=== PATIENT | female | born 1945 | race Caucasian/White ===

== ENCOUNTER 2017-03-31 12:50 | Day surgery (SDC) | payer MEDICARE, MEDICAID ==
[2017-03-30 11:54] VITALS: BMI 43.7
--- NOTE | 2017-03-31 14:33 | OP ---
DATE OF PROCEDURE: 03/31/2017 PRIMARY CARE PHYSICIAN: Dr. Cornelia Smith. TITLE OF PROCEDURE: Colonoscopy with snare polypectomy. PREOPERATIVE DIAGNOSIS: Lower gastrointestinal hemorrhage in the setting of acute diarrhea. POSTOPERATIVE DIAGNOSES: 1. Examination to cecum; good bowel preparation. 2. One small nonbleeding vascular ectasia in the transverse colon, not treated. 3. A 6 mm small sessile polyp in the distal transverse colon, removed by snare electrocautery. 4. No other synchronous polyps identified. 5. Small internal hemorrhoids that were not actively bleeding. PROCEDURE IN DETAIL: Written informed consent was obtained. The patient was brought to the endosco py suite. Total intravenous anesthesia was provided by Dr. Flores and associates. The patient was p laced in the left lateral decubitus position. A digital rectal exam was performed that was unremark able. A Pentax video colonoscope was inserted through the anal canal and advanced under direct visu alization to the cecum. Position in the cecum was verified by clear identification of the ileocecal valve and a cecal strap. The quality of the bowel preparation was good. Each colon segment was ex amined carefully as the colonoscope was slowly withdrawn from the cecum. Vascular pattern and haust ral folds appeared normal. In the mid transverse colon, a small 4 mm nonbleeding vascular ectasia w as identified. In the distal transverse colon, a 6 mm sessile polyp was identified and removed by s nare electrocautery. Good hemostasis was verified post-polypectomy. No other synchronous polyps we re identified. In the rectum, a retroflex view demonstrated small internal hemorrhoids that were no t actively bleeding. There was no evidence of active colitis or colonic ulcer. The colon was decom pressed as the colonoscope was removed from the patient. She was transferred to the day stay [facility] area for post-procedure monitoring. There were no immediate complications. RECOMMENDATIONS: 1. Await pathology results. 2. Ask the patient to call me in 1 week for pathology results. 3. Repeat colonoscopy depending on review of pathology results, most likely in 5 years. 4. Soak in a Sitz baths b.i.d. p.r.n. hemorrhoids. 5. Use Preparation-H suppositories 1 per rectum b.i.d. p.r.n. 6. High fiber diet. 7. Follow up with GI as needed.
== END 2017-03-31 15:05 | disposition home or self-care (01) ==
LOC: SDC 12:50
PROVIDERS: ATTEND Internal Medicine Gastroenterology
PROC: 0DBL8ZX Excision of Transverse Colon, Via Natural or Artificial Opening Endoscopic, Diagnostic (ICD-10-PCS; principal; 2017-03-31)
DX: Z12.11 Encounter for screening for malignant neoplasm of colon (principal); D12.3 Benign neoplasm of transverse colon; K31.819 Angiodysplasia of stomach and duodenum without bleeding; K64.8 Other hemorrhoids; E11.9 Type 2 diabetes mellitus without complications; K21.9 Gastro-esophageal reflux disease without esophagitis; I11.0 Hypertensive heart disease with heart failure; I50.9 Heart failure, unspecified; M19.90 Unspecified osteoarthritis, unspecified site; J45.909 Unspecified asthma, uncomplicated; G47.30 Sleep apnea, unspecified; I25.10 Atherosclerotic heart disease of native coronary artery without angina pectoris; Z79.82 Long term (current) use of aspirin; Z79.4 Long term (current) use of insulin; Z79.899 Other long term (current) drug therapy; Z99.81 Dependence on supplemental oxygen; Z88.1 Allergy status to other antibiotic agents; Z88.5 Allergy status to narcotic agent; Z88.8 Allergy status to other drugs, medicaments and biological substances; Z91.048 Other nonmedicinal substance allergy status; Z98.51 Tubal ligation status; Z91.040 Latex allergy status; Z87.891 Personal history of nicotine dependence; Z85.51 Personal history of malignant neoplasm of bladder
CPT/HCPCS: 36416; 88305; J7620

== ENCOUNTER 2017-08-16 09:22 | Outpatient (CLI) | payer MEDICARE, MEDICAID ==
--- NOTE | 2017-08-16 17:07 | HP ---
DATE OF SERVICE: 08/16/2017 HISTORY OF PRESENT ILLNESS: Ms. Ines Leiva is a very pleasant 72-year-old who presents to the [facility] for evaluation of an ulceration of the right sacral region. The patient states that the ulceration developed subsequent to an ant bite 3 weeks ago. The patient states that she has been rec eiving dressing changes with the assistance of home health for the right sacral ulceration. The joan ent states that home health has been cleansing the ulceration and packing the ulceration on a daily b asis. She states that because of pain associated with packing of the ulceration, she declined packin g of the wound yesterday. The patient has no other complaints today. She denies any fever or chills . The patient was referred to the Wound Center by Dr. Smith on 08/11/2017. PAST MEDICAL HISTORY: 1. Diabetes mellitus. 2. Hypertension. 3. Chronic obstructive pulmonary disease. 4. Gastroesophageal reflux disease. 5. Coronary artery disease. 6. Congestive heart failure. 7. Transitional cell carcinoma of the bladder. 8. Arthritis. 9. Lung nodule. 10. Obstructive sleep apnea. 11. Peripheral vascular disease. 12. Chronic respiratory failure. PAST SURGICAL HISTORY: 1. Surgery for transitional cell carcinoma of the bladder x4. 2. Back surgery. 3. Bilateral tubal ligation. 4. Cholecystectomy. MEDICATIONS: 1. Magnesium oxide. 2. Diovan. 3. Aldactone. 4. Aspirin 81 mg. 5. Brovana. 6. Pro-Air HFA. 7. Zetia. 8. DuoNeb. 9. Symbicort. 10. Calcium plus vitamin D. 11. Fish oil. 12. Lantus. 13. Plavix. 14. Ranitidine. 15. Dexilant. 16. Singulair. 17. Torsemide. 18. Levocetirizine. ALLERGIES: CODEINE, TETRACYCLINE, CEFACLOR, CIPROFLOXACIN. SOCIAL HISTORY: Significant for tobacco use of 1 pack of cigarettes per day for 35 years. The patie nt states that she stopped smoking 25 years ago. The patient admits to only the rare consumption of alcohol. FAMILY HISTORY: Significant for diabetes mellitus. The patient states that her father and grandmoth er were both diagnosed with diabetes mellitus. Family history is also significant for coronary arter y disease. The patient states that her father and grandmother were both diagnosed with coronary aaron ry disease. PHYSICAL EXAMINATION: VITAL SIGNS: Temperature 98.1, pulse 81, respirations 18, blood pressure 110/69, Accu-Chek 103. GENERAL: A 72-year-old female sitting on chair in examination room in no acute distress. HEENT: Normocephalic, atraumatic. The patient is utilizing O2 via nasal cannula. NECK: No nuchal rigidity. CHEST: Clear to auscultation. CARDIOVASCULAR: Regular rate and rhythm. ABDOMEN: Soft. EXTREMITIES: No clubbing or cyanosis. NEUROLOGIC: Grossly nonfocal. BACK: An ulceration of the right sacral region is present, which measures approximately 0.5 x 0.3 cm . Granulation tissue was present within the wound margins. Nonviable tissue present within the woun d margins was debrided with an excisional full-thickness debridement. No purulent drainages associat ed with the wound. No erythema of the skin surrounding the wound is present. ASSESSMENT AND PLAN: 1. Ulceration of right sacral region as described above. Dressing changes of Arglaes powder and bor dered gauze will be initiated today. These dressing changes are to be performed on a daily basis aft er cleansing and irrigation with the assistance of home health. No antibiotics will be prescribed to day based upon the appearance of the wound. I will see Ms. Leiva again in one week. 2. Diabetes mellitus. The patient's Accu-Chek in clinic today is 103. The patient has been told th at for optimal wound healing, her blood glucoses should remain below 150. 3. Hypertension. 4. Chronic obstructive pulmonary disease. 5. Gastroesophageal reflux disease. 6. Coronary artery disease. 7. Congestive heart failure. 8. Transitional cell carcinoma of the bladder. 9. Arthritis. 10. Lung nodule. 11. Obstructive sleep apnea. 12. Peripheral vascular disease. 13. Chronic respiratory failure.
== END 2017-08-16 09:23 | disposition home or self-care (01) ==
LOC: WCC 09:22
PROVIDERS: ATTEND Family Medicine
DX: L89.159 Pressure ulcer of sacral region, unspecified stage (principal); E11.69 Type 2 diabetes mellitus with other specified complication; J44.9 Chronic obstructive pulmonary disease, unspecified; K21.9 Gastro-esophageal reflux disease without esophagitis; I11.0 Hypertensive heart disease with heart failure; I50.9 Heart failure, unspecified; I25.10 Atherosclerotic heart disease of native coronary artery without angina pectoris; C67.9 Malignant neoplasm of bladder, unspecified; M19.90 Unspecified osteoarthritis, unspecified site; R91.1 Solitary pulmonary nodule; G47.33 Obstructive sleep apnea (adult) (pediatric); I73.9 Peripheral vascular disease, unspecified; J96.10 Chronic respiratory failure, unspecified whether with hypoxia or hypercapnia

== ENCOUNTER 2017-08-23 13:59 | Outpatient (CLI) | payer MEDICARE, MEDICAID ==
--- NOTE | 2017-08-23 15:32 | PRG ---
DATE OF SERVICE: 08/23/2017 HISTORY: Ms. Ines Leiva is a very pleasant 72-year-old who presents to the Wound Center for evaluation of an ulceration of the right sacral region. The patient stated at the time of her initi al presentation to the Wound Center that the ulceration developed subsequent to an ant bite 3 weeks p reviously. The patient stated that she had been receiving dressing changes with the assistance of [facility] for the right sacral ulceration. The patient stated that [facility] had been cleansing th e ulceration and packing the ulceration on a daily basis. She stated that because of pain associated with packing of the ulceration, she had declined packing of the wound one day prior to her initial v isit to the Wound Center. The patient was referred to the Wound Center by Dr. Smith on 08/11/2017. After being seen in the Wound Center, dressing changes of Arglaes powder and bordered gauze were in itiated. The patient has been receiving these dressing changes on a daily basis after cleansing and irrigation with the assistance of [facility]. Ms. Leiva has no complaints today. She denies an y fever or chills. PHYSICAL EXAMINATION: VITAL SIGNS: Temperature 98.3, pulse 89, respirations 18, blood pressure 133/60, Accu-Chek 105. BACK: An ulceration of the right sacral region is present which measures approximately 0.5 x 0.2 cm. The dimensions of the wound at the time of the patient's last visit were approximately 0.5 x 0.3 cm . Granulation tissue is present within the wound margins. Nonviable tissue present within the wound margins was debrided with an excisional full-thickness debridement. No purulent drainage is associa cosme with the wound. No erythema of the skin surrounding the wound is present. ASSESSMENT AND PLAN: 1. Ulceration of right sacral region as described above. Dressing changes of Arglaes powder and bor dered gauze will be continued on a daily basis after cleansing and irrigation with the assistance of Home Health. I will see Ms. Leiva again in two weeks. 2. Diabetes mellitus. The patient's Accu-Chek in clinic today is 105. The patient has been reminde d that for optimal wound healing, her blood glucoses should remain below 150. 3. Hypertension. 4. Chronic obstructive pulmonary disease. 5. Gastroesophageal reflux disease. 6. Coronary artery disease. 7. Congestive heart failure. 8. Transitional cell carcinoma of the bladder. 9. Arthritis. 10. Lung nodule. 11. Obstructive sleep apnea. 12. Peripheral vascular disease. 13. Chronic respiratory failure.
== END 2017-08-23 14:00 | disposition home or self-care (01) ==
LOC: WCC 13:59
PROVIDERS: ATTEND Family Medicine
DX: E11.622 Type 2 diabetes mellitus with other skin ulcer (principal); L98.429 Non-pressure chronic ulcer of back with unspecified severity; J44.9 Chronic obstructive pulmonary disease, unspecified; K21.9 Gastro-esophageal reflux disease without esophagitis; I25.10 Atherosclerotic heart disease of native coronary artery without angina pectoris; I11.0 Hypertensive heart disease with heart failure; I50.9 Heart failure, unspecified; C67.9 Malignant neoplasm of bladder, unspecified; M19.90 Unspecified osteoarthritis, unspecified site; R91.1 Solitary pulmonary nodule; G47.33 Obstructive sleep apnea (adult) (pediatric); E11.51 Type 2 diabetes mellitus with diabetic peripheral angiopathy without gangrene; I73.9 Peripheral vascular disease, unspecified; J96.10 Chronic respiratory failure, unspecified whether with hypoxia or hypercapnia

== ENCOUNTER 2017-09-06 13:18 | Outpatient (CLI) | payer MEDICARE, OTHER ==
[~2017-09-06 13:18] MED LIST: Lidocaine 2% Jelly 5 ML TUBE ONE; Sodium Chloride 0.9% 15 ML NEB ONE
--- NOTE | 2017-09-06 17:29 | PRG ---
DATE OF SERVICE: 09/06/2017 SUBJECTIVE: Ms. Ines Leiva is a very pleasant 72-year-old who presents to the Wound Center f or evaluation of an ulceration of the right sacral region. The patient stated at the time of her ini tial presentation to the Wound Center that the ulceration developed subsequent to an ant bite 3 weeks previously. The patient stated that she had been receiving dressing changes with the assistance of Home Health for the right sacral ulceration. The patient stated that home health has been cleansing the ulceration and packing the ulceration on a daily basis. The patient stated that because of pain associated with packing of the ulceration, she declined packing of the wound one day prior to her ini tial visit to the Wound Center. The patient was referred to the Wound Center by Dr. Smith on 08/11. After being seen in the Wound Center, dressing changes of Arglaes powder and bordered gauze w ere initiated. The patient has been receiving these dressing changes on a daily basis after cleansin g and irrigation with the assistance of Home Health. The patient has no complaints today. She denie s any fever or chills. OBJECTIVE: VITAL SIGNS: Temperature 98.1, pulse 98, respirations 18 and blood pressure 104/47. Accu-Chek 120. BACK: An ulceration of the right sacral region is present, which measures approximately 0.4 x 0.5 cm . The dimensions of the wound at the time of the patient's visit on 08/23/2017 were approximately 0. 5 x 0.2 cm. Granulation tissue was present within the wound margins. Necrotic and nonviable tissue present within the wound margins was debrided with an excisional full-thickness debridement with the use of a curette. No purulent drainage is associated with the wound. No erythema of the skin surrou nding the wound is present. No maceration of the skin of the periwound is noted. ASSESSMENT AND PLAN: 1. Ulceration of right sacral region as described above. Dressing changes of Promogran and bordered gauze will be initiated today. These dressing changes are to be performed on a daily basis after cl eansing and irrigation with the assistance of Home Health. I will see Ms. Leiva again in two [facility]. 2. Diabetes mellitus. The patient's Accu-Chek in clinic today is 120. The patient has been reminde d that for optimal wound healing, her blood glucoses should remain below 150. 3. Hypertension. 4. Chronic obstructive pulmonary disease. 5. Gastroesophageal reflux disease. 6. Coronary artery disease. 7. Congestive heart failure. 8. Transitional cell carcinoma of the bladder. 9. Arthritis. 10. Lung nodule. 11. Obstructive sleep apnea. 12. Peripheral vascular disease. 13. Chronic respiratory failure.
== END 2017-09-06 13:19 | disposition home or self-care (01) ==
LOC: WCC 13:18
PROVIDERS: ATTEND Family Medicine
DX: L98.428 Non-pressure chronic ulcer of back with other specified severity (principal); I10 Essential (primary) hypertension; J44.9 Chronic obstructive pulmonary disease, unspecified; K21.9 Gastro-esophageal reflux disease without esophagitis; I25.10 Atherosclerotic heart disease of native coronary artery without angina pectoris; I50.9 Heart failure, unspecified; C67.9 Malignant neoplasm of bladder, unspecified; M19.90 Unspecified osteoarthritis, unspecified site; R91.1 Solitary pulmonary nodule; G47.33 Obstructive sleep apnea (adult) (pediatric); E11.51 Type 2 diabetes mellitus with diabetic peripheral angiopathy without gangrene; I73.9 Peripheral vascular disease, unspecified; J96.10 Chronic respiratory failure, unspecified whether with hypoxia or hypercapnia
CPT/HCPCS: 11042; A4218

== ENCOUNTER 2017-10-04 13:24 | Outpatient (CLI) | payer MEDICARE, MEDICAID ==
--- NOTE | 2017-10-04 15:18 | PRG ---
DATE OF SERVICE: 10/04/2017 HISTORY: Ms. Ines Leiva is a very pleasant 72-year-old who presents to the Wound Center for patricia luation of an ulceration of the left sacral region. The patient stated at the time of her initial pr esentation to the Wound Center that the ulceration had developed subsequent to an ant bite 3 weeks pr eviously. The patient stated that she had been receiving dressing changes with the assistance of [facility] [email or web address] for the left sacral ulceration. The patient stated that home health had been cleansing the ulceration and packing the ulceration on a daily basis. The patient stated that because of pain asso ciated with packing of the ulceration, she declined packing of the wound one day prior to her initial visit to the Wound Center. The patient was referred to the Wound Center by Dr. Smith on 8. After being seen in the Wound Center, dressing changes of Arglaes powder and bordered gauze were initiated. The patient received these dressing changes on a daily basis after cleansing and irrigati on with the assistance of Home Health. At the time of the patient's visit on 09/06/2017, the patient was placed on dressing changes of Promogran and bordered gauze. Again, these dressing changes were performed on a daily basis after cleansing and irrigation with the assistance of Home Health. PHYSICAL EXAMINATION: VITAL SIGNS: Temperature 97.6, pulse 91, respirations 18, blood pressure 124/56. Accu-Chek 85. BACK: An ulceration of the left sacral region is present, which measures approximately 0.5 x 0.5 cm. The dimensions of the wound at the time of the patient's visit on 09/06/2017 were approximately 0.4 x 0.5 cm. Granulation tissue is present within the wound margins. Necrotic and nonviable tissue pr esent within the wound margins was debrided with an excisional full-thickness debridement with the us e of a curette. No purulent drainage is associated with the wound. No erythema of the skin surround ing the wound is present. No maceration of the skin of the periwound is noted. ASSESSMENT AND PLAN: 1. Ulceration of left sacral region as described above. Dressing changes of Santyl will be initiate d today. These dressing changes are to be performed on a daily basis after cleansing and irrigation with the assistance of Home Health. The patient will be enrolled in a program for the home delivery of Santyl. I will see Ms. Leiva again in two weeks. 2. Diabetes mellitus. The patient's Accu-Chek in clinic today is 85. The patient has been reminded that for optimal wound healing, her blood glucoses should remain below 150. 3. Hypertension. 4. Chronic obstructive pulmonary disease. 5. Gastroesophageal reflux disease. 6. Coronary artery disease. 7. Congestive heart failure. 8. Transitional cell carcinoma of the bladder. 9. Arthritis. 10. Lung nodule. 11. Obstructive sleep apnea. 12. Peripheral vascular disease. 13. Chronic respiratory failure.
[2017-10-04] MEDS ORDERED: Sodium Chloride 0.9% 15 ML NEB ONE (17:57)
[2017-10-04] MEDS ORDERED: Lidocaine 2% Jelly 5 ML TUBE ONE (17:57)
== END 2017-10-04 13:25 | disposition home or self-care (01) ==
LOC: WCC 13:24
PROVIDERS: ATTEND Family Medicine
DX: L89.159 Pressure ulcer of sacral region, unspecified stage (principal); E11.9 Type 2 diabetes mellitus without complications; J44.9 Chronic obstructive pulmonary disease, unspecified; C67.9 Malignant neoplasm of bladder, unspecified; I11.0 Hypertensive heart disease with heart failure; I50.9 Heart failure, unspecified; K21.9 Gastro-esophageal reflux disease without esophagitis; I25.10 Atherosclerotic heart disease of native coronary artery without angina pectoris; M19.90 Unspecified osteoarthritis, unspecified site; G47.33 Obstructive sleep apnea (adult) (pediatric); I73.9 Peripheral vascular disease, unspecified; J96.10 Chronic respiratory failure, unspecified whether with hypoxia or hypercapnia; R91.1 Solitary pulmonary nodule
CPT/HCPCS: 11042; A4218

== ENCOUNTER 2017-10-25 09:26 | Outpatient (CLI) | payer MEDICARE, MEDICAID ==
--- NOTE | 2017-10-25 11:46 | PRG ---
DATE OF SERVICE: 10/25/2017 HISTORY: Ms. Ines Leiva is a very pleasant 72-year-old who presents to the Wound Center for patricia luation of an ulceration of the left sacral region. The patient stated at the time of her initial pr esentation to the Wound Center that the ulceration had developed subsequent to an ant bite 3 weeks pr eviously. The patient stated that she has been receiving dressing changes with the assistance of [facility] for the left sacral ulceration. The patient stated that home health had been cleansing the ulceration and impacting the ulceration on a daily basis. The patient stated that because of pain as sociated with packing of the ulceration, she declined packing of the wound one day prior to her initi al visit to the Wound Center. The patient was referred to the Wound Center by Dr. Smith on 018. After being seen in the Wound Center, dressing changes of Arglaes powder and bordered gauze wer e initiated. The patient received these dressing changes on a daily basis after cleansing and irriga tion with the assistance of Home Health. At the time of the patient's visit on 09/06/2017, the patie nt was placed on dressing changes of Promogran and bordered gauze. Again, these dressing changes wer e performed on a daily basis after cleansing and irrigation with the assistance of Home Health. Sin e the patient's last visit, Ms. Leiva has been receiving daily dressing changes of Santyl again w ith the assistance of Home Health. PHYSICAL EXAMINATION: VITAL SIGNS: Temperature 97.5, pulse 83, respirations 18, blood pressure 106/56. Accu-Chek 97. BACK: An ulceration of the left sacral region is present which measures approximately 0.3 x 0.3 cm. The dimensions of the wound at the time of the patient's visit on 10/04/2017 were approximately 0.5 x 0.5 cm. Granulation tissue is present within the wound margins. Necrotic and nonviable tissue pre sent within the wound margins was debrided with an excisional full-thickness debridement. No purulen t drainage is associated with the wound. No erythema of the skin surrounding the wound is present. No maceration of the skin of the periwound is noted. ASSESSMENT AND PLAN: 1. Ulceration of left sacral region as described above. Dressing changes of Santyl will be continue d on a daily basis after cleansing and irrigation with the assistance of Home Health. The patient wa s previously enrolled in a program for the home delivery of Santyl. I will see Ms. Leiva again i n two weeks if her wound is still present at this time. 2. Diabetes mellitus. The patient's Accu-Chek in clinic today is 97. The patient has been reminded that for optimal wound healing, her blood glucoses should remain below 150. 3. Hypertension. 4. Chronic obstructive pulmonary disease. 5. Gastroesophageal reflux disease. 6. Coronary artery disease. 7. Congestive heart failure. 8. Transitional cell carcinoma of the bladder. 9. Arthritis. 10. Lung nodule. 11. Obstructive sleep apnea. 12. Peripheral vascular disease. 13. Chronic respiratory failure.
== END 2017-10-25 09:27 | disposition home or self-care (01) ==
LOC: WCC 09:26
PROVIDERS: ATTEND Family Medicine
DX: L89.159 Pressure ulcer of sacral region, unspecified stage (principal); E11.9 Type 2 diabetes mellitus without complications; J44.9 Chronic obstructive pulmonary disease, unspecified; K21.9 Gastro-esophageal reflux disease without esophagitis; I25.10 Atherosclerotic heart disease of native coronary artery without angina pectoris; I11.0 Hypertensive heart disease with heart failure; I50.9 Heart failure, unspecified; C67.9 Malignant neoplasm of bladder, unspecified; M19.90 Unspecified osteoarthritis, unspecified site; R91.1 Solitary pulmonary nodule; G47.33 Obstructive sleep apnea (adult) (pediatric); I73.9 Peripheral vascular disease, unspecified; J96.10 Chronic respiratory failure, unspecified whether with hypoxia or hypercapnia

== ENCOUNTER 2017-11-15 08:57 | Outpatient (CLI) | payer MEDICARE, OTHER ==
--- NOTE | 2017-11-15 10:36 | PRG ---
DATE OF SERVICE: 11/15/2017 HISTORY: Ms. Ines Leiva is a very pleasant 72-year-old who presents to the Wound Center for evaluation of an ulceration of the left sacral region. The patient stated at the time of her initia l presentation to the Wound Center that the ulceration had developed subsequent to an ant bite 3 week s previously. The patient stated that she had been receiving dressing changes with the assistance of Home Health for the left sacral ulceration. The patient stated that home health had been cleansing the ulceration and packing the ulceration on a daily basis. The patient stated that because of pain associated with packing of the ulceration she declined packing of the wound one day prior to her init ial visit to the Wound Center. The patient was referred to the Wound Center by Dr. Smith on 2017. After being seen in the Wound Center, dressing changes of Arglaes powder and bordered gauze we re initiated. The patient received these dressing changes on a daily basis after cleansing and irrig ation with the assistance of Home Health. At the time of the patient's visit on 09/06/2017 the patie nt was placed on dressing changes of Promogran and bordered gauze. Again, these dressing changes wer e performed on a daily basis after cleansing and irrigation with the assistance of Home Health. Sinc e the patient's last visit, Ms. Leiva has been receiving dressing changes of Santyl again on a da hunter basis after cleansing and irrigation with the assistance of Home Health. PHYSICAL EXAMINATION: VITAL SIGNS: Temperature 97.7, pulse 86, respirations 18, blood pressure 118/54. Accu-Chek 91. BACK: An ulceration of the left sacral region is present which measures approximately 0.4 x 0.3 cm. The dimensions of the wound at the time of the patient's last visit were approximately 0.3 x 0.3 cm. Granulation tissue is present within the wound margins. Necrotic and nonviable tissue present with in the wound margins was debrided with an excisional full-thickness debridement. No purulent drainag e is associated with the wound. No erythema of the skin surrounding the wound is present. No macera tion of the skin of the periwound is noted. ASSESSMENT AND PLAN: 1. Ulceration of left sacral region as described above. Dressing changes of Santyl will be disconti nued. Dressing changes of Promogran will be initiated today. These dressing changes are to be perfo rmed 3 times per week after cleansing and irrigation with the assistance of Home Health. I will see Ms. Leiva again in 2 weeks. 2. Diabetes mellitus. The patient's Accu-Chek in clinic today is 91. The patient has been reminded that for optimal wound healing, her blood glucoses should remain below 150. 3. Hypertension. 4. Chronic obstructive pulmonary disease. 5. Gastroesophageal reflux disease. 6. Coronary artery disease. 7. Congestive heart failure. 8. Transitional cell carcinoma of the bladder. 9. Arthritis. 10. Lung nodule. 11. Obstructive sleep apnea. 12. Peripheral vascular disease. 13. Chronic respiratory failure.
== END 2017-11-15 08:58 | disposition home or self-care (01) ==
LOC: WCC 08:57
PROVIDERS: ATTEND Family Medicine
DX: L89.159 Pressure ulcer of sacral region, unspecified stage (principal); E11.9 Type 2 diabetes mellitus without complications; J44.9 Chronic obstructive pulmonary disease, unspecified; K21.9 Gastro-esophageal reflux disease without esophagitis; I25.10 Atherosclerotic heart disease of native coronary artery without angina pectoris; I11.0 Hypertensive heart disease with heart failure; I50.9 Heart failure, unspecified; M19.90 Unspecified osteoarthritis, unspecified site; R91.1 Solitary pulmonary nodule; G47.33 Obstructive sleep apnea (adult) (pediatric); I73.9 Peripheral vascular disease, unspecified; J96.10 Chronic respiratory failure, unspecified whether with hypoxia or hypercapnia; C67.9 Malignant neoplasm of bladder, unspecified
CPT/HCPCS: 11042

== ENCOUNTER 2017-12-11 12:46 | Outpatient (CLI) | payer MEDICARE, OTHER ==
--- NOTE | 2017-12-11 15:43 | PRG ---
DATE OF SERVICE: 12/11/2017 HISTORY: Ms. Ines Leiva is a very pleasant 72-year-old who presents to the [facility] Center for patricia luation of an ulceration of the left sacral region. The patient stated at the time of her initial pr esentation to the Wound Center that the ulceration had developed subsequent to an ant bite 3 weeks pr eviously. The patient stated that she has been receiving dressing changes with the assistance of [facility] [employer] for the left sacral ulceration. The patient stated that home health had been cleansing the ulceration and packing the ulceration on a daily basis. The patient stated that because of pain asso ciated with packing of the ulceration, she declined packing of the wound one day prior to her initial visit to the Wound Center. The patient was referred to the Wound Center by Dr. Smith on 8. After being seen in the Wound Center, dressing changes of Arglaes powder and bordered gauze were initiated. The patient received these dressing changes on a daily basis after cleansing and irrigati on with the assistance of Home Health. The patient has also received a trial of dressing changes wit h [place]. Since the patient's last visit, Ms. Leiva has been receiving dressing changes of Promo gran every other day after cleansing and irrigation with the assistance of Home Health and the patien t's daughter. PHYSICAL EXAMINATION: VITAL SIGNS: Temperature 98.5, pulse 85, respirations 16, blood pressure 146/65. Accu-Chek 94. BACK: An ulceration of the left sacral region is present, which measures approximately 0.3 x 0.3 cm. The dimensions of the wound at the time of the patient's last visit were approximately 0.4 x 0.3 cm . Granulation tissue is present within the wound margins. Necrotic and nonviable tissue present wit hin the wound margins was debrided with an excisional full-thickness debridement with the use of a cu rette. No purulent drainage is associated with the wound. No erythema of the skin surrounding the w ound is present. No maceration of the skin of the periwound is noted. A lesion of the periwound was excised with the use of scissors and sent to pathology for histologic examination. ASSESSMENT AND PLAN: 1. Ulceration of left sacral region as described above. Dressing changes of Promogran will be mello nued every other day after cleansing and irrigation with the assistance of Home Health and the patien jeremias's daughter. I will see Ms. Leiva again in two weeks. At this time, the patient will be given her biopsy results. The lesion of the periwound was excised and sent to pathology in order to rule o ut fungus or malignancy. The patient understands and is in agreement with the preceding treatment pl an. 2. Diabetes mellitus. The patient's Accu-Chek in clinic today is 94. The patient has been reminded that for optimal wound healing, her blood glucoses should remain below 150. 3. Hypertension. 4. Chronic obstructive pulmonary disease. 5. Gastroesophageal reflux disease. 6. Coronary artery disease. 7. Congestive heart failure. 8. Transitional cell carcinoma of the bladder. 9. Arthritis. 10. Lung nodule. 11. Obstructive sleep apnea. 12. Peripheral vascular disease. 13. Chronic respiratory failure.
== END 2017-12-11 12:47 | disposition home or self-care (01) ==
LOC: WCC 12:46
PROVIDERS: ATTEND Family Medicine
DX: E11.622 Type 2 diabetes mellitus with other skin ulcer (principal); L98.419 Non-pressure chronic ulcer of buttock with unspecified severity; J44.9 Chronic obstructive pulmonary disease, unspecified; K21.9 Gastro-esophageal reflux disease without esophagitis; I11.0 Hypertensive heart disease with heart failure; I50.9 Heart failure, unspecified; J96.10 Chronic respiratory failure, unspecified whether with hypoxia or hypercapnia; I25.10 Atherosclerotic heart disease of native coronary artery without angina pectoris; C67.9 Malignant neoplasm of bladder, unspecified; G47.33 Obstructive sleep apnea (adult) (pediatric)
CPT/HCPCS: 11042; 88305; A4218

== ENCOUNTER 2017-12-25 12:31 | Outpatient (CLI) | payer MEDICARE, OTHER ==
--- NOTE | 2017-12-25 14:04 | PRG ---
DATE OF SERVICE: 12/25/2017 HISTORY: Ms. Ines Leiva is a very pleasant 72-year-old who presents to the Wound Center for patricia luation of an ulceration of the left sacral region. The patient stated at the time of her initial pr esentation to the Wound Center that the ulceration had developed subsequent to ant bite 3 weeks previ ously. The patient stated that she had been receiving dressing changes with the assistance of Home ealth for the left sacral ulceration. The patient stated that home health had been cleansing the ul eration and packing the ulceration on a daily basis. The patient stated that because of pain associa cosme with packing of the ulceration, she declined packing of the wound one day prior to her initial vi sit to the Wound Center. The patient was referred to the Wound Center by Dr. Smith on 08/11/2017. After being seen in the Wound Center, dressing changes of Arglaes powder and bordered gauze were ini tiated. These dressing changes were performed on a daily basis after cleansing and irrigation with t assistance of Home [facility]. The patient has also received a trial of dressing changes with Santyl. Since the patient's last visit, Ms. Leiva has been receiving dressing changes of Promogran with the assistance of [facility] and her daughter. PHYSICAL EXAMINATION: VITAL SIGNS: Temperature 98.1, pulse 92, respirations 22, blood pressure 109/51. Accu-Chek 94. BACK: An ulceration of the sacral region is present which measures approximately 0.3 x 0.4 cm. The dimensions of the wound at the time of the patient's last visit were approximately 0.3 x 0.3 cm. The depths of the wound, however, is less than at the time of the patient's last visit. Granulation tis jameson is present within the wound margins. Necrotic and nonviable tissue present within the wound malgorzata ins was debrided with an excisional full-thickness debridement. No purulent drainage is associated w ith the wound. No erythema of the skin surrounding the wound is present. No maceration of the skin of the periwound is noted. ASSESSMENT AND PLAN: 1. Ulceration of left sacral region as described above. Dressing changes of Promogran will be mello nued every other day or alternatively three times per week after cleansing and irrigation with the as sistance of Home Health and the patient's daughter. I will see Ms. Leiva again in two weeks. Bi opsy of the lesion of the periwound returned hyperkeratotic corneal layer. The patient was given the biopsy results in clinic today. 2. Diabetes mellitus. The patient's Accu-Chek in clinic today is 94. The patient has been reminded that for optimal wound healing, her blood glucoses should remain below 150. 3. Hypertension. 4. Chronic obstructive pulmonary disease. 5. Gastroesophageal reflux disease. 6. Coronary artery disease. 7. Congestive heart failure. 8. Transitional cell carcinoma of the bladder. 9. Arthritis. 10. Lung nodule. 11. Obstructive sleep apnea. 12. Peripheral vascular disease. 13. Chronic respiratory failure.
== END 2017-12-25 12:32 | disposition home or self-care (01) ==
LOC: WCC 12:31
PROVIDERS: ATTEND Family Medicine
DX: L89.159 Pressure ulcer of sacral region, unspecified stage (principal); E11.9 Type 2 diabetes mellitus without complications; I25.10 Atherosclerotic heart disease of native coronary artery without angina pectoris; J44.9 Chronic obstructive pulmonary disease, unspecified; K21.9 Gastro-esophageal reflux disease without esophagitis; I11.0 Hypertensive heart disease with heart failure; I50.9 Heart failure, unspecified; G47.33 Obstructive sleep apnea (adult) (pediatric); M19.90 Unspecified osteoarthritis, unspecified site; I73.9 Peripheral vascular disease, unspecified; C67.9 Malignant neoplasm of bladder, unspecified; J96.10 Chronic respiratory failure, unspecified whether with hypoxia or hypercapnia; R91.1 Solitary pulmonary nodule
CPT/HCPCS: 11042

== ENCOUNTER 2018-01-15 13:44 | Outpatient (CLI) | payer MEDICARE, OTHER ==
--- NOTE | 2018-01-15 18:06 | PRG ---
DATE OF SERVICE: 01/15/2018 HISTORY: Ms. Ines Leiva is a very pleasant 72-year-old who presents to the Wound Center for patricia luation of an ulceration of the left sacral region. The patient stated at the time of her initial pr esentation to the Wound Center that the ulceration had developed subsequent to an ant bite 3 weeks pr eviously. The patient stated that she had been receiving dressing changes with the assistance of [facility] for the left sacral ulceration. The patient stated that Home Health had been cleansing the ulceration and packing the ulceration on a daily basis. The patient stated that because of pain asso ciated with packing of the ulceration, she declined packing of the wound one day prior to her initial visit to the Wound Center. The patient was referred to the Wound Center by Dr. Smith on 8. After being seen in the Wound Center, dressing changes of Arglaes powder and bordered gauze were initiated. These dressing changes were performed on a daily basis after cleansing and irrigation wit h the assistance of [facility]. The patient has also received a trial of dressing changes with Juan yl. Since the patient's last visit, Ms. Leiva has been receiving dressing changes with the [facility] and a family member. PHYSICAL EXAMINATION: VITAL SIGNS: Temperature 98.3, pulse 90, respirations 20, blood pressure 122/61, Accu-Chek 114. BACK: An ulceration of the sacral region is present, which measures approximately 0.5 x 0.3 cm. The dimensions of the wound at the time of the patient's last visit were approximately 0.3 x 0.4 cm. Th e depth of the wound, however, is again less than at the time of the patient's last visit. Granulati on tissue is present within the wound margins. Necrotic and nonviable tissue present within the woun d margins was debrided with an excisional full-thickness debridement. No purulent drainage is associ ated with the wound. No erythema of the skin surrounding the wound is present. No maceration of the skin of the periwound is noted. ASSESSMENT AND PLAN: 1. Ulceration of left sacral region as described above. Dressing changes of Promogran will be mello nued every other day or alternatively three times per week after cleansing and irrigation with the as sistance of Home Health and a family member. I will see Ms. Leiva again in two weeks. 2. Diabetes mellitus. The patient's Accu-Chek in clinic today is 114. The patient has been reminde d that for optimal wound healing, her blood glucoses should remain below 150. 3. Hypertension. 4. Chronic obstructive pulmonary disease. 5. Gastroesophageal reflux disease. 6. Coronary artery disease. 7. Congestive heart failure. 8. Transitional cell carcinoma of the bladder. 9. Arthritis. 10. Lung nodule. 11. Obstructive sleep apnea. 12. Peripheral vascular disease. 13. Chronic respiratory failure.
== END 2018-01-15 13:45 | disposition home or self-care (01) ==
LOC: WCC 13:44
PROVIDERS: ATTEND Family Medicine
DX: E11.622 Type 2 diabetes mellitus with other skin ulcer (principal); L98.499 Non-pressure chronic ulcer of skin of other sites with unspecified severity; J44.9 Chronic obstructive pulmonary disease, unspecified; I25.10 Atherosclerotic heart disease of native coronary artery without angina pectoris; K21.9 Gastro-esophageal reflux disease without esophagitis; I11.0 Hypertensive heart disease with heart failure; I50.9 Heart failure, unspecified; C67.9 Malignant neoplasm of bladder, unspecified; M19.90 Unspecified osteoarthritis, unspecified site; R91.1 Solitary pulmonary nodule; I73.9 Peripheral vascular disease, unspecified; J96.10 Chronic respiratory failure, unspecified whether with hypoxia or hypercapnia; W57.XXXD Bitten or stung by nonvenomous insect and other nonvenomous arthropods, subsequent encounter
CPT/HCPCS: 11042

== ENCOUNTER 2018-03-08 15:45 | Outpatient (CLI) | payer MEDICARE, OTHER ==
--- NOTE | 2018-03-08 18:14 | PRG ---
DATE OF SERVICE: 03/08/2018 HISTORY: Ms. Ines Leiva is a very pleasant 73-year-old who presents to the Wound Center for evaluation of an ulceration of the left sacral region. The patient stated at the time of her initia l presentation to the Wound Center that the ulceration had developed subsequent to an ant bite 3 week s previously. The patient stated that she had been receiving dressing changes with the assistance of Home Health for the left sacral ulceration. The patient stated that home health had been cleansing the ulceration and packing the ulceration on a daily basis. The patient stated that because of pain associated with packing of the ulceration, she declined packing of the wound one day prior to her ini tial visit to the Wound Center. The patient was referred to the Wound Center by Dr. Smith on 08/11. After being seen in the Wound Center, dressing changes of Arglaes powder and bordered gauze w ere initiated. These dressing changes were performed on a daily basis after cleansing and irrigation with the assistance of Home Health. The patient has also received a trial of dressing changes with Santyl. Most recently, the patient has been receiving dressing changes of Promogran. PHYSICAL EXAMINATION: VITAL SIGNS: Temperature 97.5, pulse 103, respirations 28, blood pressure 138/64. Accu-Chek 126. BACK: The ulceration of the sacral region has divided into 2 smaller wounds. The depth of each woun d is less than the depth of the wound at the time of the patient's last visit. Granulation tissue is present within the margins of each wound. Necrotic and nonviable tissue present within the margins of each wound was debrided with an excisional full-thickness debridement with the use of a curette. No purulent drainage is associated with either wound. No erythema of the skin surrounding either wou nd is present. Maceration versus keratinization of the skin of the periwound is noted. ASSESSMENT AND PLAN: 1. Ulceration of left sacral region as described above. As stated above, the ulceration has divided into 2 smaller wounds. Dressing changes of Medihoney and Mepilex border will be initiated today. T hese dressing changes are to be performed 3 times per week after cleansing and irrigation with the as sistance of Home Health. I will see Mr. Leiva again in 3 weeks. 2. Diabetes mellitus. The patient's Accu-Chek in clinic today is 126. The patient has been reminde d that for optimal wound healing, her blood glucoses should remain below 150. 3. Hypertension. 4. Chronic obstructive pulmonary disease. 5. Gastroesophageal reflux disease. 6. Coronary artery disease. 7. Congestive heart failure. 8. Transitional cell carcinoma of the bladder. 9. Arthritis. 10. Lung nodule. 11. Obstructive sleep apnea. 12. Peripheral vascular disease. 13. Chronic respiratory failure.
== END 2018-03-08 15:46 | disposition home or self-care (01) ==
LOC: WCC 15:45
PROVIDERS: ATTEND Family Medicine
DX: E11.622 Type 2 diabetes mellitus with other skin ulcer (principal); L98.429 Non-pressure chronic ulcer of back with unspecified severity; I11.0 Hypertensive heart disease with heart failure; I50.9 Heart failure, unspecified; J44.9 Chronic obstructive pulmonary disease, unspecified; K21.9 Gastro-esophageal reflux disease without esophagitis; C67.9 Malignant neoplasm of bladder, unspecified; M19.90 Unspecified osteoarthritis, unspecified site; R91.1 Solitary pulmonary nodule; G47.33 Obstructive sleep apnea (adult) (pediatric); I73.9 Peripheral vascular disease, unspecified; J96.90 Respiratory failure, unspecified, unspecified whether with hypoxia or hypercapnia
CPT/HCPCS: 11042

== ENCOUNTER 2018-05-29 09:19 | Outpatient (CLI) | payer MEDICARE, MEDICAID ==
--- NOTE | 2018-05-29 09:47 | RAD ---
TWO VIEW CHEST: Comparison: 11-24-16 Indication: Dyspnea. FINDINGS: There is stable linear density of the left lower lung zone indicating subsegmental atelectasis. Diffu se interstitial prominence may relate to edema versus chronic interstitial lung disease, similar appe aring. Cardiac silhouette is at upper limits of normal in size. There is vascular calcification and o sseous degenerative change. IMPRESSION: 1. Persistent linear density left lower lung zone indicating subsegmental atelectasis, or alternative ly, scar. 2. Diffuse interstitial opacities as discussed above. POS: SARAVANAN
== END 2018-05-29 09:20 | disposition home or self-care (01) ==
LOC: RAD 09:19
PROVIDERS: ATTEND Internal Medicine Critical Care Medicine
DX: R06.00 Dyspnea, unspecified (principal); R91.8 Other nonspecific abnormal finding of lung field
CPT/HCPCS: 71046

== ENCOUNTER 2018-12-07 14:42 | Inpatient (IN) | payer MEDICARE, MEDICAID ==
[2018-12-07] MEDS ORDERED: Albuterol Sulfate 2.5 mg/3 ml Neb ONE (16:23)
[2018-12-07 20:21] VITALS: BMI 41.6
[2018-12-07] MEDS ORDERED: Albuterol Sulfate 2.5 mg/3 ml Neb NEB PRN (20:27)
[2018-12-07] MEDS ORDERED: Nitroglycerin 0.4 MG TAB (25 Tab Bottle) SL PRN (20:31)
[2018-12-07] MEDS ORDERED: PROVENTIL INHALER 6.7 G (200 INHALATIONS) INH PRN (20:31)
[2018-12-07] MEDS ORDERED: Budesonide 0.25 MG/2 ML NEB NEB SCH (21:00)
[2018-12-07] MEDS ORDERED: Fluticasone Propionate Nasal Spray 16 gm Bottle NASAL PRN (21:45)
[2018-12-07] MEDS ORDERED: Dextrose 50% Abboject 50 ML SYRINGE SLOW IVP PRN (22:39)
[2018-12-07] MEDS ORDERED: Dextrose 5% in Water 1,000 ML IV PRN (22:39)
[2018-12-07] MEDS ORDERED: Insulin Regular 300 UNITS/3 ML VIAL SC PRN (22:39)
[2018-12-07] MEDS: methylPREDNISolone Sod Succ 40 MG VIAL IVP SCH (23:07)
[2018-12-07] MEDS: Famotidine 20 MG TAB PO SCH (23:07)
[2018-12-07] MEDS: HumaLOG 300 UNITS/3 ML VIAL SC PRN (23:13)
[2018-12-07] MEDS: Loratadine 10 MG TAB PO SCH (23:25)
[2018-12-08] MEDS: Azithromycin 500 MG in Sodium Chloride 0.9% 250 ML 250 ML IVPB SCH (01:46)
[2018-12-08] MEDS: methylPREDNISolone Sod Succ 40 MG VIAL IVP SCH ×4 (05:13→23:37)
[2018-12-08] MEDS: HumaLOG 300 UNITS/3 ML VIAL SC PRN ×4 (05:13→20:59)
[2018-12-08] MEDS: Ezetimibe 10 MG TAB PO SCH (08:27)
[2018-12-08] MEDS: Aspirin 81 mg Enteric Coated Tablet PO SCH (08:27)
[2018-12-08] MEDS: Clopidogrel Bisulfate 75 MG TAB PO SCH (08:27)
[2018-12-08] MEDS: Calcium Carbonate + Vit D 1 TAB PO SCH (08:27)
[2018-12-08] MEDS: Famotidine 20 MG TAB PO SCH ×2 (08:27→20:59)
[2018-12-08] MEDS ORDERED: Budesonide 0.5 MG/2 ML NEB NEB SCH (10:45)
[2018-12-08] MEDS ORDERED: Arformoterol 15 MCG/2 ML NEB NEB SCH (10:45)
[2018-12-08] MEDS: Valsartan 80 MG TAB PO SCH (11:28)
--- NOTE | 2018-12-08 16:32 | PDOC.PN ---
- Subjective Encounter Start Date: 12/08/18 Encounter Start Time: 16:24 Ms. Leiva was seen today in follow-up of COPD exacerbation. She says she is not feeling that much better. - Objective MAR Reviewed: Yes Vital Signs & Weight: Vital Signs (12 hours) Temp Pulse Resp BP BP Pulse Ox 12/08/18 15:49 98.2 F 86 17 109/57 L 96 12/08/18 14:17 92 16 99 12/08/18 11:00 98.1 F 99 20 113/62 95 12/08/18 09:54 89 16 96 12/08/18 08:00 93 L 12/08/18 07:21 98.9 F 88 20 113/62 93 L 12/08/18 04:26 98.1 F 92 16 135/67 94 L Weight Weight 282 lb 3 oz Additional Labs: Accuchecks 12/08/18 12/08/18 12/08/18 15:54 11:31 04:31 POC Glucose 398 H 396 H 374 H 12/07/18 12/07/18 20:43 16:37 POC Glucose 379 H 300 H Phys Exam - Physical Examination HEENT: PERRLA deacreased breath sounds bilaterally, and faint wheezing Cardiovascular: RRR, no significant murmur, no rub Gastrointestinal: soft, non-tender, no distention, positive bowel sounds Musculoskeletal: no edema, pulses present Dx/Plan (1) COPD exacerbation Code(s): J44.1 - CHRONIC OBSTRUCTIVE PULMONARY DISEASE W (ACUTE) EXACERBATION Status: Acute Comment: (2) Acute on chronic respiratory failure with hypoxia Code(s): J96.21 - ACUTE AND CHRONIC RESPIRATORY FAILURE WITH HYPOXIA Status: Resolved (3) Hypertension Code(s): I10 - ESSENTIAL (PRIMARY) HYPERTENSION Status: Chronic (4) CAD (coronary artery disease) Code(s): I25.10 - ATHSCL HEART DISEASE OF [place] CORONARY ARTERY W/O ANG PCTRS Status: Chronic Qualifiers: (5) DM type 2 (diabetes mellitus, type 2) Status: Chronic (6) Morbid obesity Code(s): E66.01 - MORBID (SEVERE) OBESITY DUE TO EXCESS CALORIES Status: Chronic - Plan * Acute on chronic respiratory failure due to COPD exacerbation- continue Duonebs, and empiric antibiotics * HTN- blood pressure is stable * DM- blood glucose is elevated- likely from steroids- will re-start Lantus insulin, and continue the SSI as well. * Continue DVT and GI Prophylaxis
[2018-12-08] MEDS: Spironolactone 25 MG TAB PO SCH (17:22)
[2018-12-08] MEDS: Silver Sulfadiazine 1% Cream 50 GM JAR TOP SCH ×2 (17:22→21:04)
[2018-12-08] MEDS: Budesonide 0.5 MG/2 ML NEB NEB SCH (19:11)
[2018-12-08] MEDS: Arformoterol 15 MCG/2 ML NEB NEB SCH (19:12)
[2018-12-08] MEDS: Loratadine 10 MG TAB PO SCH (20:59)
[2018-12-08] MEDS ORDERED: Insulin Glargine 50 UNITS in Pre-Filled Syringe 1 EACH SC SCH (21:00)
--- NOTE | 2018-12-08 23:15 | CON ---
DATE OF CONSULTATION: 12/08/2018 Ms. Leiva is a 73-year-old female. She was seen recently in the office and was more short of breath than usual. She was started on prednisone. She followed up with Dr. Smtih who added antibiotics. Her family is going to [place] to the [facility] and she was checked before she went until she was fine to travel. She said she did fine on the trip. It was about 24 hours after she got back, she started feeling short of breath. She has had no fever, chills, or sweats. She has not really had any purulent sputum. PAST MEDICAL HISTORY: 1. Remarkable for obesity. 2. Chronic obstructive pulmonary disease. 3. Chronic hypoxemia requiring home O2. 4. Obstructive sleep apnea. She is claustrophobic and will not tolerate CPAP. 5. History of bladder cancer. 6. History of diabetes. 7. Coronary artery disease. 8. History of reflux. 9. History of lipid disorder. 10. History of cholecystectomy. 11. History of pulmonary nodule. She had a CT done in January 2017 that showed no nodule. 12. History of colon polyp removed by Dr. Balderas in March 19. 13. History of CT scan done again on admission yesterday showing no pulmonary emboli again, coronary artery calcifications, small density in the right posterior lung abutting the pleura. It actually was there back in 2017, but was not mentioned in the final report, reviewing all records. FAMILY HISTORY: Negative for lung disease in early age. SOCIAL HISTORY: She is a former smoker, nonsmoker now, nondrinker, nondrug user. She reports allergies to tetracycline, codeine, latex, statins, quinolones. REVIEW OF SYSTEMS: Ten point review of systems completed, otherwise negative. PHYSICAL EXAMINATION: VITAL SIGNS: She is afebrile, heart rate 86-90, respiratory rate is 19, oximetry is 99% on 2 L, blood pressure 109/57. GENERAL: She is in no distress. Pupils are equal sclerae is anicteric. Extraocular movements are full. NECK: Supple. No lymphadenopathy. LUNGS: Remarkable for diffuse wheezes with a prolonged expiratory phase. She is not using accessory muscles. HEART: Regular rhythm. S1, S2 are normal. ABDOMEN: Soft and nontender. EXTREMITIES: Without clubbing, cyanosis, or edema. NEUROLOGIC: Nonfocal. IMPRESSION: 1. [id number] respiratory failure with hypoxemia. 2. Chronic obstructive pulmonary disease with an exacerbation. 3. Bronchitis, likely viral mediated associated with her travel to the [facility]. 4. Deconditioning. 5. Obesity. 6. Intolerance of CPAP. 7. Smooth pulmonary density is unchanged. 8. We will continue nebulized treatments, steroids. Current medications. I agree with Dr. Nguyen's plans. 9. We probably will stop her Brovana and do more frequent ipratropium and albuterol nebulized treatments. I would be happy to follow along with the other physicians caring for. TIME SPENT: This is a 50-minute consult, with greater than 50% of the time spent on the unit coordinating care. Job ID: [id number] MTDD
[2018-12-09] MEDS: Azithromycin 500 MG in Sodium Chloride 0.9% 250 ML 250 ML IVPB SCH (03:17)
[2018-12-09] MEDS: methylPREDNISolone Sod Succ 40 MG VIAL IVP SCH ×3 (05:37→16:14)
[2018-12-09] MEDS: HumaLOG 300 UNITS/3 ML VIAL SC PRN ×4 (05:37→20:39)
[2018-12-09] MEDS: Arformoterol 15 MCG/2 ML NEB NEB SCH ×2 (07:31→18:09)
[2018-12-09] MEDS: Budesonide 0.5 MG/2 ML NEB NEB SCH ×2 (07:33→18:09)
[2018-12-09] MEDS: Valsartan 80 MG TAB PO SCH (08:18)
[2018-12-09] MEDS: Aspirin 81 mg Enteric Coated Tablet PO SCH (08:18)
[2018-12-09] MEDS: Ezetimibe 10 MG TAB PO SCH (08:18)
[2018-12-09] MEDS: Calcium Carbonate + Vit D 1 TAB PO SCH (08:18)
[2018-12-09] MEDS: Famotidine 20 MG TAB PO SCH ×2 (08:18→20:38)
[2018-12-09] MEDS: Silver Sulfadiazine 1% Cream 50 GM JAR TOP SCH ×2 (08:19→20:38)
[2018-12-09] MEDS: Clopidogrel Bisulfate 75 MG TAB PO SCH (08:19)
[2018-12-09] MEDS: Enoxaparin Sodium 30 MG/0.3 ML SYRINGE SC SCH (08:19)
[2018-12-09] MEDS ORDERED: Insulin Glargine 50 UNITS in Pre-Filled Syringe 1 EACH SC SCH (09:00)
[2018-12-09 10:01] LABS: #Lymphocytes 0.8 thou/uL (1.20-3.40); #Monocytes 0.6 thou/uL (0.11-0.59); #Neutrophils 12.4 thou/uL (1.40-6.50); %Basophils 0.1 % (0.0-1.0); %Eosinophils 0.1 % (0.0-10.0); %Lymphocytes 5.4 % (21.0-51.0); %Monocytes 4.3 % (0.0-10.0); %Neutrophils 90.1 % (42.0-75.0); Hemoglobin 13.3 g/dL (12.0-16.0); Mean Corpuscular HGB CONC 31.9 g/dL (32.0-36.0); Mean Corpuscular Hemoglobin 30.9 pg (27.0-31.0); Mean Corpuscular Volume 96.9 fL (78.0-98.0); Mean Platelet Volume 7.3 fL (7.4-10.4); Platelet Count 284 thou/uL (130-400); RBC Distribution Width 13.1 % (11.5-14.5); Red Blood Cell (RBC) Count 4.28 mill/uL (4.20-5.40); White Blood Cell (WBC) Count 13.8 thou/uL (4.8-10.8)
[2018-12-09 10:19] LABS: Anion Gap 15 mmol/L (10-20); BUN (Urea Nitrogen) 28 mg/dL (9.8-20.1); Calc. Creatinine Clearance 75 mL/min (70-130); Calcium 9.7 mg/dL (7.8-10.44); Carbon Dioxide 26 mmol/L (23-31); Chloride 96 mmol/L (98-107); Estimated GFR-MDRD 38; Glucose 365 mg/dL (83-110); Potassium 5.4 mmol/L (3.5-5.1); Sodium 132 mmol/L (136-145)
[2018-12-09] MEDS: Insulin Glargine 70 UNITS in Pre-Filled Syringe SC SCH ×2 (10:28→20:39)
[2018-12-09] MEDS: Spironolactone 25 MG TAB PO SCH (16:13)
--- NOTE | 2018-12-09 17:33 | PDOC.PN ---
- Subjective Encounter Start Date: 12/09/18 Encounter Start Time: 15:00 Ms. Leiva was seen today in follow-up of COPD exacerbation. She says she does not feel any better today than she did yesterday. She says she is still short of breath and fatigued. - Objective MAR Reviewed: Yes Vital Signs & Weight: Vital Signs (12 hours) Temp Pulse Resp BP Pulse Ox 12/09/18 13:02 91 97 12/09/18 08:00 95 12/09/18 07:59 97.8 F 100 22 H 110/53 L 95 12/09/18 07:31 114 H 20 96 Weight Weight 282 lb 3 oz I&O: 12/08/18 12/09/18 12/10/18 06:59 06:59 06:59 Intake Total 800 Balance 800 Result Diagrams: 12/09/18 09:42 12/09/18 09:42 Additional Labs: Accuchecks 12/09/18 12/09/18 12/09/18 15:59 11:13 05:16 POC Glucose 324 H 316 H 355 H 12/08/18 20:56 POC Glucose 396 H Phys Exam - Physical Examination HEENT: PERRLA + mild expiratory wheeze, and decreased air movement Cardiovascular: RRR, no significant murmur, no rub Gastrointestinal: soft, non-tender, no distention, positive bowel sounds Musculoskeletal: pulses present, edema present + non-pitting edema in the lower extremities Dx/Plan (1) COPD exacerbation Code(s): J44.1 - CHRONIC OBSTRUCTIVE PULMONARY DISEASE W (ACUTE) EXACERBATION Status: Acute Comment: (2) Acute on chronic respiratory failure with hypoxia Code(s): J96.21 - ACUTE AND CHRONIC RESPIRATORY FAILURE WITH HYPOXIA Status: Resolved (3) Hypertension Code(s): I10 - ESSENTIAL (PRIMARY) HYPERTENSION Status: Chronic (4) CAD (coronary artery disease) Code(s): I25.10 - ATHSCL HEART DISEASE OF [place] CORONARY ARTERY W/O ANG PCTRS Status: Chronic Qualifiers: (5) DM type 2 (diabetes mellitus, type 2) Status: Chronic (6) Morbid obesity Code(s): E66.01 - MORBID (SEVERE) OBESITY DUE TO EXCESS CALORIES Status: Chronic - Plan * Acute on chronic respiratory failure due to COPD- continue steroids, duonebs, and Azithromycin * HTN- blood pressure is stable * DM- blood glucose is elevated- will begin aurelia sheba steroids * CAD- stable * Hopefully home soon..
[2018-12-09] MEDS: Loratadine 10 MG TAB PO SCH (20:38)
--- NOTE | 2018-12-09 20:53 | PRG ---
DATE OF SERVICE: 12/09/2018 SUBJECTIVE: Ines Ahumada says she does not feel much better than yesterday. OBJECTIVE: VITAL SIGNS: She is afebrile. Heart rate is 95, respiratory rate is 18, oximetry is 99% on 2.5L, blood pressure 110/53. LUNGS: Remarkable for diffuse wheezes. She is not using any accessory muscles. HEART: Regular rhythm. S1, S2 are normal. ABDOMEN: Soft and nontender. EXTREMITIES: Without edema. LABORATORY DATA: White count 13.8, hemoglobin 13.3, platelets 284. Sodium 132, potassium 5.4, chloride 96, bicarb 26, BUN 28, creatinine 1.35. IMPRESSION: 1. Chronic obstructive pulmonary disease exacerbation. 2. Obesity. 3. Claustrophobia with treatment of sleep apnea, so she does not wear continuous positive airway pressure. 4. Chronic hypoxemia requiring home O2. 5. History of bladder cancer. 6. Diabetes. 7. Coronary artery disease. 8. History of pulmonary nodule showing serial radiographs with no change. CT this admission shows no change to a small pleural density. 9. History of colon polyp. 10. Former heavy smoker. 11. Tetracycline, codeine, statin, latex, and quinolone intolerance. We will continue to follow. She should gradually be transitioned into p.o. medications in the next 24 to 48 hours. 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 I would not think she would be ready for at least another couple of days. Job ID: [id number]
[2018-12-10] MEDS: Arformoterol 15 MCG/2 ML NEB NEB SCH ×2 (07:22→18:21)
[2018-12-10] MEDS: Budesonide 0.5 MG/2 ML NEB NEB SCH ×2 (07:25→18:21)
--- NOTE | 2018-12-10 07:47 | HP ---
PRIMARY CARE PHYSICIAN: Cornelia Smith DO CODE STATUS: Full code. TIME OF EVALUATION: 8:20 p.m. CHIEF COMPLAINT: Dyspnea. HISTORY OF PRESENT ILLNESS: A 73-year-old female patient with past medical history of COPD, CHF, hypertension, hyperlipidemia, came to the hospital after having severe gradually worsening shortness of breath associated with some cough and sputum production. No clear triggers, no alleviating factors. The patient had been with the PCP and had been started on Levaquin. The patient follows with Dr. Trevizo as an outpatient, who had placed her on steroids. REVIEW OF SYSTEMS: CONSTITUTIONAL: No fever, chills, or generalized weakness. RESPIRATORY: The patient had cough with sputum production, shortness of breath. CARDIOVASCULAR: No chest pain or palpitation. GASTROINTESTINAL: No nausea, no vomiting, diarrhea or abdominal pain. GLASS BREAKER: No dizziness, headache, or feeling lightheaded. GENITOURINARY: No burning on urination. EXTREMITIES: No leg swelling. All other systems were reviewed and negative except for the findings mentioned above. PAST MEDICAL HISTORY: Diabetes, bladder cancer, hyperlipidemia, hypertension, diabetes type 2, CHF, COPD, high cholesterol. PAST SURGICAL HISTORY: The patient has a history of cholecystectomy, tubal ligation, and bladder surgery x3. PSYCHIATRIC HISTORY: No previous psych history. FAMILY HISTORY:Reviewed and no contributory for current presentation. SOCIAL HISTORY: The patient drinks socially. No drug use. Former smoker, quit more than 10 years ago. Lives at home with family. KNOWN ALLERGIES: Codeine sulfate, latex gloves, statins, tetracyclines. REPORTED MEDICATIONS: 1. Dexilant. 2. Aspirin. 3. Spironolactone. 4. Lasix. 5. Zetia. 6. Ranitidine. 7. Diovan. 8. Nitrostat. 9. Lantus. 10. Fish oil. 11. Nasonex. 12. Potassium chloride. 13. DuoNeb. 14. ProAir. 15. Prednisone. 16. Levocetirizine. 17. Clopidogrel. 18. Metolazone. 19. [place]. 20. Lantus. 21. Brovana. PHYSICAL EXAMINATION: VITAL SIGNS: On presentation, blood pressure 131/63 with heart rate 109, respiratory rate was 22, oxygen saturation was 97% on 2 L of oxygen. GENERAL: The patient is alert, oriented, not in acute distress. HEENT: Eyes, normal conjunctivae. Moist oral mucosa. Anicteric. No JVD. RESPIRATORY: Bilateral air entry is decreased. The patient has no rales. Bilateral wheezes. Symmetric expansion is decreased. CARDIOVASCULAR: Normal rate, regular rhythm. No murmurs. No gallop. No edema. ABDOMEN: Soft. Normal bowel sounds. MUSCULOSKELETAL: Baseline range of motion and strength. No tenderness. SKIN: Warm, intact. No pallor. No rash. No redness. Peripheral pulses are present. Capillary refill seems to intact. NEUROLOGIC: No evidence of any new focal weakness. Cranial nerves seems to be intact. PSYCHIATRIC: The patient has good mood. No anxiety. Optimal judgment. IMAGING STUDIES: EKG was reviewed. The patient has normal sinus rhythm with a rate of 100. Chest CT angio was done. The patient has no evidence of pulmonary embolism or any acute cardiopulmonary process. 1. Coronary artery calcifications. 2. A 1.5 cm smooth mass abutting the pleura in the right posterior costophrenic angle. No change in size or shape since 2017 scan. LABORATORY DATA: The labs were reviewed. The patient has negative troponin, with hematology, white count 8.2, hemoglobin 13.6, MCV 96.2, platelet count 279. Chemistry was done, the patient has a sodium 136, potassium 3.8, chloride 93, carbon dioxide 33, anion gap 14, BUN 24, GFR 66, creatinine 1.21. These were all the same in the previous admissions. Glucose 229, calcium 9.6. LFTs were negative. Beta-natriuretic peptide was normal. Urine was done and was normal. ASSESSMENT AND PLAN: The patient will be placed in the hospital with the following medical problems: 1. Chronic obstructive pulmonary disease exacerbation. The patient has been started on nebs, Solu-Medrol, and antibiotics. 2. Uncontrolled diabetes. Reconcile home medications. Start sliding scale for optimal control. 3. Deep venous thrombosis prophylaxis. 4. Controlled hypertension. Reconcile home medications. Adjust as needed. 5. Hyperlipidemia. Low-cholesterol diet is advised, reconcile home medications. 6. DVT prophylaxis Job ID: [id number] [facility]
[2018-12-10] MEDS: Ezetimibe 10 MG TAB PO SCH (08:15)
[2018-12-10] MEDS: Azithromycin 250 MG TAB PO SCH (08:16)
[2018-12-10] MEDS: Aspirin 81 mg Enteric Coated Tablet PO SCH (08:16)
[2018-12-10] MEDS: Clopidogrel Bisulfate 75 MG TAB PO SCH (08:16)
[2018-12-10] MEDS: predniSONE 20 MG TAB PO SCH (08:16)
[2018-12-10] MEDS: Calcium Carbonate + Vit D 1 TAB PO SCH (08:16)
[2018-12-10] MEDS: Enoxaparin Sodium 30 MG/0.3 ML SYRINGE SC SCH (08:17)
[2018-12-10] MEDS: Silver Sulfadiazine 1% Cream 50 GM JAR TOP SCH ×2 (08:17→20:44)
[2018-12-10] MEDS: Famotidine 20 MG TAB PO SCH ×2 (08:17→20:41)
[2018-12-10] MEDS: Valsartan 80 MG TAB PO SCH (08:18)
[2018-12-10] MEDS: Insulin Glargine 70 UNITS in Pre-Filled Syringe SC SCH ×2 (08:22→20:43)
--- NOTE | 2018-12-10 09:41 | PRG ---
DATE OF SERVICE: 12/10/2018 SUBJECTIVE: This morning, she is complaining of difficulty breathing, coughing, wheezing, and will cough up any sputum. She is on twice a day Brovana, budesonide, and Plavix. Neb treatment, supportive care. Steroids. OBJECTIVE: VITAL SIGNS: Blood pressure 130/80, saturations 96%. CHEST: Decreased breath sounds. No wheezing. CARDIAC: Normal S1 and S2. No gallop. ABDOMEN: No masses. ASSESSMENT: End-stage chronic obstructive pulmonary disease, morbid obesity. PLAN: Continue steroids, neb treatment. We will follow. Job ID: [id number]
[2018-12-10] MEDS ORDERED: Oxymetazoline HCl 0.05% ( 15 ML ) NASAL PRN (12:51)
--- NOTE | 2018-12-10 12:54 | PDOC.PN ---
- Subjective Encounter Start Date: 12/10/18 Encounter Start Time: 12:52 was seen today in follow-up of COPD exacerbation. She says she does not feel much better. she says she has congestion in her chest which seems to get stuck. She continues to have some dyspnea. - Objective MAR Reviewed: Yes Vital Signs & Weight: Vital Signs (12 hours) Temp Pulse Resp BP Pulse Ox 12/10/18 11:00 98.1 F 84 18 116/66 93 L 12/10/18 08:00 97.9 F 75 20 97/50 L 96 12/10/18 07:22 85 16 96 Weight Weight 282 lb 3 oz I&O: 12/09/18 12/10/18 12/11/18 06:59 06:59 06:59 Intake Total 1800 240 Balance 1800 240 Result Diagrams: 12/09/18 09:42 12/09/18 09:42 Additional Labs: Accuchecks 12/10/18 12/10/18 12/09/18 11:29 04:41 20:34 POC Glucose 152 H 174 H 301 H 12/09/18 15:59 POC Glucose 324 H Phys Exam - Physical Examination HEENT: PERRLA Respiratory: wheezing present better airmovement today Cardiovascular: RRR, no significant murmur, no rub Gastrointestinal: soft, non-tender, no distention, positive bowel sounds Musculoskeletal: pulses present, edema present Dx/Plan (1) COPD exacerbation Code(s): J44.1 - CHRONIC OBSTRUCTIVE PULMONARY DISEASE W (ACUTE) EXACERBATION Status: Acute Comment: (2) Acute on chronic respiratory failure with hypoxia Code(s): J96.21 - ACUTE AND CHRONIC RESPIRATORY FAILURE WITH HYPOXIA Status: Resolved (3) Hypertension Code(s): I10 - ESSENTIAL (PRIMARY) HYPERTENSION Status: Chronic (4) CAD (coronary artery disease) Code(s): I25.10 - ATHSCL HEART DISEASE OF [place] CORONARY ARTERY W/O ANG PCTRS Status: Chronic Qualifiers: (5) DM type 2 (diabetes mellitus, type 2) Status: Chronic (6) Morbid obesity Code(s): E66.01 - MORBID (SEVERE) OBESITY DUE TO EXCESS CALORIES Status: Chronic - Plan * Acute on chronic respiratory failure due to COPD exacerbation- continue as per PCCM * Continue Duonebs, steroids, and empiric antibiotics * Will add Mucinex * HTN- blood pressure is stable. * DM- blood glucose is beginning to trend down * CAD- stable
[2018-12-10] MEDS: Spironolactone 25 MG TAB PO SCH (16:48)
[2018-12-10] MEDS: HumaLOG 300 UNITS/3 ML VIAL SC PRN (16:49)
[2018-12-10] MEDS: Loratadine 10 MG TAB PO SCH (20:41)
[2018-12-10] MEDS: guaiFENesin ER 600 MG TAB PO SCH (20:43)
[2018-12-10] MEDS: Oxymetazoline HCl 0.05% (30 ML BOT) NS PRN (21:13)
[2018-12-11] MEDS: Arformoterol 15 MCG/2 ML NEB NEB SCH ×2 (07:16→18:56)
[2018-12-11] MEDS: Budesonide 0.5 MG/2 ML NEB NEB SCH ×2 (07:18→18:56)
[2018-12-11] MEDS: guaiFENesin ER 600 MG TAB PO SCH ×2 (09:02→20:02)
[2018-12-11] MEDS: Azithromycin 250 MG TAB PO SCH (09:02)
[2018-12-11] MEDS: Calcium Carbonate + Vit D 1 TAB PO SCH (09:02)
[2018-12-11] MEDS: Valsartan 80 MG TAB PO SCH (09:02)
[2018-12-11] MEDS: Ezetimibe 10 MG TAB PO SCH (09:02)
[2018-12-11] MEDS: predniSONE 20 MG TAB PO SCH (09:02)
[2018-12-11] MEDS: Famotidine 20 MG TAB PO SCH ×2 (09:03→20:02)
[2018-12-11] MEDS: Clopidogrel Bisulfate 75 MG TAB PO SCH (09:03)
[2018-12-11] MEDS: Enoxaparin Sodium 30 MG/0.3 ML SYRINGE SC SCH (09:03)
[2018-12-11] MEDS: Aspirin 81 mg Enteric Coated Tablet PO SCH (09:03)
[2018-12-11] MEDS: Insulin Glargine 70 UNITS in Pre-Filled Syringe SC SCH (09:07)
--- NOTE | 2018-12-11 09:12 | PRG ---
DATE OF SERVICE: 12/11/2018 SUBJECTIVE: Ines Leiva is a 73-year-old female, still has difficulty breathing, coughing, wheezing. OBJECTIVE: VITAL SIGNS: Saturations are 97% on 2 L, respiratory rate 20, temperature 97, pulse 93, blood pressure 149/67. CHEST: Prolonged expiration. Diffuse wheezing. CARDIAC: Sinus tach. ABDOMEN: No masses. IMPRESSION: End-stage chronic obstructive pulmonary disease, morbid obesity, sleep apnea, poor compliance. PLAN: Continue steroids, neb treatment. Once wheezing improved, she can probably be discharge. Continue PT, supportive care. Job ID: [id number]
[2018-12-11] MEDS: Silver Sulfadiazine 1% Cream 50 GM JAR TOP SCH ×2 (10:39→20:08)
--- NOTE | 2018-12-11 14:39 | PDOC.PN ---
- Subjective Encounter Start Date: 12/11/18 Encounter Start Time: 14:38 Ms. Leiva was seen today in follow-up of COPD. She says she is not feeling much better today. She continues to cough and be short of breath, with phlem which sticks in her throat. - Objective MAR Reviewed: Yes Vital Signs & Weight: Vital Signs (12 hours) Temp Pulse Resp BP Pulse Ox 12/11/18 13:50 98 18 97 12/11/18 08:46 97 12/11/18 07:46 97.7 F 93 20 149/67 H 97 12/11/18 07:18 91 18 98 12/11/18 07:17 91 18 98 12/11/18 07:16 91 18 98 Weight Weight 282 lb 3 oz I&O: 12/10/18 12/11/18 12/12/18 06:59 06:59 06:59 Intake Total 1800 5480 Balance 1800 5480 Result Diagrams: 12/09/18 09:42 12/09/18 09:42 Additional Labs: Accuchecks 12/11/18 12/11/18 12/11/18 12:13 04:43 03:58 POC Glucose 100 103 51 L* 12/10/18 12/10/18 20:44 16:29 POC Glucose 128 H 207 H Phys Exam - Physical Examination HEENT: PERRLA Respiratory: no rales, no rhonchi, wheezing present + bilateral tight wheezing Cardiovascular: RRR, no significant murmur, no rub Gastrointestinal: soft, non-tender, no distention, positive bowel sounds Musculoskeletal: pulses present, edema present Neurological: non-focal, moves all 4 limbs Dx/Plan (1) COPD exacerbation Code(s): J44.1 - CHRONIC OBSTRUCTIVE PULMONARY DISEASE W (ACUTE) EXACERBATION Status: Acute Comment: (2) Acute on chronic respiratory failure with hypoxia Code(s): J96.21 - ACUTE AND CHRONIC RESPIRATORY FAILURE WITH HYPOXIA Status: Resolved (3) Hypertension Code(s): I10 - ESSENTIAL (PRIMARY) HYPERTENSION Status: Chronic (4) CAD (coronary artery disease) Code(s): I25.10 - ATHSCL HEART DISEASE OF [place] CORONARY ARTERY W/O ANG PCTRS Status: Chronic Qualifiers: (5) DM type 2 (diabetes mellitus, type 2) Status: Chronic (6) Morbid obesity Code(s): E66.01 - MORBID (SEVERE) OBESITY DUE TO EXCESS CALORIES Status: Chronic - Plan * Acute on chronic respiratory failure due to COPD exacerbation- continue the current therapy * Hopefully her symptoms will improve over the next few days * DM- blood glucose was a bit low- will lower her dose of scheduled insulin * Home when cleared by Pulmonary * .
[2018-12-11] MEDS: Spironolactone 25 MG TAB PO SCH (16:12)
[2018-12-11] MEDS: HumaLOG 300 UNITS/3 ML VIAL SC PRN (17:28)
[2018-12-11] MEDS: Oxymetazoline HCl 0.05% (30 ML BOT) NS PRN (20:02)
[2018-12-11] MEDS: Loratadine 10 MG TAB PO SCH (20:02)
[2018-12-11] MEDS: Insulin Glargine 60 UNITS in Pre-Filled Syringe 1 EACH SC SCH (20:02)
[2018-12-12] MEDS: Arformoterol 15 MCG/2 ML NEB NEB SCH ×2 (06:19→18:07)
[2018-12-12] MEDS: Budesonide 0.5 MG/2 ML NEB NEB SCH ×2 (06:21→18:07)
[2018-12-12] MEDS: Azithromycin 250 MG TAB PO SCH (08:54)
[2018-12-12] MEDS: Valsartan 80 MG TAB PO SCH (08:54)
[2018-12-12] MEDS: Famotidine 20 MG TAB PO SCH ×2 (08:55→20:32)
[2018-12-12] MEDS: Enoxaparin Sodium 30 MG/0.3 ML SYRINGE SC SCH (08:55)
[2018-12-12] MEDS: predniSONE 20 MG TAB PO SCH (08:55)
[2018-12-12] MEDS: guaiFENesin ER 600 MG TAB PO SCH ×2 (08:55→20:32)
[2018-12-12] MEDS: Calcium Carbonate + Vit D 1 TAB PO SCH (08:55)
[2018-12-12] MEDS: Clopidogrel Bisulfate 75 MG TAB PO SCH (08:55)
[2018-12-12] MEDS: Ezetimibe 10 MG TAB PO SCH (08:55)
[2018-12-12] MEDS: Insulin Glargine 60 UNITS in Pre-Filled Syringe 1 EACH SC SCH ×2 (08:56→20:33)
[2018-12-12] MEDS: Silver Sulfadiazine 1% Cream 50 GM JAR TOP SCH ×2 (09:00→21:57)
[2018-12-12] MEDS: Aspirin 81 mg Enteric Coated Tablet PO SCH (09:07)
--- NOTE | 2018-12-12 09:52 | PRG ---
DATE OF SERVICE: 12/12/2018 SUBJECTIVE: This morning, the patient says she is better. She is less short of breath. Sputums are clear. OBJECTIVE: VITAL SIGNS: Blood pressure is 144/76, saturations are 99% on 2 L, respirations 18, pulse 85, temperature is 97. CHEST: Minimal wheezing. CARDIAC: Normal S1 and S2. No gallop. ABDOMEN: No masses. ASSESSMENT: Chronic obstructive pulmonary disease, morbid obesity, probable sleep apnea. Pulmonary hernández, she is stable enough to be discharged home in the next 24 to 48 hours. She needs to taper her steroids over several weeks. She otherwise has adequate medications at home. Follow up with Dr. Trevizo in 2 weeks or so. Job ID: [id number]
[2018-12-12] MEDS: HumaLOG 300 UNITS/3 ML VIAL SC PRN ×3 (12:32→20:37)
[2018-12-12] MEDS: Spironolactone 25 MG TAB PO SCH (16:23)
--- NOTE | 2018-12-12 18:09 | PDOC.PN ---
- Subjective Encounter Start Date: 12/12/18 Encounter Start Time: 18:00 Subjective: f/u for COPD exacerbation on Prednisone, Zithromax, Brovana -: and Pulmicort. Still wheezes and SOB. - Objective MAR Reviewed: Yes Vital Signs & Weight: Vital Signs (12 hours) Temp Pulse Resp BP Pulse Ox 12/12/18 13:51 100 16 98 12/12/18 08:53 99 12/12/18 07:45 97.9 F 85 18 144/76 H 99 12/12/18 06:22 87 98 12/12/18 06:21 87 18 98 12/12/18 06:19 87 18 98 Weight Weight 282 lb 3 oz I&O: 12/11/18 12/12/18 12/13/18 06:59 06:59 06:59 Intake Total 5480 2880 1500 Balance 5480 2880 1500 Result Diagrams: 12/09/18 09:42 12/09/18 09:42 Additional Labs: Accuchecks 12/12/18 12/12/18 12/12/18 16:21 11:05 05:37 POC Glucose 234 H 167 H 134 H 12/11/18 19:44 POC Glucose 261 H Phys Exam - Physical Examination Constitutional: NAD HEENT: PERRLA, sclera anicteric, oral pharynx no lesions Neck: no nodes, no JVD, supple, full ROM exp wheezing bilat, prolonged exp phase, diminished in bases S1, S2 Cardiovascular: RRR, no significant murmur, no rub, gallop Gastrointestinal: soft, non-tender, no distention, positive bowel sounds Musculoskeletal: pulses present, edema present Neurological: normal sensation, moves all 4 limbs Psychiatric: A&O x 3 Skin: normal turgor, cap refill <2 seconds Dx/Plan (1) Acute on chronic respiratory failure with hypoxia Code(s): J96.21 - ACUTE AND CHRONIC RESPIRATORY FAILURE WITH HYPOXIA Status: Acute Comment: Continue aggressive pulmonary support, continue Duonebs, Brovana, Pulmicort (2) COPD exacerbation Code(s): J44.1 - CHRONIC OBSTRUCTIVE PULMONARY DISEASE W (ACUTE) EXACERBATION Status: Acute Comment: Continue Prednisone, Brovana, Pulmicort, add Singulair , O2 supplementation (3) DM type 2 (diabetes mellitus, type 2) Status: Chronic Comment: ISS, continue Lantus 60u BID, ADA (4) Morbid obesity Code(s): E66.01 - MORBID (SEVERE) OBESITY DUE TO EXCESS CALORIES Status: Chronic Comment: Weight loss options, low-fat diet - Plan continue antibiotics, director social service, respiratory therapy, out of bed/ambulate , DVT proph w/SCDs Stable currently -: Add Singulair 10mg daily -: Continue Duonebs, Brovana, Pulmicort -: Continue Prednisone -: ? Home in 24-48h * .
[2018-12-12] MEDS ORDERED: Montelukast Sodium 10 mg Tablet PO SCH (19:00)
[2018-12-12] MEDS: Loratadine 10 MG TAB PO SCH (20:32)
[2018-12-13] MEDS: Arformoterol 15 MCG/2 ML NEB NEB SCH (06:25)
[2018-12-13] MEDS: Budesonide 0.5 MG/2 ML NEB NEB SCH (06:28)
[2018-12-13 08:30] VITALS: BP 132/56; TEMP 97.5
[2018-12-13] MEDS: Ezetimibe 10 MG TAB PO SCH (08:33)
[2018-12-13] MEDS: Calcium Carbonate + Vit D 1 TAB PO SCH (08:33)
[2018-12-13] MEDS: Aspirin 81 mg Enteric Coated Tablet PO SCH (08:33)
[2018-12-13] MEDS: Famotidine 20 MG TAB PO SCH (08:33)
[2018-12-13] MEDS: guaiFENesin ER 600 MG TAB PO SCH (08:33)
[2018-12-13] MEDS: Azithromycin 250 MG TAB PO SCH (08:33)
[2018-12-13] MEDS: Clopidogrel Bisulfate 75 MG TAB PO SCH (08:34)
[2018-12-13] MEDS: Valsartan 80 MG TAB PO SCH (08:34)
[2018-12-13] MEDS: Insulin Glargine 60 UNITS in Pre-Filled Syringe 1 EACH SC SCH (08:36)
[2018-12-13] MEDS: Enoxaparin Sodium 30 MG/0.3 ML SYRINGE SC SCH (08:38)
[2018-12-13] MEDS: predniSONE 20 MG TAB PO SCH (08:39)
[2018-12-13] MEDS: Silver Sulfadiazine 1% Cream 50 GM JAR TOP SCH (08:39)
--- NOTE | 2018-12-13 09:56 | PRG ---
DATE OF SERVICE: 12/13/2018 SUBJECTIVE: This morning, she is awake, alert, and responsive. She is better, still short of breath. OBJECTIVE: VITAL SIGNS: Saturations are 92% on 2 L, respirations 18, pulse 96, temperature 97, blood pressure 132/56. CHEST: Occasional wheeze. CARDIAC: Normal S1 and S2. No gallops. ABDOMEN: No masses. IMPRESSION: Chronic obstructive pulmonary disease exacerbation, improved. PLAN: She will be discharged home. Tapering dose of prednisone. Follow up with Dr. Trevizo. Job ID: [id number]
[2018-12-13] MEDS ORDERED: Montelukast Sodium 10 mg Tablet PO SCH (21:00)
--- NOTE | 2018-12-13 22:05 | DIS ---
DATE OF ADMISSION: 12/07/2018 DATE OF DISCHARGE: 12/13/2018 DISCHARGE DIAGNOSES: 1. Acute on chronic hypoxic respiratory failure secondary to #2. 2. Chronic obstructive pulmonary disease exacerbation, improved. 3. Diabetes mellitus type 2, insulin requiring. 4. Morbid obesity. 5. Hypertension. CONSULTATIONS: Dr. Trevizo and Dr. Hoyt with Pulmonology Service. PERTINENT LAB AND X-RAY FINDINGS: Portable chest x-ray dated 12/07/2018 showed no acute cardiopulmonary process. CT angiogram of the chest dated 12/07/2018 showed no evidence for pulmonary embolus. HOSPITAL COURSE: The patient was admitted to the medical floor after presenting with increased shortness of breath in the context of known chronic obstructive pulmonary disease and chronic hypoxic respiratory failure. The patient was placed on IV Solu-Medrol in addition to bronchodilator therapy with DuoNeb and Brovana including antibiotic therapy. The patient was evaluated by Pulmonology Service with recommendations to continue general pulmonary supportive management in conjunction with oxygen supplementation. The patient clinically stabilized in approximately 72 hours, maintaining O2 saturations in the mid 90% range on 2 L/minute by nasal cannula. The patient transitioned to oral prednisone and continued on antibiotic therapy orally. The patient did clinically stabilize with general pulmonary supportive management, tolerated regular oral intake and ambulated without assistance or difficulty. I have examined the patient at the time of discharge and discussed followup instructions. The patient verbalizes understanding and agreement ready for discharge on 12/13/2018. DISCHARGE MEDICATIONS: 1. Levaquin 500 mg 1 tablet p.o. daily x7 days. 2. Singulair 10 mg p.o. at bedtime. 3. Prednisone 20 mg 2 tablets p.o. daily x5 days, followed by 1 tab p.o. daily x5 days, followed by half a tab p.o. daily x5 days. 4. ProAir HFA 2 puffs inhaled q.4 hours p.r.n. 5. Enteric-coated aspirin 81 mg p.o. daily. 6. Brovana 15 mcg nebulized b.i.d. 7. Pulmicort nebulizer solution 0.25 mg nebulized b.i.d. 8. Calcium carbonate with vitamin D 1500 mg p.o. daily. 9. Plavix 75 mg p.o. daily. 10. Dexilant 30 mg p.o. daily. 11. Glargine insulin 74 units subcutaneously q.a.m. and 70 units subcutaneously at bedtime. 12. Novolin R insulin sliding scale. 13. DuoNeb 3 mL nebulized q.i.d. p.r.n. 14. Levocetirizine 5 mg p.o. at bedtime. 15. Losartan 25 mg p.o. daily. 16. Nasonex 2 sprays in each naris daily p.r.n. 17. Nitroglycerin 0.4 mg sublingually q.5 minutes p.r.n. chest pain. 18. Potassium chloride 40 mEq p.o. daily. 19. Ranitidine 150 mg p.o. b.i.d. 20. Spironolactone 50 mg p.o. at bedtime. 21. Torsemide 60 mg p.o. daily. 22. Levaquin 500 mg p.o. daily x7 days. FOLLOWUP: The patient will follow up with her primary care provider, Dr. Cornelia Smith, within 7 days of discharge. The patient will follow up with Dr. Luis Daniel Trevizo within 2 weeks of discharge. CONDITION ON DISCHARGE: Fair. ACTIVITY: Ad-nya. DIET: ADA and heart healthy. CODE STATUS: Full. DISPOSITION: Home, 12/13/2018. TIME SPENT: Total time preparing and coordinating discharge, 32 minutes. Job ID: [id number]
--- NOTE | 2018-12-15 15:51 | EKG ---
Test Reason : Blood Pressure : / mmHG Vent. Rate : 100 BPM Atrial Rate : 100 BPM P-R Int : 156 ms QRS Dur : 100 ms QT Int : 374 ms P-R-T Axes : 067 -58 033 degrees QTc Int : 482 ms Normal sinus rhythm Left axis deviation Abnormal ECG No ST elevation/[place] Confirmed by MALACHI PAINTER M.D. ([id number]), digital editor MIKHAIL CALDERÓN ([id number]) on 12/15/2018 3:51:31 PM Referred By: Confirmed By:MALACHI PAINTER M.D.
== END 2018-12-13 12:10 | disposition home or self-care (01) | DRG 189 ==
LOC: ERS 14:42 → T4-B 18:48
PROVIDERS: ADMIT Internal Medicine; ATTEND Internal Medicine
DX: J96.21 Acute and chronic respiratory failure with hypoxia (principal); J44.1 Chronic obstructive pulmonary disease with (acute) exacerbation; Z68.41 Body mass index [BMI] 40.0-44.9, adult; I11.0 Hypertensive heart disease with heart failure; E11.9 Type 2 diabetes mellitus without complications; I25.10 Atherosclerotic heart disease of native coronary artery without angina pectoris; E78.00 Pure hypercholesterolemia, unspecified; G47.30 Sleep apnea, unspecified; E66.01 Morbid (severe) obesity due to excess calories; I50.9 Heart failure, unspecified; F40.240 Claustrophobia; Z90.49 Acquired absence of other specified parts of digestive tract; Z98.51 Tubal ligation status; Z85.51 Personal history of malignant neoplasm of bladder; Z87.891 Personal history of nicotine dependence; Z88.5 Allergy status to narcotic agent; Z91.040 Latex allergy status; Z88.1 Allergy status to other antibiotic agents; Z79.82 Long term (current) use of aspirin; Z79.899 Other long term (current) drug therapy; Z79.52 Long term (current) use of systemic steroids; Z79.4 Long term (current) use of insulin
CPT/HCPCS: 36415; 36416; 80048; 85025; 93005; 94640; 94644; 94760; 96360; J0456; J1650; J1825; J2920; J7050; J7512; J7611; J7620; J7626

== ENCOUNTER 2019-02-27 12:55 | Outpatient (CLI) | payer MEDICARE, MEDICAID ==
--- NOTE | 2019-02-27 14:34 | RAD ---
PA AND LATERAL CHEST: 02/27/19 HISTORY: Dyspnea. COMPARISON: 05/29/18 exam. Heart size is enlarged. There are atherosclerotic changes of the aorta. There are chronic lung change s seen. There are arthritic changes of the spine. IMPRESSION: Cardiomegaly with chronic appearing lung change. Stable chest. POS: [facility]
== END 2019-02-27 12:56 | disposition home or self-care (01) ==
LOC: RAD 12:55
PROVIDERS: ATTEND Internal Medicine Critical Care Medicine
DX: R06.00 Dyspnea, unspecified (principal); I51.7 Cardiomegaly
CPT/HCPCS: 71046

== ENCOUNTER 2020-12-09 11:21 | Outpatient (CLI) | payer MEDICARE, MEDICAID | END 2020-12-09 11:22 | disposition home or self-care (01) | LOC: BICRAD 11:21 | PROVIDERS: ATTEND Internal Medicine Critical Care Medicine | DX: R06.00 Dyspnea, unspecified (principal); J98.4 Other disorders of lung | CPT/HCPCS: 71046 ==

== ENCOUNTER 2021-09-06 10:08 | Outpatient (CLI) | payer MEDICARE, MEDICAID ==
[2021-09-06 12:05] LABS: Hemoglobin 14.7 g/dL (12.0-15.5); Mean Corpuscular HGB CONC 32.3 g/dL (32.0-36.0); Mean Corpuscular Hemoglobin 29.5 pg (27.0-33.0); Mean Corpuscular Volume 91.4 fl (81.6-98.3); Mean Platelet Volume 9.8 fl (7.4-10.4); Platelet Count 327 10x3/uL (150-450); RBC Distribution Width 13.3 % (11.5-14.5); Red Blood Cell (RBC) Count 4.98 10x6/uL (3.90-5.03); White Blood Cell (WBC) Count 12.4 10x3/uL (3.5-10.5)
[2021-09-06 12:22] LABS: Prothrombin Time 11.3 sec (9.5-12.1)
[2021-09-06 13:12] LABS: Anion Gap 22 mmol/L (10-20); BUN (Urea Nitrogen) 34 mg/dL (9.8-20.1); Calc. Creatinine Clearance 0 mL/min (70-130); Calcium 10.2 mg/dL (7.8-10.44); Carbon Dioxide 37 mmol/L (23-31); Chloride 84 mmol/L (98-107); Glucose 119 mg/dL (83-110); Potassium 3.2 mmol/L (3.5-5.1); Sodium 140 mmol/L (136-145)
[2021-09-07 00:06] LABS: SARS-CoV-2 PCR by NAA Not Detected (NotDetected)
== END 2021-09-06 10:09 | disposition home or self-care (01) ==
LOC: LABBT 10:08
PROVIDERS: ATTEND Internal Medicine Cardiovascular Disease
DX: Z01.812 Encounter for preprocedural laboratory examination (principal); I48.3 Typical atrial flutter; Z20.822 Contact with and (suspected) exposure to COVID-19
CPT/HCPCS: 80048; 85027; 85610; U0003; U0005

== ENCOUNTER 2021-09-09 06:04 | Day surgery (SDC) | payer MEDICARE, MEDICAID ==
[2021-09-03 13:04] VITALS: BMI 40.6
[2021-09-09] MEDS ORDERED: Heparin 25,000 units/D5W 0 ML ONE (06:50)
[2021-09-09] MEDS ORDERED: Heparin 10,000 UNITS/ 10 ML VIAL ONE (06:50)
[2021-09-09] MEDS ORDERED: Protamine Sulfate 50 MG/5 ML VIAL ONE (06:50)
[2021-09-09] MEDS ORDERED: Midazolam HCl 2 mg/2 ml Vial ONE (07:38)
[2021-09-09] MEDS ORDERED: Fentanyl 100 MCG/2 ML VIAL ONE ×2 (07:38→10:56)
[2021-09-09] MEDS ORDERED: Rocuronium Bromide 10 MG/ML (10ML VIAL) ONE (08:02)
[2021-09-09] MEDS ORDERED: Dexamethasone 20 MG/5 ML VIAL ONE (08:02)
[2021-09-09] MEDS ORDERED: PROPOFOL 200 MG/20 ML VIAL ONE (08:02)
[2021-09-09] MEDS ORDERED: Succinylcholine 200 MG/10 ml SYRINGE FS ONE (08:02)
[2021-09-09] MEDS ORDERED: Ondansetron PF 4 MG/2 ML Vial ONE (08:02)
== END 2021-09-09 14:39 | disposition home or self-care (01) ==
LOC: SDC 06:04
PROVIDERS: ATTEND Internal Medicine Cardiovascular Disease
PROC: B246ZZ4 Ultrasonography of Right and Left Heart, Transesophageal (ICD-10-PCS; principal; 2021-09-09)
PROC: 02583ZZ Destruction of Conduction Mechanism, Percutaneous Approach (ICD-10-PCS; 2021-09-09)
PROC: 02K83ZZ Map Conduction Mechanism, Percutaneous Approach (ICD-10-PCS; 2021-09-09)
PROC: 4A023FZ Measurement of Cardiac Rhythm, Percutaneous Approach (ICD-10-PCS; 2021-09-09)
DX: I48.3 Typical atrial flutter (principal); I51.7 Cardiomegaly; Z79.01 Long term (current) use of anticoagulants; Z79.02 Long term (current) use of antithrombotics/antiplatelets; Z79.4 Long term (current) use of insulin; Z79.899 Other long term (current) drug therapy; Z88.1 Allergy status to other antibiotic agents; Z88.5 Allergy status to narcotic agent; Z88.8 Allergy status to other drugs, medicaments and biological substances; Z91.040 Latex allergy status; Z91.048 Other nonmedicinal substance allergy status
CPT/HCPCS: 93005; 93312; 93613; 93653; C1731; C1894; C2630; J1100; J1644; J2250; J2405; J2704; J2720; J3010

== ENCOUNTER 2022-04-15 12:02 | Observation (INO) | payer MEDICARE, MEDICAID ==
[2022-04-15] MEDS ORDERED: Diazepam 5 MG TAB ONE (15:35)
[2022-04-15 16:25] LABS: #Basophils 0.1 thou/uL (0.0-0.2); #Eosinphils 0.2 thou/uL (0.0-0.7); #Lymphocytes 2.9 thou/uL (1.20-3.40); #Monocytes 0.5 thou/uL (0.11-0.59); #Neutrophils 6.4 thou/uL (1.40-6.50); %Basophils 0.6 % (0.0-1.0); %Lymphocytes 28.7 % (21.0-51.0); %Monocytes 5.2 % (0.0-10.0); %Neutrophils 63.4 % (42.0-75.0); Mean Corpuscular HGB CONC 31.8 g/dL (32.0-36.0); Mean Corpuscular Hemoglobin 30.1 pg (27.0-31.0); Mean Corpuscular Volume 94.8 fL (78.0-98.0); Mean Platelet Volume 7.4 fL (7.4-10.4); Platelet Count 307 thou/uL (130-400); RBC Distribution Width 11.9 % (11.5-14.5); Red Blood Cell (RBC) Count 4.66 mill/uL (4.20-5.40); White Blood Cell (WBC) Count 10.2 thou/uL (4.8-10.8)
[2022-04-15 16:35] LABS: ALT (SGPT) 18 U/L (8-55); AST (SGOT) 26 U/L (5-34); Alkaline Phosphatase 71 U/L (40-110); Anion Gap 17 mmol/L (10-20); BUN (Urea Nitrogen) 21 mg/dL (9.8-20.1); Bilirubin, Total 0.4 mg/dL (0.2-1.2); Calc. Creatinine Clearance 0 mL/min (70-130); Calcium 9.7 mg/dL (7.8-10.44); Carbon Dioxide 33 mmol/L (23-31); Chloride 94 mmol/L (98-107); Estimated GFR 55; Globulin 3.7 g/dL (2.4-3.5); Glucose 98 mg/dL (83-110); Potassium 3.8 mmol/L (3.5-5.1); Protein, Total 7.7 g/dL (5.8-8.1); Sodium 140 mmol/L (136-145)
[2022-04-15] MEDS ORDERED: Morphine 4 MG/ML VIAL ONE (20:27)
[2022-04-15] MEDS ORDERED: Ondansetron PF 4 MG/2 ML Vial ONE (20:28)
[2022-04-16] VITALS: BMI 37.2
[2022-04-16] MEDS ORDERED: Ondansetron ODT 4 MG TAB PO PRN (01:43)
[2022-04-16] MEDS ORDERED: Ondansetron PF 4 MG/2 ML Vial IVP PRN (01:43)
[2022-04-16] MEDS ORDERED: Acetaminophen 650 MG Suppository PR PRN (01:43)
[2022-04-16] MEDS ORDERED: Dextrose 5% in Water 1,000 ML IV PRN (01:47)
[2022-04-16] MEDS ORDERED: HumaLOG 300 UNITS/3 ML VIAL SC PRN ×2 (01:47)
[2022-04-16] MEDS ORDERED: Dextrose 50% Abboject 50 ML SYRINGE SLOW IVP PRN (01:47)
[2022-04-16] MEDS: Acetaminophen 325 MG TAB PO PRN ×2 (01:59→07:27)
[2022-04-16 04:27] LABS: #Basophils 0.1 thou/uL (0.0-0.2); #Eosinphils 0.3 thou/uL (0.0-0.7); #Lymphocytes 3.4 thou/uL (1.20-3.40); #Monocytes 0.7 thou/uL (0.11-0.59); #Neutrophils 4.8 thou/uL (1.40-6.50); %Basophils 0.7 % (0.0-1.0); %Eosinophils 3.3 % (0.0-10.0); %Lymphocytes 36.6 % (21.0-51.0); %Monocytes 7.4 % (0.0-10.0); Hemoglobin 12.6 g/dL (12.0-16.0); Mean Corpuscular HGB CONC 31.4 g/dL (32.0-36.0); Mean Corpuscular Hemoglobin 30.3 pg (27.0-31.0); Mean Corpuscular Volume 96.4 fL (78.0-98.0); Mean Platelet Volume 7.4 fL (7.4-10.4); Platelet Count 288 thou/uL (130-400); RBC Distribution Width 11.8 % (11.5-14.5); Red Blood Cell (RBC) Count 4.16 mill/uL (4.20-5.40); White Blood Cell (WBC) Count 9.2 thou/uL (4.8-10.8)
[2022-04-16 04:42] LABS: Anion Gap 12 mmol/L (10-20); BUN (Urea Nitrogen) 26 mg/dL (9.8-20.1); Calc. Creatinine Clearance 73 mL/min (70-130); Calcium 9.1 mg/dL (7.8-10.44); Carbon Dioxide 37 mmol/L (23-31); Chloride 94 mmol/L (98-107); Estimated GFR 49; Glucose 138 mg/dL (83-110); Potassium 3.5 mmol/L (3.5-5.1); Sodium 139 mmol/L (136-145)
[2022-04-16] MEDS ORDERED: guaiFENesin ER 600 MG TAB PO PRN (07:45)
[2022-04-16] MEDS ORDERED: traMADol HCl 50 MG TAB PO PRN (08:36)
[2022-04-16] MEDS ORDERED: Clopidogrel Bisulfate 75 MG TAB PO SCH (09:00)
[2022-04-16] MEDS ORDERED: Ezetimibe 10 MG TAB PO SCH (09:00)
[2022-04-16] MEDS ORDERED: Insulin Glargine 30 UNITS/0.3 ML VIAL SC SCH (09:00)
[2022-04-16] MEDS ORDERED: Furosemide 20 MG TAB PO SCH (09:00)
[2022-04-16] MEDS ORDERED: tiZANidine HCl 4 MG TAB PO PRN (09:58)
[2022-04-16] MEDS ORDERED: Dexamethasone 4 mg/ml Vial SLOW IVP SCH (10:30)
[2022-04-16 11:30] VITALS: TEMP 97.2
[2022-04-16 15:48] VITALS: BP 128/59
[2022-04-16] MEDS ORDERED: Budesonide 0.25 MG/2 ML NEB NEB SCH (18:30)
[2022-04-16] MEDS ORDERED: Loratadine 10 MG TAB PO SCH (21:00)
[2022-04-16] MEDS ORDERED: Montelukast Sodium 10 mg Tablet PO SCH (21:00)
[2022-04-19] MEDS ORDERED: FLU VACC QS2022-23(65YR UP)/PF 240 MCG/0.7 ML SYRINGE IM ONE (09:00)
== END 2022-04-16 13:10 | disposition home or self-care (01) ==
LOC: ERS 12:02 → ERHOLD 21:33 → 2NO 23:58
PROVIDERS: ADMIT Internal Medicine; ATTEND Internal Medicine
DX: M47.812 Spondylosis without myelopathy or radiculopathy, cervical region (principal); M48.02 Spinal stenosis, cervical region; J43.9 Emphysema, unspecified; I13.0 Hypertensive heart and chronic kidney disease with heart failure and stage 1 through stage 4 chronic kidney disease, or unspecified chronic kidney disease; E11.22 Type 2 diabetes mellitus with diabetic chronic kidney disease; N18.31 Chronic kidney disease, stage 3a; I50.9 Heart failure, unspecified; J96.11 Chronic respiratory failure with hypoxia; E78.00 Pure hypercholesterolemia, unspecified; K21.9 Gastro-esophageal reflux disease without esophagitis; I48.91 Unspecified atrial fibrillation; G89.29 Other chronic pain; M54.9 Dorsalgia, unspecified; I25.10 Atherosclerotic heart disease of native coronary artery without angina pectoris; E66.01 Morbid (severe) obesity due to excess calories; Z68.37 Body mass index [BMI] 37.0-37.9, adult; Z87.891 Personal history of nicotine dependence; Z79.01 Long term (current) use of anticoagulants; Z79.02 Long term (current) use of antithrombotics/antiplatelets; Z79.4 Long term (current) use of insulin; Z79.899 Other long term (current) drug therapy; Z88.1 Allergy status to other antibiotic agents; Z88.8 Allergy status to other drugs, medicaments and biological substances; Z91.040 Latex allergy status; Z91.048 Other nonmedicinal substance allergy status; Z99.3 Dependence on wheelchair; Z99.81 Dependence on supplemental oxygen; Z20.822 Contact with and (suspected) exposure to COVID-19
CPT/HCPCS: 70450; 72125; 80048; 80053; 82962; 84484; 85025 ×2; 86140; 93971; 94640; 96374; 96375 ×2; 97116; 99284; G0378 ×2; U0003; U0005; 36415; 36416; J1100; J1815; J2270; J2405; J7620

== ENCOUNTER 2022-07-21 13:10 | Outpatient (CLI) | payer MEDICARE, OTHER | END 2022-07-21 13:11 | disposition home or self-care (01) | LOC: MRI 13:10 | PROVIDERS: ATTEND Family Medicine | DX: M47.22 Other spondylosis with radiculopathy, cervical region (principal); M48.02 Spinal stenosis, cervical region; M50.11 Cervical disc disorder with radiculopathy, high cervical region | CPT/HCPCS: 72141 ==

== ENCOUNTER 2022-07-27 10:25 | Outpatient (CLI) | payer MEDICARE, MEDICAID | END 2022-07-27 10:26 | disposition home or self-care (01) | LOC: RAD 10:25 | PROVIDERS: ATTEND Internal Medicine Critical Care Medicine | DX: R06.00 Dyspnea, unspecified (principal) | CPT/HCPCS: 71046 ==

== ENCOUNTER → 2022-08-11 | Outpatient (CLI) | payer MEDICARE, OTHER | LOC: PET 11:45 | PROVIDERS: ATTEND Internal Medicine Critical Care Medicine | DX: R91.1 Solitary pulmonary nodule (principal) | CPT/HCPCS: 78815; A9552 ==

== ENCOUNTER 2022-08-15 17:00 | Emergency (ER) | payer MEDICARE, OTHER ==
[2022-08-15 17:44] LABS: #Basophils 0.1 thou/uL (0.0-0.2); #Eosinphils 0.3 thou/uL (0.0-0.7); #Monocytes 0.6 thou/uL (0.11-0.59); #Neutrophils 4.9 thou/uL (1.40-6.50); %Basophils 0.6 % (0.0-1.0); %Eosinophils 3.2 % (0.0-10.0); %Lymphocytes 33.8 % (21.0-51.0); %Monocytes 6.8 % (0.0-10.0); %Neutrophils 55.6 % (42.0-75.0); Hemoglobin 13.2 g/dL (12.0-16.0); Mean Corpuscular HGB CONC 33.7 g/dL (32.0-36.0); Mean Corpuscular Hemoglobin 32.1 pg (27.0-31.0); Mean Corpuscular Volume 95.4 fl (78.0-98.0); Mean Platelet Volume 7.4 fL (7.4-10.4); Platelet Count 249 10x3/uL (130-400); RBC Distribution Width 12.5 % (11.5-14.5); White Blood Cell (WBC) Count 8.9 10x3/uL (4.8-10.8)
[2022-08-15] MEDS ORDERED: Dexamethasone 10 MG/ML VIAL ONE (17:53)
[2022-08-15] MEDS ORDERED: Meclizine HCl 25 MG TAB ONE (17:53)
[2022-08-15 18:03] LABS: ALT (SGPT) 22 U/L (8-55); AST (SGOT) 20 U/L (5-34); Albumin 3.8 g/dL (3.4-4.8); Alkaline Phosphatase 61 U/L (40-110); Anion Gap 14 mmol/L (10-20); BUN (Urea Nitrogen) 15 mg/dL (9.8-20.1); Bilirubin, Total 0.3 mg/dL (0.2-1.2); Calc. Creatinine Clearance 0 mL/min (70-130); Calcium 9.5 mg/dL (7.8-10.44); Carbon Dioxide 37 mmol/L (23-31); Chloride 94 mmol/L (98-107); Estimated GFR 52; Glucose 146 mg/dL (83-110); Magnesium 1.6 mg/dL (1.6-2.6); Potassium 3.8 mmol/L (3.5-5.1); Protein, Total 6.8 g/dL (5.8-8.1); Sodium 141 mmol/L (136-145)
== END 2022-08-15 18:40 | disposition home or self-care (01) ==
LOC: ERS 17:00
DX: R42 Dizziness and giddiness (principal); E11.9 Type 2 diabetes mellitus without complications; I50.9 Heart failure, unspecified; E78.00 Pure hypercholesterolemia, unspecified; E66.9 Obesity, unspecified; K21.9 Gastro-esophageal reflux disease without esophagitis; Z87.891 Personal history of nicotine dependence
CPT/HCPCS: 36415; 80053; 83735; 85025; 93005; 96374; J1100

== ENCOUNTER 2022-09-15 10:55 | Day surgery (SDC) | payer MEDICARE, MEDICAID ==
[2022-09-13 14:11] VITALS: BMI 38.4
[2022-09-15] MEDS ORDERED: Ipratropium/Albuterol 3 ML NEB ONE (12:04)
[2022-09-15] MEDS ORDERED: FENTANYL 50 MCG/ML 1 ML VIAL ONE (12:54)
[2022-09-15] MEDS ORDERED: PROPOFOL 200 MG/20 ML VIAL ONE (12:57)
[2022-09-15 13:08] LABS: #Basophils 0.1 thou/uL (0.0-0.2); #Eosinphils 0.1 thou/uL (0.0-0.7); #Lymphocytes 3.3 thou/uL (1.20-3.40); #Monocytes 0.6 thou/uL (0.11-0.59); #Neutrophils 5.4 thou/uL (1.40-6.50); %Basophils 0.9 % (0.0-1.0); %Eosinophils 1.4 % (0.0-10.0); %Lymphocytes 34.7 % (21.0-51.0); %Monocytes 6.5 % (0.0-10.0); %Neutrophils 56.4 % (42.0-75.0); Hemoglobin 13.8 g/dL (12.0-16.0); Mean Corpuscular HGB CONC 32.6 g/dL (32.0-36.0); Mean Corpuscular Hemoglobin 30.4 pg (27.0-31.0); Mean Corpuscular Volume 93.2 fl (78.0-98.0); Mean Platelet Volume 7.7 fL (7.4-10.4); Platelet Count 297 10x3/uL (130-400); RBC Distribution Width 12.2 % (11.5-14.5); Red Blood Cell (RBC) Count 4.54 mill/uL (4.20-5.40); White Blood Cell (WBC) Count 9.6 10x3/uL (4.8-10.8)
[2022-09-15 13:33] LABS: BUN (Urea Nitrogen) 23 mg/dL (9.8-20.1); Calc. Creatinine Clearance 79 mL/min (70-130); Calcium 9.7 mg/dL (7.8-10.44); Estimated GFR 51; Glucose 238 mg/dL (83-110)
[2022-09-15 13:44] LABS: Chloride 82 mmol/L (98-107); Potassium 2.7 mmol/L (3.5-5.1); Sodium 134 mmol/L (136-145)
[2022-09-15 13:47] LABS: Anion Gap 25 mmol/L (10-20); Carbon Dioxide 30 mmol/L (23-31)
== END 2022-09-15 14:35 | disposition home or self-care (01) ==
LOC: SDC 10:55
PROVIDERS: ATTEND Internal Medicine Gastroenterology
PROC: 0DB38ZX Excision of Lower Esophagus, Via Natural or Artificial Opening Endoscopic, Diagnostic (ICD-10-PCS; principal; 2022-09-15)
PROC: 0DBH8ZX Excision of Cecum, Via Natural or Artificial Opening Endoscopic, Diagnostic (ICD-10-PCS; 2022-09-15)
PROC: 0DBL8ZX Excision of Transverse Colon, Via Natural or Artificial Opening Endoscopic, Diagnostic (ICD-10-PCS; 2022-09-15)
PROC: 0DBN8ZX Excision of Sigmoid Colon, Via Natural or Artificial Opening Endoscopic, Diagnostic (ICD-10-PCS; 2022-09-15)
DX: Z12.11 Encounter for screening for malignant neoplasm of colon (principal); D12.0 Benign neoplasm of cecum; D12.3 Benign neoplasm of transverse colon; D12.5 Benign neoplasm of sigmoid colon; K20.90 Esophagitis, unspecified without bleeding; K44.9 Diaphragmatic hernia without obstruction or gangrene; Q43.8 Other specified congenital malformations of intestine; K64.8 Other hemorrhoids; K62.89 Other specified diseases of anus and rectum; Z79.01 Long term (current) use of anticoagulants; Z79.02 Long term (current) use of antithrombotics/antiplatelets; Z79.4 Long term (current) use of insulin; Z79.899 Other long term (current) drug therapy; Z88.1 Allergy status to other antibiotic agents; Z88.5 Allergy status to narcotic agent; Z88.8 Allergy status to other drugs, medicaments and biological substances; Z91.040 Latex allergy status; Z91.048 Other nonmedicinal substance allergy status
CPT/HCPCS: 43239; 45385; 80048; 82962; 85025; 93005; J3010; 36416; 88305; 93010; J2704; J7620

== ENCOUNTER 2023-03-09 09:17 | Outpatient (CLI) | payer MEDICARE, OTHER | END 2023-03-09 09:18 | disposition home or self-care (01) | LOC: RAD 09:17 | PROVIDERS: ATTEND Internal Medicine Critical Care Medicine | DX: R06.00 Dyspnea, unspecified (principal); J98.4 Other disorders of lung; R91.8 Other nonspecific abnormal finding of lung field; M19.011 Primary osteoarthritis, right shoulder; M19.012 Primary osteoarthritis, left shoulder | CPT/HCPCS: 71046 ==

== ENCOUNTER 2023-04-05 15:29 | Observation (INO) | payer MEDICARE, MEDICAID ==
[2023-04-05 16:03] LABS: #Basophils 0.1 thou/uL (0.0-0.2); #Eosinphils 0.2 thou/uL (0.0-0.7); #Monocytes 0.7 thou/uL (0.11-0.59); #Neutrophils 6.5 thou/uL (1.40-6.50); %Basophils 0.6 % (0.0-1.0); %Eosinophils 1.9 % (0.0-10.0); %Lymphocytes 26.8 % (21.0-51.0); %Monocytes 7.2 % (0.0-10.0); %Neutrophils 63.2 % (42.0-75.0); Hematocrit 42.4 % (36.0-47.0); Mean Platelet Volume 9.4 fL (7.4-10.4); Platelet Count 364 10x3/uL (130-400); RBC Distribution Width 12.9 % (11.5-14.5); Red Blood Cell (RBC) Count 4.66 mill/uL (4.20-5.40); White Blood Cell (WBC) Count 10.2 10x3/uL (4.8-10.8)
[2023-04-05 16:30] LABS: Troponin I Less than 0.010 ng/mL (< 0.028)
[2023-04-05 16:34] LABS: ALT (SGPT) 18 U/L (8-55); AST (SGOT) 29 U/L (5-34); Alkaline Phosphatase 80 U/L (40-110); BUN (Urea Nitrogen) 52 mg/dL (9.8-20.1); Bilirubin, Total 0.3 mg/dL (0.2-1.2); Calc. Creatinine Clearance 0 mL/min (70-130); Calcium 10.5 mg/dL (7.8-10.44); Estimated GFR 33; Globulin 3.9 g/dL (2.4-3.5); Glucose 170 mg/dL (83-110); Protein, Total 7.9 g/dL (5.8-8.1)
[2023-04-05 16:43] LABS: Anion Gap 23 mmol/L (10-20); Carbon Dioxide 35 mmol/L (23-31); Chloride 80 mmol/L (98-107); Potassium 2.7 mmol/L (3.5-5.1); Sodium 135 mmol/L (136-145)
[2023-04-05] MEDS ORDERED: NS 0.9% w/ 40 MEQ KCL 1,000 ML IV SCH (19:15)
[2023-04-05] MEDS ORDERED: Potassium Chloride 20 MEQ TAB ONE (20:18)
[2023-04-05 21:58] VITALS: BMI 37.7
[2023-04-05] MEDS: Acetaminophen 325 MG TAB PO PRN (22:14)
[2023-04-05] MEDS ORDERED: Ipratropium/Albuterol 3 ML NEB NEB PRN (23:20)
[2023-04-05] MEDS ORDERED: Senokot S 8.6-50 MG TAB PO PRN (23:38)
[2023-04-05] MEDS ORDERED: Ondansetron ODT 4 MG TAB PO PRN (23:38)
[2023-04-05] MEDS ORDERED: Dextrose 50% Abboject 50 ML SYRINGE SLOW IVP PRN (23:42)
[2023-04-05] MEDS ORDERED: Dextrose 5% in Water 1,000 ML IV PRN (23:42)
[2023-04-05] MEDS ORDERED: HumaLOG 300 UNITS/3 ML VIAL SC PRN ×2 (23:42)
[2023-04-05] MEDS ORDERED: Glucagon 1 MG/ML KIT IM PRN (23:42)
[2023-04-06 00:26] LABS: Hemoglobin A1c 8.1 % (4.0-6.0)
[2023-04-06 05:07] LABS: BUN (Urea Nitrogen) 56 mg/dL (9.8-20.1); Calc. Creatinine Clearance 54 mL/min (70-130); Calcium 10.1 mg/dL (7.8-10.44); Estimated GFR 35; Glucose 177 mg/dL (83-110)
[2023-04-06 05:16] LABS: Anion Gap 19 mmol/L (10-20); Carbon Dioxide 39 mmol/L (23-31); Chloride 82 mmol/L (98-107); Potassium 3.2 mmol/L (3.5-5.1); Sodium 137 mmol/L (136-145)
[2023-04-06] MEDS ORDERED: Budesonide 0.25 MG/2 ML NEB NEB SCH (06:30)
[2023-04-06] MEDS ORDERED: Potassium Chloride 20 MEQ TAB PO SCH (08:00)
[2023-04-06] MEDS: Potassium Chloride 20 MEQ in Premix Bag 1 BAG IVPB SCH ×2 (08:58→11:46)
[2023-04-06] MEDS: Acetaminophen 325 MG TAB PO PRN ×2 (08:59→14:10)
[2023-04-06] MEDS ORDERED: Apixaban 5 MG TAB PO SCH (09:00)
[2023-04-06] MEDS ORDERED: FLU VACC QS2023(65UP)/MF59C/PF 60 MCG/0.5 ML SYRINGE IM ONE (09:00)
[2023-04-06] MEDS ORDERED: Ezetimibe 10 MG TAB PO SCH (09:00)
[2023-04-06] MEDS ORDERED: Furosemide 40 MG TAB PO SCH (09:00)
[2023-04-06] MEDS ORDERED: Magnesium Oxide 400 MG TAB PO SCH (09:00)
[2023-04-06 12:06] VITALS: BP 109/53; TEMP 97.5
[2023-04-06] MEDS ORDERED: Montelukast Sodium 10 mg Tablet PO SCH (21:00)
== END 2023-04-06 15:00 | disposition home or self-care (01) ==
LOC: ERS 15:29 → 2NO 19:48
PROVIDERS: ADMIT Student in an Organized Health Care Education/Training Program; ATTEND Family Medicine
DX: E87.6 Hypokalemia (principal); Z88.1 Allergy status to other antibiotic agents; Z88.5 Allergy status to narcotic agent; J44.9 Chronic obstructive pulmonary disease, unspecified; I48.91 Unspecified atrial fibrillation; K21.9 Gastro-esophageal reflux disease without esophagitis; N18.9 Chronic kidney disease, unspecified; E87.3 Alkalosis; E11.9 Type 2 diabetes mellitus without complications; I50.9 Heart failure, unspecified; Z79.4 Long term (current) use of insulin; Z79.01 Long term (current) use of anticoagulants; Z79.899 Other long term (current) drug therapy; Z91.040 Latex allergy status; Z91.048 Other nonmedicinal substance allergy status; Z88.8 Allergy status to other drugs, medicaments and biological substances; Z87.891 Personal history of nicotine dependence; Z90.49 Acquired absence of other specified parts of digestive tract; Z98.890 Other specified postprocedural states
CPT/HCPCS: 36415; 36416; 71045; 80048; 80053; 83036; 83880; 84484; 85025; 93005; 94640; 96374; 96376; G0378; J1815; J3480; J7626

== ENCOUNTER 2023-04-13 09:22 | Outpatient (CLI) | payer MEDICARE, OTHER, MEDICAID | END 2023-04-13 09:23 | disposition home or self-care (01) | LOC: RAD 09:22 | PROVIDERS: ATTEND Internal Medicine Critical Care Medicine | DX: R06.00 Dyspnea, unspecified (principal); R91.8 Other nonspecific abnormal finding of lung field | CPT/HCPCS: 71046; 83735; 84132 ==

== ENCOUNTER 2023-06-03 12:22 | Emergency (ER) | payer MEDICARE, MEDICAID ==
[2023-06-03] MEDS ORDERED: Ondansetron PF 4 MG/2 ML Vial ONE (12:38)
[2023-06-03] MEDS ORDERED: Morphine 4 MG/ML VIAL ONE ×2 (12:38→14:41)
[2023-06-03] MEDS ORDERED: Bacitracin 1 PK ONE (12:39)
[2023-06-03] MEDS ORDERED: Boostrix 0.5 ML (Tdap) VIAL (>/=7 yrs of age) ONE (14:41)
== END 2023-06-03 15:15 | disposition home or self-care (01) ==
LOC: ERS 12:22
DX: T25.221A Burn of second degree of right foot, initial encounter (principal); T25.291A Burn of second degree of multiple sites of right ankle and foot, initial encounter; T25.231A Burn of second degree of right toe(s) (nail), initial encounter; T31.0 Burns involving less than 10% of body surface; I50.9 Heart failure, unspecified; E11.9 Type 2 diabetes mellitus without complications; K21.9 Gastro-esophageal reflux disease without esophagitis; J44.9 Chronic obstructive pulmonary disease, unspecified; Z87.891 Personal history of nicotine dependence; X12.XXXA Contact with other hot fluids, initial encounter; Z79.899 Other long term (current) drug therapy; Z79.4 Long term (current) use of insulin
CPT/HCPCS: 90471; 90715; 96374; 96375; 96376; G0390; J2270; J2405

== ENCOUNTER 2023-06-12 14:54 | Inpatient (IN) | payer MEDICARE, MEDICAID ==
[~2023-06-12 14:54] MED LIST changes: +Iopamidol-370 76% 500 ML MDV (1 ML CHARGE) ONE; -Lidocaine 2% Jelly 5 ML TUBE ONE; -Sodium Chloride 0.9% 15 ML NEB ONE
[2023-06-12 15:57] LABS: #Basophils 0.1 thou/uL (0.0-0.2); #Eosinphils 0.2 thou/uL (0.0-0.7); #Monocytes 0.9 thou/uL (0.11-0.59); #Neutrophils 7.3 thou/uL (1.40-6.50); %Basophils 0.5 % (0.0-1.0); %Eosinophils 1.6 % (0.0-10.0); %Lymphocytes 29.2 % (21.0-51.0); %Monocytes 7.3 % (0.0-10.0); %Neutrophils 61.2 % (42.0-75.0); Hematocrit 44.9 % (36.0-47.0); Hemoglobin 14.9 g/dL (12.0-16.0); Mean Corpuscular HGB CONC 33.2 g/dL (32.0-36.0); Mean Corpuscular Volume 90.3 fl (78.0-98.0); Mean Platelet Volume 9.4 fL (7.4-10.4); Platelet Count 327 10x3/uL (130-400); RBC Distribution Width 12.9 % (11.5-14.5); Red Blood Cell (RBC) Count 4.97 mill/uL (4.20-5.40); White Blood Cell (WBC) Count 11.9 10x3/uL (4.8-10.8)
[2023-06-12 16:20] LABS: ALT (SGPT) 18 U/L (8-55); AST (SGOT) 24 U/L (5-34); Albumin 3.8 g/dL (3.4-4.8); Alkaline Phosphatase 79 U/L (40-110); Anion Gap 18 mmol/L (10-20); BUN (Urea Nitrogen) 42 mg/dL (9.8-20.1); Bilirubin, Total 0.6 mg/dL (0.2-1.2); Calc. Creatinine Clearance 0 mL/min (70-130); Calcium 9.5 mg/dL (7.8-10.44); Carbon Dioxide 36 mmol/L (23-31); Chloride 82 mmol/L (98-107); Estimated GFR 37; Globulin 3.2 g/dL (2.4-3.5); Glucose 230 mg/dL (83-110); Magnesium 1.8 mg/dL (1.6-2.6); Potassium 3.5 mmol/L (3.5-5.1); Sodium 132 mmol/L (136-145)
[2023-06-12 16:24] LABS: Troponin I 0.012 ng/mL (< 0.028)
[2023-06-12] MEDS ORDERED: Ipratropium/Albuterol 3 ML NEB ONE ×2 (17:30→20:12)
[2023-06-12] MEDS ORDERED: LevoFLOXacin 750 mg/D5W 150 ml Premix Bag ONE (18:43)
[2023-06-12 19:11] LABS: SARS-CoV-2 NAA Rapid Test Not Detected (NotDetected)
[2023-06-12] MEDS ORDERED: methylPREDNISolone Sod Succ/PF 125 MG/2 ML VIAL ONE (20:11)
[2023-06-12 20:14] LABS: Bacteria/HPF 4+ HPF (None Seen); Bilirubin Negative (Negative); Blood, Urine Trace (Negative); CAUTI Indications for Culture Dysuria,urgency,freq; Clarity Turbid (Clear); Glucose, Urine (Dipstick) Normal (Negative); Ketone, Urine Negative (Negative); Leukocyte 500 Leu/uL (Negative); Nitrite Negative (Negative); Protein, Urine (Dipstick) 20 mg/dL (Neg-Trace); RBC/HPF 0-3 HPF (0-3); Renal Epithelial 0-3 HPF (None Seen); Squamous Epithelial 0-3 HPF (0-3); Transitional Epithelial 0-3 HPF (None Seen); Urobilinogen Normal mg/dL (Less than 2); WBC/HPF Greater than 50 HPF (0-3); pH, Urine 5.5 (5.0-9.0)
[2023-06-12 20:15] LABS: Urine Culture Reflex Yes Yes
[2023-06-12] MEDS ORDERED: Acetaminophen 325 MG TAB PO PRN (21:15)
[2023-06-12] MEDS ORDERED: Ondansetron PF 4 MG/2 ML Vial IVP PRN (21:15)
[2023-06-12] MEDS ORDERED: Ondansetron ODT 4 MG TAB SL PRN (21:15)
[2023-06-12] MEDS ORDERED: Ipratropium/Albuterol 3 ML NEB NEB PRN (21:54)
[2023-06-12 23:22] LABS: Lactic Acid 2.1 mmol/L (0.5-2.2)
[2023-06-13 00:35] LABS: Lactic Acid 1.4 mmol/L (0.5-2.2)
[2023-06-13] MEDS: Ipratropium/Albuterol 3 ML NEB NEB SCH ×7 (01:41→23:36)
[2023-06-13] MEDS ORDERED: Dextrose 5% in Water 1,000 ML IV PRN ×2 (03:03→05:31)
[2023-06-13] MEDS ORDERED: HumaLOG 300 UNITS/3 ML VIAL SC PRN ×2 (03:03)
[2023-06-13] MEDS ORDERED: Dextrose 50% Abboject 50 ML SYRINGE SLOW IVP PRN ×2 (03:03→05:31)
[2023-06-13] MEDS ORDERED: Glucagon 1 MG/ML KIT IM PRN ×2 (03:03→05:31)
[2023-06-13 05:14] LABS: Glucose POC Confirmation 530 mg/dL (83-110)
[2023-06-13] MEDS: HumaLOG 300 UNITS/3 ML VIAL SC PRN ×2 (05:41→11:19)
[2023-06-13] MEDS: Insulin Glargine 30 UNITS/0.3 ML VIAL SC SCH ×2 (08:49→21:52)
[2023-06-13] MEDS ORDERED: methylPREDNISolone Sod Succ 40 MG VIAL IVP SCH (09:00)
[2023-06-13] MEDS: Morphine 4 MG/ML VIAL SLOW IVP PRN ×2 (10:23→16:50)
[2023-06-13 12:13] LABS: #Monocytes 0.2 thou/uL (0.11-0.59); #Neutrophils 10.1 thou/uL (1.40-6.50); %Lymphocytes 6.3 % (21.0-51.0); %Monocytes 1.9 % (0.0-10.0); %Neutrophils 91.3 % (42.0-75.0); Mean Corpuscular HGB CONC 33.3 g/dL (32.0-36.0); Mean Corpuscular Hemoglobin 30.1 pg (27.0-31.0); Mean Corpuscular Volume 90.3 fl (78.0-98.0); Mean Platelet Volume 9.6 fL (7.4-10.4); Platelet Count 351 10x3/uL (130-400); RBC Distribution Width 13.1 % (11.5-14.5); Red Blood Cell (RBC) Count 4.65 mill/uL (4.20-5.40); White Blood Cell (WBC) Count 11.1 10x3/uL (4.8-10.8)
[2023-06-13] MEDS ORDERED: Insulin Glargine 30 UNITS/0.3 ML VIAL SC SCH (12:15)
[2023-06-13] MEDS ORDERED: Calamine/Zinc Oxide 177 ML LOTION TP PRN (12:25)
[2023-06-13 12:37] LABS: Anion Gap 23 mmol/L (10-20); BUN (Urea Nitrogen) 39 mg/dL (9.8-20.1); Calc. Creatinine Clearance 44 mL/min (70-130); Carbon Dioxide 28 mmol/L (23-31); Chloride 81 mmol/L (98-107); Estimated GFR 30; Potassium 3.1 mmol/L (3.5-5.1); Sodium 129 mmol/L (136-145)
[2023-06-13 12:41] LABS: Glucose 574 mg/dL (83-110)
[2023-06-13 13:05] VITALS: BMI 33.6
[2023-06-13] MEDS ORDERED: Piperacillin/Tazobactam 3.375 GM in Sodium Chloride 0.9% 100 ML IVPB SCH (13:15)
[2023-06-13] MEDS: Sodium Chloride 0.9% 1,000 ML IV SCH ×2 (13:16→23:13)
[2023-06-13] MEDS ORDERED: HumaLOG 300 UNITS/3 ML VIAL SC SCH (17:45)
[2023-06-13] MEDS: Silver Sulfadiazine 1% Cream 20 GM TUBE TOP PRN (18:30)
[2023-06-13] MEDS: Fentanyl 100 MCG/2 ML VIAL SLOW IVP PRN ×2 (18:34→22:55)
[2023-06-13 19:39] LABS: Anion Gap 18 mmol/L (10-20); BUN (Urea Nitrogen) 37 mg/dL (9.8-20.1); Calc. Creatinine Clearance 48 mL/min (70-130); Carbon Dioxide 30 mmol/L (23-31); Chloride 84 mmol/L (98-107); Estimated GFR 33; Potassium 3.2 mmol/L (3.5-5.1); Sodium 129 mmol/L (136-145)
[2023-06-13 19:47] LABS: Glucose 474 mg/dL (83-110)
[2023-06-13] MEDS: Nitrofurantoin Monohyd/M-Cryst 100 MG CAP PO SCH (21:51)
[2023-06-13] MEDS: Montelukast Sodium 10 mg Tablet PO SCH (21:52)
[2023-06-13] MEDS ORDERED: Acetaminophen 500 MG TAB PO SCH (23:00)
[2023-06-13] MEDS ORDERED: Potassium Chloride 20 MEQ TAB PO SCH (23:59)
[2023-06-14] MEDS: Ipratropium/Albuterol 3 ML NEB NEB SCH ×4 (01:57→18:54)
[2023-06-14] MEDS: Sodium Chloride 0.9% 1,000 ML IV SCH (02:17)
[2023-06-14 07:10] LABS: #Neutrophils 14.2 thou/uL (1.40-6.50); %Basophils 0.2 % (0.0-1.0); %Eosinophils 0.1 % (0.0-10.0); %Lymphocytes 13.5 % (21.0-51.0); %Monocytes 5.8 % (0.0-10.0); %Neutrophils 79.9 % (42.0-75.0); Hematocrit 38.3 % (36.0-47.0); Hemoglobin 12.8 g/dL (12.0-16.0); Mean Corpuscular HGB CONC 33.4 g/dL (32.0-36.0); Mean Corpuscular Hemoglobin 30.2 pg (27.0-31.0); Mean Corpuscular Volume 90.3 fl (78.0-98.0); Mean Platelet Volume 9.6 fL (7.4-10.4); Platelet Count 320 10x3/uL (130-400); RBC Distribution Width 13.2 % (11.5-14.5); Red Blood Cell (RBC) Count 4.24 mill/uL (4.20-5.40); White Blood Cell (WBC) Count 17.8 10x3/uL (4.8-10.8)
[2023-06-14 07:22] LABS: Hemoglobin A1c 9.4 % (4.0-6.0)
[2023-06-14 07:36] LABS: Anion Gap 15 mmol/L (10-20); BUN (Urea Nitrogen) 31 mg/dL (9.8-20.1); Calc. Creatinine Clearance 67 mL/min (70-130); Calcium 9.6 mg/dL (7.8-10.44); Carbon Dioxide 33 mmol/L (23-31); Chloride 90 mmol/L (98-107); Estimated GFR 50; Glucose 120 mg/dL (83-110); Potassium 3.2 mmol/L (3.5-5.1); Sodium 135 mmol/L (136-145)
[2023-06-14] MEDS: Nitrofurantoin Monohyd/M-Cryst 100 MG CAP PO SCH ×2 (07:56→20:07)
[2023-06-14] MEDS: HumaLOG 300 UNITS/3 ML VIAL SC SCH ×3 (07:57→17:26)
[2023-06-14] MEDS: Insulin Glargine 30 UNITS/0.3 ML VIAL SC SCH ×2 (07:57→20:07)
[2023-06-14] MEDS ORDERED: predniSONE 20 MG TAB PO SCH (08:00)
[2023-06-14] MEDS ORDERED: Calamine/Zinc Oxide 177 ML LOTION TP SCH (09:00)
[2023-06-14] MEDS: Fentanyl 100 MCG/2 ML VIAL SLOW IVP PRN ×2 (10:12→17:29)
[2023-06-14] MEDS: HumaLOG 300 UNITS/3 ML VIAL SC PRN (12:47)
[2023-06-14] MEDS: Silver Sulfadiazine 1% Cream 20 GM TUBE TOP PRN (17:23)
[2023-06-14] MEDS ORDERED: Morphine 2 MG/ML VIAL SLOW IVP PRN (17:31)
[2023-06-14] MEDS ORDERED: LevoFLOXacin 750 mg/D5W 750 MG in Premix 1 BAG IVPB SCH (18:00)
[2023-06-14] MEDS: Ibuprofen 200 MG TAB PO SCH (20:07)
[2023-06-14] MEDS: Montelukast Sodium 10 mg Tablet PO SCH (20:07)
[2023-06-14] MEDS: Senokot S 8.6-50 MG TAB PO SCH (20:07)
[2023-06-15 06:08] LABS: #Monocytes 0.9 thou/uL (0.11-0.59); #Neutrophils 9.4 thou/uL (1.40-6.50); %Basophils 0.1 % (0.0-1.0); %Eosinophils 0.2 % (0.0-10.0); %Lymphocytes 25.8 % (21.0-51.0); %Monocytes 6.2 % (0.0-10.0); %Neutrophils 67.5 % (42.0-75.0); Hematocrit 39.4 % (36.0-47.0); Mean Corpuscular Hemoglobin 30.7 pg (27.0-31.0); Mean Corpuscular Volume 92.9 fl (78.0-98.0); Mean Platelet Volume 9.5 fL (7.4-10.4); Platelet Count 303 10x3/uL (130-400); RBC Distribution Width 13.7 % (11.5-14.5); Red Blood Cell (RBC) Count 4.24 mill/uL (4.20-5.40)
[2023-06-15 06:38] LABS: Anion Gap 14 mmol/L (10-20); BUN (Urea Nitrogen) 26 mg/dL (9.8-20.1); Calc. Creatinine Clearance 71 mL/min (70-130); Calcium 9.4 mg/dL (7.8-10.44); Carbon Dioxide 32 mmol/L (23-31); Chloride 94 mmol/L (98-107); Estimated GFR 54; Glucose 117 mg/dL (83-110); Potassium 3.3 mmol/L (3.5-5.1); Sodium 137 mmol/L (136-145)
[2023-06-15] MEDS: Ipratropium/Albuterol 3 ML NEB NEB SCH ×2 (07:03→13:11)
[2023-06-15 07:22] VITALS: BP 99/54; TEMP 97.8
[2023-06-15] MEDS ORDERED: predniSONE 5 MG TAB PO SCH (08:00)
[2023-06-15] MEDS ORDERED: Polyethylene Glycol 3350 17 GM Packet PO SCH (09:00)
[2023-06-15] MEDS ORDERED: Lidocaine 4% Patch TD SCH (09:00)
[2023-06-15] MEDS: HumaLOG 300 UNITS/3 ML VIAL SC SCH ×2 (09:05→11:31)
[2023-06-15] MEDS: Insulin Glargine 30 UNITS/0.3 ML VIAL SC SCH (09:05)
[2023-06-15] MEDS: Senokot S 8.6-50 MG TAB PO SCH (09:08)
[2023-06-15] MEDS: Ibuprofen 200 MG TAB PO SCH (09:08)
[2023-06-15] MEDS: Nitrofurantoin Monohyd/M-Cryst 100 MG CAP PO SCH (09:08)
[2023-06-15] MEDS ORDERED: Transdermal Patch Removal TOP SCH (21:00)
== END 2023-06-15 15:18 | disposition home or self-care (01) | DRG 189 ==
LOC: ERS 14:54 → T4-A 21:02 → OBSVTOIN 06-13 15:52
PROVIDERS: ADMIT Student in an Organized Health Care Education/Training Program; ATTEND Internal Medicine
DX: J96.21 Acute and chronic respiratory failure with hypoxia (principal); J44.1 Chronic obstructive pulmonary disease with (acute) exacerbation; E87.20 Acidosis, unspecified; N39.0 Urinary tract infection, site not specified; E78.5 Hyperlipidemia, unspecified; R31.9 Hematuria, unspecified; E66.9 Obesity, unspecified; R30.0 Dysuria; R91.1 Solitary pulmonary nodule; I50.9 Heart failure, unspecified; S31.000A Unspecified open wound of lower back and pelvis without penetration into retroperitoneum, initial encounter; E11.65 Type 2 diabetes mellitus with hyperglycemia; T25.021A Burn of unspecified degree of right foot, initial encounter; B96.20 Unspecified Escherichia coli [E. coli] as the cause of diseases classified elsewhere; E11.22 Type 2 diabetes mellitus with diabetic chronic kidney disease; N18.31 Chronic kidney disease, stage 3a; Z91.040 Latex allergy status; Z79.4 Long term (current) use of insulin; Z79.899 Other long term (current) drug therapy; Z68.33 Body mass index [BMI] 33.0-33.9, adult; Z90.49 Acquired absence of other specified parts of digestive tract; Z98.51 Tubal ligation status; Z98.890 Other specified postprocedural states; Z87.891 Personal history of nicotine dependence; Z11.52 Encounter for screening for COVID-19
CPT/HCPCS: 36415; 36416; 71045; 71275; 80048; 80053; 81001; 82010; 82947; 83036; 83605; 83735; 83880; 84484; 85025; 85379; 87077; 87086; 87186; 93005; 94640; 96361; 96365; 96375; 97139; J1815; J1956; J2270; J2272; J2920; J2930; J3010; J7050; J7512; J7620; Q9967

== ENCOUNTER 2023-06-19 14:59 | Inpatient (IN) | payer MEDICARE, MEDICAID ==
[2023-06-19] MEDS ORDERED: Albuterol 2.5 MG/0.5 ML NEB ONE (15:44)
[2023-06-19] MEDS ORDERED: Ipratropium/Albuterol 3 ML NEB ONE (15:44)
[2023-06-19 15:53] LABS: Actual Bicarbonate (HCO3a) 31.3 mEq/L (22-28); Analyzer IN Cardio ER; Base Excess (BEa) 5.5 mEq/L (-2.0 to +3.0); CO2 Tension 50.3 mmHg (35.0-45.0); Calcium, Ionized (arterial) 1.16 mmol/L (1.12-1.30); Carboxyhemoglobin (COHb) 1.3 gm% (0.0-3.0); Hematocrit-ABG 41 % (36.0-47.0); Potassium - ABG Lab 3.56 mmol/L (3.70-5.30); pH, Arterial 7.412 (7.35-7.45)
[2023-06-19] MEDS ORDERED: LevoFLOXacin 750 mg/D5W 150 ml Premix Bag ONE (15:53)
[2023-06-19] MEDS ORDERED: Dexamethasone 10 MG/ML VIAL ONE (15:53)
[2023-06-19 15:59] LABS: ALV-art Gradient 80.165 mmHg (0-20); O2 Tension (PaO2), arterial 56.6 mmHg (> 70.0); Puncture Site RRA
[2023-06-19 16:06] LABS: #Eosinphils 0.4 thou/uL (0.0-0.7); #Monocytes 0.8 thou/uL (0.11-0.59); #Neutrophils 6.4 thou/uL (1.40-6.50); %Basophils 0.4 % (0.0-1.0); %Eosinophils 3.9 % (0.0-10.0); %Monocytes 8.1 % (0.0-10.0); %Neutrophils 63.4 % (42.0-75.0); Hematocrit 42.3 % (36.0-47.0); Hemoglobin 14.1 g/dL (12.0-16.0); Mean Corpuscular HGB CONC 33.3 g/dL (32.0-36.0); Mean Corpuscular Hemoglobin 30.9 pg (27.0-31.0); Mean Corpuscular Volume 92.8 fl (78.0-98.0); Mean Platelet Volume 9.3 fL (7.4-10.4); Platelet Count 280 10x3/uL (130-400); RBC Distribution Width 13.7 % (11.5-14.5); Red Blood Cell (RBC) Count 4.56 mill/uL (4.20-5.40)
[2023-06-19 16:35] LABS: Troponin I Less than 0.010 ng/mL (< 0.028)
[2023-06-19 17:15] LABS: ALT (SGPT) 28 U/L (8-55); AST (SGOT) 26 U/L (5-34); Albumin 3.7 g/dL (3.4-4.8); Alkaline Phosphatase 77 U/L (40-110); Anion Gap 18 mmol/L (10-20); BUN (Urea Nitrogen) 17 mg/dL (9.8-20.1); Bilirubin, Total 0.9 mg/dL (0.2-1.2); Calc. Creatinine Clearance 0 mL/min (70-130); Calcium 9.7 mg/dL (7.8-10.44); Carbon Dioxide 32 mmol/L (23-31); Chloride 91 mmol/L (98-107); Estimated GFR 56; Globulin 3.3 g/dL (2.4-3.5); Glucose 171 mg/dL (83-110); Lipase 18 U/L (8-78); Potassium 3.6 mmol/L (3.5-5.1); Sodium 137 mmol/L (136-145)
[2023-06-19] MEDS ORDERED: Magnesium 2 GM/50 ML BAG (IN WATER) ONE (17:43)
[2023-06-19] MEDS ORDERED: Senokot S 8.6-50 MG TAB PO PRN (18:00)
[2023-06-19] MEDS ORDERED: Acetaminophen 325 MG TAB PO PRN (18:00)
[2023-06-19 18:23] LABS: SARS-CoV-2 NAA Rapid Test Not Detected (NotDetected)
[2023-06-19] MEDS ORDERED: Glucagon 1 MG/ML KIT IM PRN (18:30)
[2023-06-19] MEDS ORDERED: Dextrose 5% in Water 1,000 ML IV PRN (18:30)
[2023-06-19] MEDS ORDERED: Dextrose 50% Abboject 50 ML SYRINGE SLOW IVP PRN (18:30)
[2023-06-19 18:45] LABS: Bacteria/HPF 4+ HPF (None Seen); Bilirubin Negative (Negative); Blood, Urine Trace (Negative); CAUTI Indications for Culture Pelvic or flank pain; Clarity Turbid (Clear); Glucose, Urine (Dipstick) 70 mg/dL (Negative); Ketone, Urine 20 mg/dL (Negative); Leukocyte 500 Leu/uL (Negative); Nitrite Negative (Negative); Protein, Urine (Dipstick) 20 mg/dL (Neg-Trace); RBC/HPF 0-3 HPF (0-3); Specific Gravity, Urine 1.018 (1.002-1.036); Urobilinogen Normal mg/dL (Less than 2); WBC/HPF Greater than 50 HPF (0-3); pH, Urine 5.5 (5.0-9.0)
[2023-06-19 18:47] LABS: Urine Culture Reflex Yes Yes
[2023-06-19 20:01] VITALS: BMI 35.5
[2023-06-19] MEDS ORDERED: Ketorolac Tromethamine 30 MG/ML VIAL IVP PRN (20:28)
[2023-06-19] MEDS: methylPREDNISolone Sod Succ 40 MG VIAL IVP SCH ×2 (20:45→23:31)
[2023-06-19 20:46] LABS: Lactic Acid 1.9 mmol/L (0.5-2.2)
[2023-06-19] MEDS: Famotidine 20 MG TAB PO SCH (21:18)
[2023-06-19] MEDS: Insulin Regular 300 UNITS/3 ML VIAL SC PRN (21:18)
[2023-06-19] MEDS: Nitrofurantoin Macrocrystal 50 MG CAP PO SCH (21:20)
[2023-06-19] MEDS: Ipratropium/Albuterol 3 ML NEB NEB SCH (22:03)
[2023-06-20] MEDS: Ipratropium/Albuterol 3 ML NEB NEB SCH ×5 (01:45→19:27)
[2023-06-20] MEDS: Insulin Regular 300 UNITS/3 ML VIAL SC PRN ×4 (03:53→20:33)
[2023-06-20] MEDS: methylPREDNISolone Sod Succ 40 MG VIAL IVP SCH ×3 (05:52→17:31)
[2023-06-20] MEDS: Nitrofurantoin Macrocrystal 50 MG CAP PO SCH ×4 (09:20→20:32)
[2023-06-20] MEDS: Famotidine 20 MG TAB PO SCH ×2 (09:20→20:32)
[2023-06-20] MEDS ORDERED: Magnesium Citrate 300 ML BOT PO SCH (13:15)
[2023-06-20] MEDS ORDERED: Nystatin Powder 15 GM BOT TOP PRN (13:38)
[2023-06-20] MEDS: Insulin Glargine 30 UNITS/0.3 ML VIAL SC SCH (20:33)
[2023-06-20] MEDS ORDERED: Montelukast Sodium 10 mg Tablet PO SCH (21:00)
[2023-06-20] MEDS ORDERED: predniSONE 50 MG TAB PO SCH (23:30)
[2023-06-21] MEDS: Ipratropium/Albuterol 3 ML NEB NEB SCH ×2 (01:29→08:59)
[2023-06-21] MEDS: Insulin Regular 300 UNITS/3 ML VIAL SC PRN (05:28)
[2023-06-21] MEDS ORDERED: predniSONE 50 MG TAB PO SCH (06:00)
[2023-06-21] MEDS: Famotidine 20 MG TAB PO SCH (08:55)
[2023-06-21] MEDS: Nitrofurantoin Macrocrystal 50 MG CAP PO SCH (08:55)
[2023-06-21] MEDS: Insulin Glargine 30 UNITS/0.3 ML VIAL SC SCH (08:55)
[2023-06-21] MEDS ORDERED: MAGNESIUM GLYCINATE 200 MG PO SCH (09:00)
[2023-06-21 09:03] VITALS: BP 123/61; TEMP 97.6
== END 2023-06-21 11:08 | disposition home or self-care (01) | DRG 189 ==
LOC: ERS 14:59 → T4-A 17:42
PROVIDERS: ADMIT Hospitalist; ATTEND Hospitalist
DX: J96.21 Acute and chronic respiratory failure with hypoxia (principal); J44.1 Chronic obstructive pulmonary disease with (acute) exacerbation; N30.00 Acute cystitis without hematuria; E11.9 Type 2 diabetes mellitus without complications; E78.5 Hyperlipidemia, unspecified; I50.9 Heart failure, unspecified; E78.00 Pure hypercholesterolemia, unspecified; K21.9 Gastro-esophageal reflux disease without esophagitis; I25.10 Atherosclerotic heart disease of native coronary artery without angina pectoris; B96.20 Unspecified Escherichia coli [E. coli] as the cause of diseases classified elsewhere; E66.01 Morbid (severe) obesity due to excess calories; M16.12 Unilateral primary osteoarthritis, left hip; Z86.73 Personal history of transient ischemic attack (TIA), and cerebral infarction without residual deficits; Z90.49 Acquired absence of other specified parts of digestive tract; Z98.51 Tubal ligation status; Z87.891 Personal history of nicotine dependence; Z91.040 Latex allergy status; Z98.890 Other specified postprocedural states; Z88.5 Allergy status to narcotic agent; Z91.09 Other allergy status, other than to drugs and biological substances; Z79.4 Long term (current) use of insulin; Z79.899 Other long term (current) drug therapy; Z85.51 Personal history of malignant neoplasm of bladder; Z68.35 Body mass index [BMI] 35.0-35.9, adult; Z11.52 Encounter for screening for COVID-19
CPT/HCPCS: 36415; 36416; 36600; 71045; 80053; 81001; 82805; 83605; 83690; 83880; 84484; 85025; 87040; 87086; 93005; 94640; 94644; 97139; J1100; J1815; J1885; J1956; J2920; J3475; J7512; J7611; J7620

== ENCOUNTER 2023-08-17 08:35 | Outpatient (CLI) | payer MEDICARE, MEDICAID | END 2023-08-17 08:36 | disposition home or self-care (01) | LOC: RAD 08:35 | PROVIDERS: ATTEND Internal Medicine Critical Care Medicine | DX: J44.9 Chronic obstructive pulmonary disease, unspecified (principal); J98.11 Atelectasis; R09.89 Other specified symptoms and signs involving the circulatory and respiratory systems | CPT/HCPCS: 71046 ==

== ENCOUNTER 2023-08-19 11:57 | Inpatient (IN) | payer MEDICARE, MEDICAID ==
[2023-08-19] MEDS ORDERED: Cefepime 2 GM VIAL ONE ×2 (12:18→12:22)
[2023-08-19] MEDS ORDERED: Sodium Chloride 0.9% 0 ML ONE (12:18)
[2023-08-19] MEDS ORDERED: Ipratropium/Albuterol 3 ML NEB ONE (12:21)
[2023-08-19 12:22] LABS: #Monocytes 0.9 thou/uL (0.11-0.59); #Neutrophils 4.5 thou/uL (1.40-6.50); %Basophils 0.2 % (0.0-1.0); %Lymphocytes 32.8 % (21.0-51.0); %Monocytes 11.4 % (0.0-10.0); %Neutrophils 55.4 % (42.0-75.0); Hematocrit 40.8 % (36.0-47.0); Hemoglobin 13.5 g/dL (12.0-16.0); Mean Corpuscular HGB CONC 33.1 g/dL (32.0-36.0); Mean Corpuscular Hemoglobin 30.4 pg (27.0-31.0); Mean Corpuscular Volume 91.9 fl (78.0-98.0); Mean Platelet Volume 9.5 fL (7.4-10.4); Platelet Count 252 10x3/uL (130-400); RBC Distribution Width 13.3 % (11.5-14.5); Red Blood Cell (RBC) Count 4.44 mill/uL (4.20-5.40); White Blood Cell (WBC) Count 8.2 10x3/uL (4.8-10.8)
[2023-08-19] MEDS ORDERED: methylPREDNISolone Sod Succ/PF 125 MG/2 ML VIAL ONE (12:22)
[2023-08-19] MEDS ORDERED: Sodium Chloride 0.9% 100 ML ONE (12:22)
[2023-08-19 12:37] LABS: ALT (SGPT) 34 U/L (8-55); AST (SGOT) 51 U/L (5-34); Albumin 3.8 g/dL (3.4-4.8); Alkaline Phosphatase 74 U/L (40-110); Anion Gap 14 mmol/L (10-20); BUN (Urea Nitrogen) 22 mg/dL (9.8-20.1); Bilirubin, Total 0.5 mg/dL (0.2-1.2); Calc. Creatinine Clearance 0 mL/min (70-130); Calcium 9.4 mg/dL (7.8-10.44); Carbon Dioxide 36 mmol/L (23-31); Chloride 87 mmol/L (98-107); Estimated GFR 46; Globulin 3.4 g/dL (2.4-3.5); Glucose 303 mg/dL (83-110); Potassium 3.7 mmol/L (3.5-5.1); Protein, Total 7.2 g/dL (5.8-8.1); Sodium 133 mmol/L (136-145)
[2023-08-19 12:38] LABS: PTT 28.2 sec (22.9-36.1)
[2023-08-19 13:09] LABS: Influenza A by NAA DETECTED (NotDetected); Influenza B by NAA Not Detected (NotDetected); SARS-CoV-2 NAA Rapid Test Not Detected (NotDetected)
[2023-08-19 13:12] LABS: Base Excess 8.9 mEq/L (-2.0 to +3.0); Calcium, Ionized (venous) 1.09 mmol/L (1.16-1.32); Chloride (VBG) 86 mmol/L (98-106); Hematocrit-VBG 43 % (36.0-47.0); Hemoglobin (Hb) 14.5 g/dL (11.7-16.1); Sodium 133 mmol/L (133-146); pH (venous) 7.332 (7.32-7.43)
[2023-08-19] MEDS ORDERED: Ketorolac Tromethamine 30 MG (1 mL) VIAL ONE (13:25)
[2023-08-19] MEDS ORDERED: Ipratropium/Albuterol 3 ML NEB NEB PRN (14:58)
[2023-08-19] MEDS ORDERED: Acetaminophen 650 MG Suppository PR PRN (14:58)
[2023-08-19] MEDS ORDERED: Dextrose 5% in Water 1,000 ML IV PRN (15:20)
[2023-08-19] MEDS ORDERED: Glucagon 1 MG/ML KIT IM PRN (15:20)
[2023-08-19] MEDS ORDERED: Dextrose 50% Abboject 50 ML SYRINGE SLOW IVP PRN (15:20)
[2023-08-19] MEDS: Vancomycin (BATCH) 2 GM in Premix 1 BAG IVPB SCH (17:32)
[2023-08-19] MEDS: Azithromycin 500 MG in Sodium Chloride 0.9% 250 ML 250 ML IVPB SCH (17:32)
[2023-08-19] MEDS: Budesonide 0.25 MG/2 ML NEB NEB SCH (18:29)
[2023-08-19 18:32] VITALS: BMI 35.4
[2023-08-19] MEDS: Arformoterol 15 MCG/2 ML NEB NEB SCH (18:32)
[2023-08-19] MEDS: Ipratropium/Albuterol 3 ML NEB NEB SCH (18:32)
[2023-08-19] MEDS: HumaLOG 300 UNITS/3 ML VIAL SC PRN (18:49)
[2023-08-19] MEDS ORDERED: Insulin Glargine 30 UNITS/0.3 ML VIAL SC SCH (21:00)
[2023-08-19] MEDS: Oseltamivir 75 MG CAP PO SCH (21:33)
[2023-08-19] MEDS: Montelukast Sodium 10 mg Tablet PO SCH (21:33)
[2023-08-19] MEDS: Insulin Glargine 30 UNITS/0.3 ML VIAL SC SCH (21:34)
[2023-08-19] MEDS ORDERED: Sodium Chloride 0.9% 1,000 ML IV SCH (22:30)
[2023-08-19] MEDS: Sodium Chloride 0.9% 500 ML IV SCH (22:45)
[2023-08-19 23:43] LABS: Anion Gap 16 mmol/L (10-20); BUN (Urea Nitrogen) 26 mg/dL (9.8-20.1); Calc. Creatinine Clearance 61 mL/min (70-130); Calcium 8.6 mg/dL (7.8-10.44); Carbon Dioxide 26 mmol/L (23-31); Chloride 92 mmol/L (98-107); Estimated GFR 42; Potassium 4.1 mmol/L (3.5-5.1); Sodium 130 mmol/L (136-145)
[2023-08-19 23:46] LABS: Critical Call Chemistry NUR.SC14 @1146; Glucose 550 mg/dL (83-110)
[2023-08-20 00:02] LABS: Bilirubin Negative (Negative); Blood, Urine 1+ (Negative); CAUTI Indications for Culture Alt mental st,lethar; Clarity Extra Turbid (Clear); Glucose, Urine (Dipstick) Greater than 1000 mg/dL (Negative); Ketone, Urine Negative (Negative); Leukocyte 500 Leu/uL (Negative); Nitrite 1+ (Negative); Protein, Urine (Dipstick) 20 mg/dL (Neg-Trace); Renal Epithelial 0-3 HPF (None Seen); Specific Gravity, Urine 1.024 (1.002-1.036); Squamous Epithelial 0-3 HPF (0-3); Urobilinogen Normal mg/dL (Less than 2); WBC/HPF Greater than 50 HPF (0-3); pH, Urine 5.5 (5.0-9.0)
[2023-08-20 00:06] LABS: Bacteria/HPF 1+ HPF (None Seen)
[2023-08-20 00:08] LABS: Urine Culture Reflex Yes Yes
[2023-08-20] MEDS: Sodium Chloride 0.9% 1,000 ML IV SCH ×2 (00:23→02:09)
[2023-08-20] MEDS: Insulin Regular 300 UNITS/3 ML VIAL IVP SCH (00:23)
[2023-08-20] MEDS: Furosemide 40 MG (4 mL) VIAL SLOW IVP SCH ×2 (00:29→06:05)
[2023-08-20] MEDS: cefTRIAXone\\ROCEPHIN 1 GM in Sodium Chloride 0.9% 100 ML IVPB SCH (02:03)
[2023-08-20] MEDS ORDERED: Electrolyte Replacement Protocol 1 EACH FS SCH (03:00)
[2023-08-20 03:56] LABS: #Monocytes 0.5 thou/uL (0.11-0.59); #Neutrophils 4.7 thou/uL (1.40-6.50); %Basophils 0.2 % (0.0-1.0); %Lymphocytes 14.4 % (21.0-51.0); %Monocytes 8.5 % (0.0-10.0); %Neutrophils 76.7 % (42.0-75.0); Hematocrit 40.8 % (36.0-47.0); Hemoglobin 13.1 g/dL (12.0-16.0); Mean Corpuscular HGB CONC 32.1 g/dL (32.0-36.0); Mean Corpuscular Hemoglobin 30.3 pg (27.0-31.0); Mean Corpuscular Volume 94.4 fl (78.0-98.0); Mean Platelet Volume 9.6 fL (7.4-10.4); Platelet Count 235 10x3/uL (130-400); Red Blood Cell (RBC) Count 4.32 mill/uL (4.20-5.40); White Blood Cell (WBC) Count 6.1 10x3/uL (4.8-10.8)
[2023-08-20 04:19] LABS: Critical Call Chem-Lactate NUR.SC14 @0418; Lactic Acid 5.2 mmol/L (0.5-2.2)
[2023-08-20 04:55] LABS: Hemoglobin A1c 9.8 % (4.0-6.0)
[2023-08-20 05:40] LABS: Actual Bicarbonate (HCO3v) 35.1 mEq/L (22-28); Calcium, Ionized (venous) 1.04 mmol/L (1.16-1.32); Chloride (VBG) 91 mmol/L (98-106); Hematocrit-VBG 42 % (36.0-47.0); Hemoglobin (Hb) 14.3 g/dL (11.7-16.1); Potassium (VBG) 3.78 mmol/L (3.70-5.30); Sodium 136 mmol/L (133-146); pH (venous) 7.346 (7.32-7.43)
[2023-08-20 05:56] LABS: Anion Gap 16 mmol/L (10-20); BUN (Urea Nitrogen) 25 mg/dL (9.8-20.1); Calc. Creatinine Clearance 63 mL/min (70-130); Calcium 8.9 mg/dL (7.8-10.44); Carbon Dioxide 28 mmol/L (23-31); Chloride 94 mmol/L (98-107); Estimated GFR 44; Potassium 3.8 mmol/L (3.5-5.1); Sodium 134 mmol/L (136-145)
[2023-08-20 06:02] LABS: Critical Call Chemistry NUR.PM8 @0602; Glucose 407 mg/dL (83-110)
[2023-08-20] MEDS: HumaLOG 300 UNITS/3 ML VIAL SC PRN (06:04)
[2023-08-20] MEDS: Magnesium 2 GM/50 ML(in water) 2 GM in Premix 1 BAG IVPB SCH (08:14)
[2023-08-20] MEDS: methylPREDNISolone Sod Succ/PF 125 MG/2 ML VIAL IVP SCH ×2 (08:15→14:31)
[2023-08-20] MEDS: HumaLOG 300 UNITS/3 ML VIAL SC SCH (08:19)
[2023-08-20] MEDS: Insulin Glargine 30 UNITS/0.3 ML VIAL SC SCH (08:20)
[2023-08-20] MEDS: Clopidogrel Bisulfate 75 MG TAB PO SCH (08:22)
[2023-08-20] MEDS: Calcium Carbonate 600 MG + Vit D TAB PO SCH (08:22)
[2023-08-20] MEDS: Ezetimibe 10 MG TAB PO SCH (08:22)
[2023-08-20] MEDS: Torsemide 100 MG TAB PO SCH (08:22)
[2023-08-20] MEDS: Enoxaparin 40 MG (0.4 mL) SYRINGE SC SCH (08:27)
[2023-08-20 11:07] LABS: Lactic Acid 3.6 mmol/L (0.5-2.2)
[2023-08-21] MEDS: Oseltamivir 6 MG/ML ORAL SUSP PO SCH (01:22)
[2023-08-21] MEDS: Acetaminophen 325 MG TAB PO PRN (05:19)
[2023-08-21 07:29] LABS: #Monocytes 0.5 thou/uL (0.11-0.59); #Neutrophils 10.9 thou/uL (1.40-6.50); %Basophils 0.1 % (0.0-1.0); %Lymphocytes 7.7 % (21.0-51.0); %Monocytes 3.6 % (0.0-10.0); %Neutrophils 88.4 % (42.0-75.0); Hematocrit 41.5 % (36.0-47.0); Hemoglobin 13.6 g/dL (12.0-16.0); Mean Corpuscular HGB CONC 32.8 g/dL (32.0-36.0); Mean Corpuscular Hemoglobin 30.4 pg (27.0-31.0); Mean Corpuscular Volume 92.8 fl (78.0-98.0); Mean Platelet Volume 9.6 fL (7.4-10.4); Platelet Count 269 10x3/uL (130-400); RBC Distribution Width 13.2 % (11.5-14.5); Red Blood Cell (RBC) Count 4.47 mill/uL (4.20-5.40); White Blood Cell (WBC) Count 12.4 10x3/uL (4.8-10.8)
[2023-08-21 08:12] LABS: BUN (Urea Nitrogen) 34 mg/dL (9.8-20.1); CRP (Inflammatory) 3.27 mg/dL (= or < 0.5); Calc. Creatinine Clearance 63 mL/min (70-130); Calcium 8.9 mg/dL (7.8-10.44); Estimated GFR 43; Glucose 194 mg/dL (83-110)
[2023-08-21 08:13] LABS: Carbon Dioxide Greater than 37 mmol/L (23-31); Chloride 87 mmol/L (98-107); Potassium 3.2 mmol/L (3.5-5.1); Sodium 137 mmol/L (136-145)
[2023-08-21 08:15] LABS: Troponin I 0.018 ng/mL (< 0.028)
[2023-08-21] MEDS: Potassium Bicarbonate/Cit Ac 20 MEQ TAB PO SCH ×2 (09:23→13:12)
[2023-08-21 09:40] LABS: Free T4 (Free Thyroxine) 1.14 ng/dL (0.70-1.48)
[2023-08-21] MEDS ORDERED: Guaifenesin DM 100-10/5 ML UDCUP PO PRN (09:51)
[2023-08-21] MEDS: HumaLOG 300 UNITS/3 ML VIAL SC SCH (13:14)
[2023-08-21] MEDS: methylPREDNISolone Sod Succ/PF 125 MG/2 ML VIAL IVP SCH (21:52)
[2023-08-22 06:27] LABS: #Monocytes 0.3 thou/uL (0.11-0.59); #Neutrophils 9.8 thou/uL (1.40-6.50); %Basophils 0.2 % (0.0-1.0); %Lymphocytes 8.6 % (21.0-51.0); %Monocytes 2.9 % (0.0-10.0); %Neutrophils 87.9 % (42.0-75.0); Hematocrit 40.8 % (36.0-47.0); Hemoglobin 13.4 g/dL (12.0-16.0); Mean Corpuscular HGB CONC 32.8 g/dL (32.0-36.0); Mean Corpuscular Hemoglobin 29.9 pg (27.0-31.0); Mean Corpuscular Volume 91.1 fl (78.0-98.0); Platelet Count 292 10x3/uL (130-400); RBC Distribution Width 13.3 % (11.5-14.5); Red Blood Cell (RBC) Count 4.48 mill/uL (4.20-5.40); White Blood Cell (WBC) Count 11.2 10x3/uL (4.8-10.8)
[2023-08-22 06:50] LABS: BUN (Urea Nitrogen) 40 mg/dL (9.8-20.1); Calc. Creatinine Clearance 68 mL/min (70-130); Calcium 9.3 mg/dL (7.8-10.44); Estimated GFR 48; Glucose 95 mg/dL (83-110)
[2023-08-22 06:59] LABS: Chloride 88 mmol/L (98-107); Potassium 3.3 mmol/L (3.5-5.1); Sodium 139 mmol/L (136-145)
[2023-08-22 07:02] LABS: Anion Gap 19 mmol/L (10-20); Carbon Dioxide 35 mmol/L (23-31)
[2023-08-22] MEDS: Potassium Bicarbonate/Cit Ac 20 MEQ TAB PER TUBE SCH (08:52)
[2023-08-22] MEDS: Polyethylene Glycol 3350 17 GM Packet PO SCH (14:00)
[2023-08-22] MEDS: Ipratropium/Albuterol 3 ML NEB NEB SCH (14:32)
[2023-08-22] MEDS: Senokot S 8.6-50 MG TAB PO SCH (22:35)
[2023-08-22] MEDS: Insulin Glargine 30 UNITS/0.3 ML VIAL SC SCH (22:43)
[2023-08-22] MEDS: Cefuroxime 250 MG TAB PO SCH (22:48)
[2023-08-23 06:13] LABS: Hematocrit 41.8 % (36.0-47.0); Hemoglobin 13.5 g/dL (12.0-16.0); Manual Diff?? YES; Mean Corpuscular HGB CONC 32.3 g/dL (32.0-36.0); Mean Corpuscular Hemoglobin 30.1 pg (27.0-31.0); Mean Corpuscular Volume 93.1 fl (78.0-98.0); Mean Platelet Volume 9.9 fL (7.4-10.4); Platelet Count 267 10x3/uL (130-400); RBC Distribution Width 13.9 % (11.5-14.5); Red Blood Cell (RBC) Count 4.49 mill/uL (4.20-5.40)
[2023-08-23 06:15] LABS: Delete Auto Diff?? YES
[2023-08-23 06:33] LABS: BUN (Urea Nitrogen) 34 mg/dL (9.8-20.1); Calc. Creatinine Clearance 80 mL/min (70-130); Calcium 9.7 mg/dL (7.8-10.44); Estimated GFR 58; Glucose 96 mg/dL (83-110)
[2023-08-23 06:41] LABS: CellaVision Operator ID lab.sh2; Lymphocytes 10 % (21-51); Monocytes 1 % (0-10); Neutrophil 89 % (42-75); Platelet Adequacy Comment Platelets Normal; Polychromasia SLIGHT = 2-3 cells HPF (0-2); Total Cell Count 100
[2023-08-23 06:42] LABS: Anion Gap 15 mmol/L (10-20); Carbon Dioxide 39 mmol/L (23-31); Chloride 90 mmol/L (98-107); Potassium 3.8 mmol/L (3.5-5.1); Sodium 140 mmol/L (136-145)
[2023-08-23] MEDS: Potassium Chloride 20 MEQ TAB PO SCH (08:54)
[2023-08-23] MEDS: Insulin Glargine 30 UNITS/0.3 ML VIAL SC SCH (08:57)
[2023-08-23] MEDS ORDERED: Lactulose 20 GM (30 mL) UDCUP PO PRN (10:07)
[2023-08-23] MEDS ORDERED: Albuterol 2.5 MG (3 mL) NEB NEB PRN (10:08)
[2023-08-23] MEDS: Polyethylene Glycol 3350 17 GM Packet PO SCH (10:21)
[2023-08-23] MEDS: methylPREDNISolone Sod Succ 40 MG VIAL IVP SCH (22:50)
[2023-08-24 06:18] LABS: Hematocrit 40.8 % (36.0-47.0); Hemoglobin 13.6 g/dL (12.0-16.0); Manual Diff?? YES; Mean Corpuscular HGB CONC 33.3 g/dL (32.0-36.0); Mean Corpuscular Hemoglobin 30.8 pg (27.0-31.0); Mean Corpuscular Volume 92.5 fl (78.0-98.0); Mean Platelet Volume 10.1 fL (7.4-10.4); Platelet Count 281 10x3/uL (130-400); RBC Distribution Width 13.8 % (11.5-14.5); Red Blood Cell (RBC) Count 4.41 mill/uL (4.20-5.40); White Blood Cell (WBC) Count 9.7 10x3/uL (4.8-10.8)
[2023-08-24 06:19] LABS: Delete Auto Diff?? YES
[2023-08-24 06:44] LABS: Band 3 % (5-11); CellaVision Operator ID LAB.CLH1; Lymphocytes 8 % (21-51); Monocytes 3 % (0-10); Neutrophil 82 % (42-75); Platelet Adequacy Comment Platelets Normal; Polychromasia SLIGHT = 2-3 cells HPF (0-2); Reactive Lymphocytes 4 % (0-10); Total Cell Count 99
[2023-08-24 06:45] LABS: Anion Gap 14 mmol/L (10-20); BUN (Urea Nitrogen) 28 mg/dL (9.8-20.1); Calc. Creatinine Clearance 91 mL/min (70-130); Calcium 9.8 mg/dL (7.8-10.44); Carbon Dioxide 35 mmol/L (23-31); Chloride 92 mmol/L (98-107); Estimated GFR 67; Glucose 111 mg/dL (83-110); Potassium 4.1 mmol/L (3.5-5.1); Sodium 137 mmol/L (136-145)
[2023-08-24] MEDS: Polyethylene Glycol 3350 17 GM Packet PO SCH (09:30)
[2023-08-24] MEDS: Magnesium Sulfate 3 GM in Sodium Chloride 0.9% 100 ML IVPB SCH (13:21)
[2023-08-24] MEDS: Insulin Glargine 30 UNITS/0.3 ML VIAL SC SCH (21:26)
[2023-08-25 05:56] LABS: Anion Gap 15 mmol/L (10-20); BUN (Urea Nitrogen) 27 mg/dL (9.8-20.1); Calc. Creatinine Clearance 88 mL/min (70-130); Calcium 9.4 mg/dL (7.8-10.44); Carbon Dioxide 34 mmol/L (23-31); Chloride 94 mmol/L (98-107); Estimated GFR 65; Glucose 126 mg/dL (83-110); Potassium 4.5 mmol/L (3.5-5.1); Sodium 138 mmol/L (136-145)
[2023-08-25 12:38] VITALS: BP 159/72; TEMP 97.6
== END 2023-08-25 12:27 | disposition home or self-care (01) | DRG 871 ==
LOC: ERS 11:57 → SUATTDRO 11:57 → 2SW 14:32 → OBSVTOIN 08-20 09:55 → T4-A 08-24 20:55
PROVIDERS: ADMIT Family Medicine; ATTEND Hospitalist
DX: A41.9 Sepsis, unspecified organism (principal); J96.21 Acute and chronic respiratory failure with hypoxia; J44.1 Chronic obstructive pulmonary disease with (acute) exacerbation; N17.9 Acute kidney failure, unspecified; N30.00 Acute cystitis without hematuria; J10.1 Influenza due to other identified influenza virus with other respiratory manifestations; E11.9 Type 2 diabetes mellitus without complications; E78.5 Hyperlipidemia, unspecified; I50.9 Heart failure, unspecified; E78.00 Pure hypercholesterolemia, unspecified; K21.9 Gastro-esophageal reflux disease without esophagitis; I25.10 Atherosclerotic heart disease of native coronary artery without angina pectoris; M16.12 Unilateral primary osteoarthritis, left hip; E66.01 Morbid (severe) obesity due to excess calories; I48.91 Unspecified atrial fibrillation; Z86.73 Personal history of transient ischemic attack (TIA), and cerebral infarction without residual deficits; Z90.49 Acquired absence of other specified parts of digestive tract; Z98.890 Other specified postprocedural states; Z87.891 Personal history of nicotine dependence; Z88.1 Allergy status to other antibiotic agents; Z91.040 Latex allergy status; Z85.51 Personal history of malignant neoplasm of bladder; Z88.5 Allergy status to narcotic agent; Z91.09 Other allergy status, other than to drugs and biological substances; Z79.4 Long term (current) use of insulin; Z79.899 Other long term (current) drug therapy; Z68.35 Body mass index [BMI] 35.0-35.9, adult; Z98.51 Tubal ligation status; Z11.52 Encounter for screening for COVID-19
CPT/HCPCS: 36415; 36416; 70450; 71045; 71046; 80048; 80053; 81001; 82805; 83036; 83605; 83735; 83880; 84439; 84443; 84481; 84484; 85025; 85610; 85730; 86140; 87040; 87086; 93005; 94640; 94760; 96361; 96365; 96366; 96367; 96372; 96375; 96376; 97139; G0378; J0456; J0692; J0696; J1650; J1815; J1885; J1940; J2920; J2930; J3370; J3475; J3490; J7030; J7050; J7620; J7626

== ENCOUNTER 2023-09-07 11:24 | Outpatient (CLI) | payer MEDICARE, MEDICAID | END 2023-09-07 11:25 | disposition home or self-care (01) | LOC: RAD 11:24 | PROVIDERS: ATTEND Internal Medicine Critical Care Medicine | DX: R06.00 Dyspnea, unspecified (principal) | CPT/HCPCS: 71046 ==

== ENCOUNTER 2024-04-24 10:27 | Outpatient (CLI) | payer MEDICARE, MEDICAID | END 2024-04-24 10:28 | disposition home or self-care (01) | LOC: RAD 10:27 | PROVIDERS: ATTEND Internal Medicine Critical Care Medicine | DX: R06.00 Dyspnea, unspecified (principal) | CPT/HCPCS: 71046 ==

== ENCOUNTER 2024-05-06 13:54 | Inpatient (IN) | payer MEDICARE, MEDICAID ==
[2024-05-06 14:29] LABS: #Basophils 0.05 10x3/uL (0.0-0.2); %Basophils 0.5 % (0.0-1.0); %Eosinophils 2.1 % (0.0-10.0); %Lymphocytes 19.7 % (21.0-51.0); %Monocytes 6.7 % (0.0-10.0); %Neutrophils 70.7 % (42.0-75.0); Hematocrit 41.8 % (36.0-47.0); Hemoglobin 13.9 g/dL (12.0-16.0); Mean Corpuscular HGB CONC 33.3 g/dL (32.0-36.0); Mean Corpuscular Hemoglobin 30.5 pg (27.0-31.0); Mean Corpuscular Volume 91.9 fL (78.0-98.0); Mean Platelet Volume 9.8 fL (7.4-10.4); Platelet Count 242 10x3/uL (130-400); RBC Distribution Width 12.5 % (11.5-14.5); Red Blood Cell (RBC) Count 4.55 mill/uL (4.20-5.40)
[2024-05-06 14:52] LABS: ALT (SGPT) 19 U/L (8-55); AST (SGOT) 21 U/L (5-34); Albumin 3.4 g/dL (3.4-4.8); Alkaline Phosphatase 83 U/L (40-110); Anion Gap 13 mmol/L (10-20); BUN (Urea Nitrogen) 24 mg/dL (9.8-20.1); Bilirubin, Total 0.3 mg/dL (0.2-1.2); Calc. Creatinine Clearance 0 mL/min (70-130); Calcium 9.6 mg/dL (7.8-10.44); Carbon Dioxide 37 mmol/L (23-31); Chloride 90 mmol/L (98-107); Estimated GFR 52; Globulin 3.5 g/dL (2.4-3.5); Glucose 280 mg/dL (83-110); Magnesium 1.7 mg/dL (1.6-2.6); Potassium 4.1 mmol/L (3.5-5.1); Protein, Total 6.9 g/dL (5.8-8.1); Sodium 136 mmol/L (136-145)
[2024-05-06 15:01] LABS: Troponin I Less than 0.010 ng/mL (< 0.028)
[2024-05-06] MEDS ORDERED: Albuterol 2.5 MG (3 mL) NEB NEB PRN (16:56)
[2024-05-06] MEDS ORDERED: Guaifenesin DM 100-10/5 ML UDCUP PO PRN (16:56)
[2024-05-06] MEDS ORDERED: methylPREDNISolone Sod Succ/PF 125 MG/2 ML VIAL ONE (16:59)
[2024-05-06] MEDS ORDERED: LevoFLOXacin 750 mg/D5W 150 ml Premix Bag ONE (16:59)
[2024-05-06] MEDS ORDERED: Dextrose 50% Abboject 50 ML SYRINGE SLOW IVP PRN (17:38)
[2024-05-06] MEDS ORDERED: Dextrose 5% in Water 1,000 ML IV PRN (17:38)
[2024-05-06] MEDS ORDERED: Glucagon 1 MG/ML KIT IM PRN (17:38)
[2024-05-06 17:55] VITALS: BMI 34.9
[2024-05-06] MEDS: Ipratropium/Albuterol 3 ML NEB NEB SCH (18:32)
[2024-05-06] MEDS: Acetaminophen 325 MG TAB PO PRN (19:50)
[2024-05-06] MEDS: Insulin Regular, Human 100 UNIT/ML 10 ML VIAL SC PRN (19:50)
[2024-05-06] MEDS: Montelukast Sodium 10 mg Tablet PO SCH (19:50)
[2024-05-06] MEDS ORDERED: Doxycycline 100 MG CAP PO SCH (21:00)
[2024-05-06] MEDS ORDERED: Famotidine/PF 20 mg/2ml Vial SLOW IVP SCH (21:00)
[2024-05-06] MEDS: methylPREDNISolone Sod Succ 40 MG VIAL IVP SCH (23:05)
[2024-05-07 05:29] LABS: #Basophils Less than 0.03 10x3/uL (0.0-0.2); #Eosinophils Less than 0.03 10x3/uL (0.0-0.7); %Basophils 0.1 % (0.0-1.0); %Lymphocytes 6.2 % (21.0-51.0); %Monocytes 0.6 % (0.0-10.0); %Neutrophils 92.7 % (42.0-75.0); Hematocrit 39.1 % (36.0-47.0); Hemoglobin 12.9 g/dL (12.0-16.0); Mean Corpuscular Hemoglobin 29.9 pg (27.0-31.0); Mean Corpuscular Volume 90.7 fL (78.0-98.0); Mean Platelet Volume 10.5 fL (7.4-10.4); Platelet Count 270 10x3/uL (130-400); RBC Distribution Width 12.1 % (11.5-14.5); Red Blood Cell (RBC) Count 4.31 mill/uL (4.20-5.40)
[2024-05-07 06:51] LABS: Anion Gap 14 mmol/L (10-20); BUN (Urea Nitrogen) 23 mg/dL (9.8-20.1); Calc. Creatinine Clearance 64 mL/min (70-130); Calcium 9.4 mg/dL (7.8-10.44); Carbon Dioxide 32 mmol/L (23-31); Chloride 90 mmol/L (98-107); Estimated GFR 46; Glucose 432 mg/dL (83-110); Potassium 3.8 mmol/L (3.5-5.1); Sodium 132 mmol/L (136-145)
[2024-05-07] MEDS: Insulin Lispro 100 UNIT/ML 10 ML VIAL SC SCH (08:54)
[2024-05-07] MEDS: Pantoprazole DR 40 MG TAB PO SCH (08:55)
[2024-05-07] MEDS: Enoxaparin 40 MG (0.4 mL) SYRINGE SC SCH (08:55)
[2024-05-07] MEDS: Calcium Carbonate 600 MG + Vit D TAB PO SCH (08:55)
[2024-05-07] MEDS: Loratadine 10 MG TAB PO SCH (08:55)
[2024-05-07] MEDS: Insulin Glargine 30 UNITS/0.3 ML VIAL SC SCH (08:55)
[2024-05-07] MEDS: LevoFLOXacin 250 mg/D5W 250 MG in Premix 1 BAG IVPB SCH (14:06)
[2024-05-07] MEDS: methylPREDNISolone Sod Succ 40 MG VIAL IVP SCH (19:53)
[2024-05-08 08:52] LABS: Anion Gap 17 mmol/L (10-20); BUN (Urea Nitrogen) 25 mg/dL (9.8-20.1); Calc. Creatinine Clearance 65 mL/min (70-130); Calcium 9.9 mg/dL (7.8-10.44); Carbon Dioxide 31 mmol/L (23-31); Chloride 91 mmol/L (98-107); Estimated GFR 47; Glucose 323 mg/dL (83-110); Sodium 135 mmol/L (136-145)
[2024-05-08] MEDS: FLU (Fluad Triv) TS24-25 (65UP)/MF59C/PF 45 MCG/0.5 ML Syringe IM ONE (08:53)
[2024-05-08 15:30] VITALS: BMI 34.9
[2024-05-08] MEDS: LevoFLOXacin 250 MG TAB PO SCH (15:49)
[2024-05-08] MEDS: Budesonide 0.5 MG/2 ML NEB INH SCH (20:32)
[2024-05-09 07:57] VITALS: BP 154/82; TEMP 98.3
== END 2024-05-09 12:44 | disposition home health service (06) | DRG 193 ==
LOC: ERS 13:54 → T4-A 16:47 → OBSVTOIN 05-07 11:49
PROVIDERS: ADMIT Hospitalist; ATTEND Internal Medicine
DX: J18.9 Pneumonia, unspecified organism (principal); J96.21 Acute and chronic respiratory failure with hypoxia; J44.1 Chronic obstructive pulmonary disease with (acute) exacerbation; I50.32 Chronic diastolic (congestive) heart failure; K21.9 Gastro-esophageal reflux disease without esophagitis; Z91.040 Latex allergy status; Z88.8 Allergy status to other drugs, medicaments and biological substances; Z91.048 Other nonmedicinal substance allergy status; E11.9 Type 2 diabetes mellitus without complications; I48.91 Unspecified atrial fibrillation; Z98.51 Tubal ligation status; Z90.49 Acquired absence of other specified parts of digestive tract; Z79.899 Other long term (current) drug therapy; E78.00 Pure hypercholesterolemia, unspecified; Z87.891 Personal history of nicotine dependence; Z79.4 Long term (current) use of insulin
CPT/HCPCS: 36415; 36416; 71045; 80048; 80053; 83735; 83880; 84484; 85025; 87428; 90653; 93005; 94640; 96372; 96374; 96375; 96376; 97139; G0378; J1650; J1815; J1956; J2919; J7620; J7626

== ENCOUNTER 2025-03-14 11:41 | Emergency (ER) | payer MEDICARE, OTHER ==
[2025-03-14 14:22] LABS: #Basophils 0.05 10x3/uL (0.0-0.2); #Eosinophils 0.16 10x3/uL (0.0-0.7); #Monocytes 0.70 10x3/uL (0.11-0.59); #Neutrophils 4.70 10x3/uL (1.40-6.50); %Basophils 0.5 % (0.0-1.0); %Eosinophils 1.7 % (0.0-10.0); %Lymphocytes 38.6 % (21.0-51.0); %Monocytes 7.6 % (0.0-10.0); %Neutrophils 51.4 % (42.0-75.0); Hematocrit 37.8 % (36.0-47.0); Hemoglobin 11.2 g/dL (12.0-16.0); Mean Corpuscular Hemoglobin 29.1 pg (27.0-31.0); Mean Corpuscular Volume 98.2 fL (78.0-98.0); Platelet Count 276 10x3/uL (130-400); Red Blood Cell (RBC) Count 3.85 mill/uL (4.20-5.40); White Blood Cell (WBC) Count 9.17 10x3/uL (4.8-10.8)
[2025-03-14 14:37] LABS: ALT (SGPT) 23 U/L (Less than 34); AST (SGOT) 28 U/L (11-34); Albumin 3.2 g/dL (3.1-4.5); Alkaline Phosphatase 75 U/L (40-110); Anion Gap 13 mmol/L (10-20); BUN (Urea Nitrogen) 12 mg/dL (9.8-20.1); Bilirubin, Total 0.5 mg/dL (0.3-1.2); Calc. Creatinine Clearance 0 mL/min (70-130); Calcium 9.3 mg/dL (7.8-10.44); Carbon Dioxide 32 mmol/L (23-31); Chloride 98 mmol/L (98-107); Globulin 3.1 g/dL (2.4-3.5); Glucose 83 mg/dL (83-110); Potassium 4.3 mmol/L (3.5-5.1); Sodium 139 mmol/L (136-145)
== END 2025-03-14 16:00 | disposition home or self-care (01) ==
LOC: ERS 11:41
DX: R60.9 Edema, unspecified (principal); E11.9 Type 2 diabetes mellitus without complications; E78.5 Hyperlipidemia, unspecified; I50.9 Heart failure, unspecified; J44.9 Chronic obstructive pulmonary disease, unspecified; K21.9 Gastro-esophageal reflux disease without esophagitis; Z87.891 Personal history of nicotine dependence; Z79.4 Long term (current) use of insulin; Z79.899 Other long term (current) drug therapy
CPT/HCPCS: 36415; 71046; 80053; 83880; 84484; 85025; 87428; 93005

== ENCOUNTER 2025-03-23 08:12 | Emergency (ER) | payer MEDICARE, OTHER ==
[2025-03-23 08:47] LABS: #Basophils Less than 0.03 10x3/uL (0.0-0.2); #Eosinophils 0.12 10x3/uL (0.0-0.7); #Monocytes 0.71 10x3/uL (0.11-0.59); #Neutrophils 4.97 10x3/uL (1.40-6.50); %Basophils 0.2 % (0.0-1.0); %Eosinophils 1.5 % (0.0-10.0); %Lymphocytes 27.1 % (21.0-51.0); %Monocytes 8.9 % (0.0-10.0); %Neutrophils 62.1 % (42.0-75.0); Hematocrit 38.5 % (36.0-47.0); Hemoglobin 11.8 g/dL (12.0-16.0); Mean Corpuscular Hemoglobin 28.9 pg (27.0-31.0); Mean Corpuscular Volume 94.1 fL (78.0-98.0); Platelet Count 265 10x3/uL (130-400); Red Blood Cell (RBC) Count 4.09 mill/uL (4.20-5.40); White Blood Cell (WBC) Count 8.01 10x3/uL (4.8-10.8)
[2025-03-23 09:03] LABS: INR-International Normal Ratio 1.0; Prothrombin Time 13.3 sec (12.0-14.7)
[2025-03-23 09:04] LABS: PTT 32.2 sec (22.9-36.1)
[2025-03-23 09:13] LABS: ALT (SGPT) 16 U/L (Less than 34); AST (SGOT) 27 U/L (11-34); Albumin 3.4 g/dL (3.1-4.5); Alkaline Phosphatase 86 U/L (40-110); Anion Gap 14 mmol/L (10-20); BUN (Urea Nitrogen) 22 mg/dL (9.8-20.1); Bilirubin, Total 0.8 mg/dL (0.3-1.2); Calc. Creatinine Clearance 0 mL/min (70-130); Calcium 9.9 mg/dL (7.8-10.44); Carbon Dioxide 40 mmol/L (23-31); Chloride 89 mmol/L (98-107); Globulin 3.6 g/dL (2.4-3.5); Glucose 238 mg/dL (83-110); Potassium 3.9 mmol/L (3.5-5.1); Sodium 139 mmol/L (136-145)
[2025-03-23 09:45] LABS: CK (CPK) 233 U/L (29-168)
[2025-03-23 10:19] LABS: Actual Bicarbonate (HCO3a) 40.5 mEq/L (22-28); Analyzer IN Cardio ER; Base Excess (BEa) 12.4 mEq/L (-2.0 to +3.0); Calcium, Ionized (arterial) 1.16 mmol/L (1.12-1.30); Hematocrit-ABG 35 % (36.0-47.0); Hemoglobin (Hb) 11.9 g/dL (12.0-16.0); Potassium - ABG Lab 3.57 mmol/L (3.70-5.30); pH, Arterial 7.368 (7.35-7.45)
[2025-03-23 10:23] LABS: CO2 Tension 72.0 mmHg (35.0-45.0); O2 Tension (PaO2), arterial 56.1 mmHg (> 60.0)
[2025-03-23 10:24] LABS: ALV-art Gradient 82.060 mmHg (0-20); Puncture Site Right Radial artery
== END 2025-03-23 13:25 | disposition home or self-care (01) ==
LOC: ERS 08:12
DX: M25.551 Pain in right hip (principal); J44.9 Chronic obstructive pulmonary disease, unspecified; E11.9 Type 2 diabetes mellitus without complications; I50.9 Heart failure, unspecified; W07.XXXA Fall from chair, initial encounter; Z87.891 Personal history of nicotine dependence
CPT/HCPCS: 36600; 70450; 71045; 80053; 82550; 82805; 83605; 83880; 84484; 85025; 85610; 85730; 93005; 94640 ×2; 94760; J2270; 36415; 96374

== ENCOUNTER 2025-04-08 10:26 | Inpatient (IN) | payer MEDICARE, MEDICAID ==
[2025-04-08 10:54] LABS: #Basophils 0.05 10x3/uL (0.0-0.2); #Eosinophils 0.16 10x3/uL (0.0-0.7); #Monocytes 0.52 10x3/uL (0.11-0.59); #Neutrophils 4.83 10x3/uL (1.40-6.50); %Basophils 0.7 % (0.0-1.0); %Eosinophils 2.2 % (0.0-10.0); %Lymphocytes 24.9 % (21.0-51.0); %Monocytes 7.0 % (0.0-10.0); %Neutrophils 64.9 % (42.0-75.0); Hematocrit 38.9 % (36.0-47.0); Hemoglobin 11.7 g/dL (12.0-16.0); Mean Corpuscular Hemoglobin 29.5 pg (27.0-31.0); Mean Corpuscular Volume 98.0 fL (78.0-98.0); Platelet Count 274 10x3/uL (130-400); Red Blood Cell (RBC) Count 3.97 mill/uL (4.20-5.40); White Blood Cell (WBC) Count 7.43 10x3/uL (4.8-10.8)
[2025-04-08] MEDS ORDERED: Magnesium 2 GM/50 ML BAG (IN WATER) ONE (11:07)
[2025-04-08 11:32] LABS: Magnesium 1.5 mg/dL (1.6-2.6)
[2025-04-08 11:40] LABS: Actual Bicarbonate (HCO3a) 43.8 mEq/L (22-28); Analyzer IN Cardio ER; Base Excess (BEa) 13.2 mEq/L (-2.0 to +3.0); Calcium, Ionized (arterial) 1.23 mmol/L (1.12-1.30); Hematocrit-ABG 35 % (36.0-47.0); Hemoglobin (Hb) 11.9 g/dL (12.0-16.0); O2 Tension (PaO2), arterial 81.2 mmHg (> 60.0); Potassium - ABG Lab 4.41 mmol/L (3.70-5.30); pH, Arterial 7.273 (7.35-7.45)
[2025-04-08 11:51] LABS: CO2 Tension 96.9 mmHg (35.0-45.0)
[2025-04-08 11:52] LABS: ALV-art Gradient 25.835 mmHg (0-20); Puncture Site Right Radial artery
[2025-04-08 11:54] LABS: Albumin 3.3 g/dL (3.1-4.5); Calcium 9.5 mg/dL (7.8-10.44); Chloride 92 mmol/L (98-107); Sodium 140 mmol/L (136-145)
[2025-04-08 11:55] LABS: Globulin 3.5 g/dL (2.4-3.5); Glucose 255 mg/dL (83-110)
[2025-04-08 11:56] LABS: Anion Gap 19 mmol/L (10-20); Carbon Dioxide 35 mmol/L (23-31); Potassium 5.6 mmol/L (3.5-5.1)
[2025-04-08 11:58] LABS: Alkaline Phosphatase 99 U/L (40-110); Bilirubin, Total 0.4 mg/dL (0.3-1.2)
[2025-04-08 11:59] LABS: BUN (Urea Nitrogen) 12 mg/dL (9.8-20.1); Calc. Creatinine Clearance 0 mL/min (70-130)
[2025-04-08 12:01] LABS: ALT (SGPT) 17 U/L (Less than 34)
[2025-04-08 12:06] LABS: AST (SGOT) 27 U/L (11-34)
[2025-04-08 13:48] LABS: Actual Bicarbonate (HCO3a) 43.0 mEq/L (22-28); Analyzer IN Cardio ER; Base Excess (BEa) 13.6 mEq/L (-2.0 to +3.0); Calcium, Ionized (arterial) 1.23 mmol/L (1.12-1.30); Hematocrit-ABG 37 % (36.0-47.0); Hemoglobin (Hb) 12.6 g/dL (12.0-16.0); O2 Tension (PaO2), arterial 65.2 mmHg (> 60.0); Potassium - ABG Lab 4.55 mmol/L (3.70-5.30); pH, Arterial 7.336 (7.35-7.45)
[2025-04-08] MEDS ORDERED: Guaifenesin DM 100-10/5 ML UDCUP PO PRN (13:53)
[2025-04-08 13:55] LABS: CO2 Tension 82.3 mmHg (35.0-45.0)
[2025-04-08 13:56] LABS: ALV-art Gradient 81.475 mmHg (0-20); Puncture Site Right Radial artery
[2025-04-08] MEDS ORDERED: Dextrose 50% Abboject 50 ML SYRINGE SLOW IVP PRN (13:57)
[2025-04-08] MEDS ORDERED: Glucagon 1 MG/ML KIT IM PRN (13:57)
[2025-04-08] MEDS ORDERED: Electrolyte Replacement Protocol 1 EACH FS SCH (14:00)
[2025-04-08 16:48] LABS: Base Excess 14.8 mEq/L (-2.0 to +3.0); Calcium, Ionized (venous) 1.07 mmol/L (1.16-1.32); Chloride (VBG) 88 mmol/L (98-106); Hematocrit-VBG 38 % (36.0-47.0); Hemoglobin (Hb) 12.9 g/dL (11.7-16.1); Potassium (VBG) 4.42 mmol/L (3.70-5.30); Sodium 137 mmol/L (133-146)
[2025-04-08 16:51] LABS: Actual Bicarbonate (HCO3v) 40.1 mEq/L (22-28)
[2025-04-08 17:13] LABS: Anion Gap 19 mmol/L (10-20); BUN (Urea Nitrogen) 13 mg/dL (9.8-20.1); Calc. Creatinine Clearance 0 mL/min (70-130); Calcium 9.9 mg/dL (7.8-10.44); Carbon Dioxide 37 mmol/L (23-31); Chloride 88 mmol/L (98-107); Glucose 347 mg/dL (83-110); Potassium 4.7 mmol/L (3.5-5.1); Sodium 139 mmol/L (136-145)
[2025-04-08] MEDS ORDERED: Insulin Glargine 30 UNITS/0.3 ML VIAL SC SCH (21:00)
[2025-04-08] MEDS: Famotidine/PF 20 mg/2ml Vial SLOW IVP SCH (21:00)
[2025-04-08 21:01] VITALS: BMI 31.9
[2025-04-08] MEDS: Famotidine 20 MG TAB PO SCH (21:10)
[2025-04-08] MEDS: Insulin Glargine 30 UNITS/0.3 ML VIAL SC SCH (21:12)
[2025-04-08] MEDS: Azithromycin 500 MG in Sodium Chloride 0.9% 250 ML 250 ML IVPB SCH (21:12)
[2025-04-09] MEDS: Transdermal Patch Removal TOP SCH (04:00)
[2025-04-09 04:37] LABS: #Basophils Less than 0.03 10x3/uL (0.0-0.2); #Eosinophils Less than 0.03 10x3/uL (0.0-0.7); #Monocytes 0.13 10x3/uL (0.11-0.59); #Neutrophils 7.05 10x3/uL (1.40-6.50); %Basophils 0.1 % (0.0-1.0); %Eosinophils 0.0 % (0.0-10.0); %Lymphocytes 10.2 % (21.0-51.0); %Monocytes 1.6 % (0.0-10.0); %Neutrophils 87.7 % (42.0-75.0); Hematocrit 37.5 % (36.0-47.0); Hemoglobin 11.9 g/dL (12.0-16.0); Mean Corpuscular Hemoglobin 29.5 pg (27.0-31.0); Mean Corpuscular Volume 93.1 fL (78.0-98.0); Platelet Count 322 10x3/uL (130-400); Red Blood Cell (RBC) Count 4.03 mill/uL (4.20-5.40); White Blood Cell (WBC) Count 8.04 10x3/uL (4.8-10.8)
[2025-04-09 04:53] LABS: ALT (SGPT) 18 U/L (Less than 34); AST (SGOT) 21 U/L (11-34); Albumin 3.4 g/dL (3.1-4.5); Alkaline Phosphatase 101 U/L (40-110); Anion Gap 15 mmol/L (10-20); BUN (Urea Nitrogen) 18 mg/dL (9.8-20.1); Bilirubin, Total 0.5 mg/dL (0.3-1.2); Calc. Creatinine Clearance 107 mL/min (70-130); Calcium 10.0 mg/dL (7.8-10.44); Carbon Dioxide 40 mmol/L (23-31); Chloride 88 mmol/L (98-107); Globulin 3.8 g/dL (2.4-3.5); Glucose 351 mg/dL (83-110); Magnesium 1.7 mg/dL (1.6-2.6); Potassium 4.1 mmol/L (3.5-5.1); Sodium 139 mmol/L (136-145)
[2025-04-09] MEDS: Magnesium 2 GM/50 ML(in water) 2 GM in Premix 1 BAG IVPB SCH (10:19)
[2025-04-09] MEDS: Enoxaparin 40 MG (0.4 mL) SYRINGE SC SCH (10:20)
[2025-04-09] MEDS: Insulin Glargine 30 UNITS/0.3 ML VIAL SC SCH (10:20)
[2025-04-09] MEDS: FLU (Fluad Triv) 25-26 (65UP)PF 45 MCG/0.5 ML Syringe IM ONE (10:22)
[2025-04-09] MEDS: Ondansetron PF 4 MG/2 ML Vial IVP PRN (11:58)
[2025-04-09 12:12] LABS: Influenza A by NAA Not Detected (NotDetected); Influenza B by NAA Not Detected (NotDetected); SARS-CoV-2 NAA Rapid Test Not Detected (NotDetected)
[2025-04-10 05:20] LABS: #Basophils 0.04 10x3/uL (0.0-0.2); #Eosinophils Less than 0.03 10x3/uL (0.0-0.7); #Monocytes 1.03 10x3/uL (0.11-0.59); #Neutrophils 11.47 10x3/uL (1.40-6.50); %Basophils 0.3 % (0.0-1.0); %Eosinophils 0.1 % (0.0-10.0); %Lymphocytes 18.0 % (21.0-51.0); %Monocytes 6.7 % (0.0-10.0); %Neutrophils 74.6 % (42.0-75.0); Hematocrit 34.2 % (36.0-47.0); Hemoglobin 10.7 g/dL (12.0-16.0); Mean Corpuscular Hemoglobin 29.2 pg (27.0-31.0); Mean Corpuscular Volume 93.4 fL (78.0-98.0); Platelet Count 316 10x3/uL (130-400); Red Blood Cell (RBC) Count 3.66 mill/uL (4.20-5.40); White Blood Cell (WBC) Count 15.37 10x3/uL (4.8-10.8)
[2025-04-10 05:37] LABS: ALT (SGPT) 21 U/L (Less than 34); AST (SGOT) 22 U/L (11-34); Albumin 3.2 g/dL (3.1-4.5); Alkaline Phosphatase 85 U/L (40-110); Anion Gap 10 mmol/L (10-20); BUN (Urea Nitrogen) 30 mg/dL (9.8-20.1); Bilirubin, Total 0.3 mg/dL (0.3-1.2); Calc. Creatinine Clearance 84 mL/min (70-130); Calcium 9.6 mg/dL (7.8-10.44); Carbon Dioxide 39 mmol/L (23-31); Chloride 93 mmol/L (98-107); Globulin 3.3 g/dL (2.4-3.5); Glucose 119 mg/dL (83-110); Magnesium 1.9 mg/dL (1.6-2.6); Potassium 3.6 mmol/L (3.5-5.1); Sodium 138 mmol/L (136-145)
[2025-04-10 15:31] VITALS: BMI 31.9
[2025-04-10] MEDS: Magnesium 2 GM/50 ML(in water) 2 GM in Premix 1 BAG IVPB SCH (15:39)
[2025-04-11 05:36] LABS: #Basophils Less than 0.03 10x3/uL (0.0-0.2); #Eosinophils 0.11 10x3/uL (0.0-0.7); #Monocytes 0.61 10x3/uL (0.11-0.59); #Neutrophils 4.77 10x3/uL (1.40-6.50); %Basophils 0.1 % (0.0-1.0); %Eosinophils 1.4 % (0.0-10.0); %Lymphocytes 28.6 % (21.0-51.0); %Monocytes 7.9 % (0.0-10.0); %Neutrophils 61.7 % (42.0-75.0); Hematocrit 34.0 % (36.0-47.0); Hemoglobin 10.6 g/dL (12.0-16.0); Mean Corpuscular Hemoglobin 29.5 pg (27.0-31.0); Mean Corpuscular Volume 94.7 fL (78.0-98.0); Platelet Count 300 10x3/uL (130-400); Red Blood Cell (RBC) Count 3.59 mill/uL (4.20-5.40); White Blood Cell (WBC) Count 7.73 10x3/uL (4.8-10.8)
[2025-04-11 06:51] LABS: Anion Gap 9 mmol/L (10-20); BUN (Urea Nitrogen) 22 mg/dL (9.8-20.1); Calc. Creatinine Clearance 99 mL/min (70-130); Calcium 9.1 mg/dL (7.8-10.44); Carbon Dioxide 34 mmol/L (23-31); Chloride 96 mmol/L (98-107); Glucose 92 mg/dL (83-110); Potassium 3.3 mmol/L (3.5-5.1); Sodium 136 mmol/L (136-145)
[2025-04-12 04:15] LABS: #Basophils Less than 0.03 10x3/uL (0.0-0.2); #Eosinophils 0.17 10x3/uL (0.0-0.7); #Monocytes 0.68 10x3/uL (0.11-0.59); #Neutrophils 4.43 10x3/uL (1.40-6.50); %Basophils 0.3 % (0.0-1.0); %Eosinophils 2.3 % (0.0-10.0); %Lymphocytes 28.5 % (21.0-51.0); %Monocytes 9.2 % (0.0-10.0); %Neutrophils 59.6 % (42.0-75.0); Hematocrit 33.6 % (36.0-47.0); Hemoglobin 10.6 g/dL (12.0-16.0); Mean Corpuscular Hemoglobin 29.6 pg (27.0-31.0); Mean Corpuscular Volume 93.9 fL (78.0-98.0); Platelet Count 259 10x3/uL (130-400); Red Blood Cell (RBC) Count 3.58 mill/uL (4.20-5.40); White Blood Cell (WBC) Count 7.43 10x3/uL (4.8-10.8)
[2025-04-12 04:42] LABS: ALT (SGPT) 18 U/L (Less than 34); AST (SGOT) 23 U/L (11-34); Albumin 2.9 g/dL (3.1-4.5); Alkaline Phosphatase 78 U/L (40-110); Anion Gap 10 mmol/L (10-20); BUN (Urea Nitrogen) 17 mg/dL (9.8-20.1); Bilirubin, Total 0.4 mg/dL (0.3-1.2); Calc. Creatinine Clearance 91 mL/min (70-130); Calcium 8.8 mg/dL (7.8-10.44); Carbon Dioxide 29 mmol/L (23-31); Chloride 102 mmol/L (98-107); Globulin 3.1 g/dL (2.4-3.5); Glucose 115 mg/dL (83-110); Magnesium 1.8 mg/dL (1.6-2.6); Potassium 3.9 mmol/L (3.5-5.1); Sodium 137 mmol/L (136-145)
[2025-04-12] MEDS: Magnesium 2 GM/50 ML(in water) 2 GM in Premix 1 BAG IVPB SCH (08:34)
[2025-04-12] MEDS: Acetaminophen 325 MG TAB PO PRN (21:09)
[2025-04-13 04:34] LABS: #Basophils Less than 0.03 10x3/uL (0.0-0.2); #Eosinophils 0.22 10x3/uL (0.0-0.7); #Monocytes 0.66 10x3/uL (0.11-0.59); #Neutrophils 4.43 10x3/uL (1.40-6.50); %Basophils 0.3 % (0.0-1.0); %Eosinophils 2.9 % (0.0-10.0); %Lymphocytes 29.3 % (21.0-51.0); %Monocytes 8.7 % (0.0-10.0); %Neutrophils 58.7 % (42.0-75.0); Hematocrit 31.6 % (36.0-47.0); Hemoglobin 9.8 g/dL (12.0-16.0); Mean Corpuscular Hemoglobin 29.3 pg (27.0-31.0); Mean Corpuscular Volume 94.6 fL (78.0-98.0); Platelet Count 259 10x3/uL (130-400); Red Blood Cell (RBC) Count 3.34 mill/uL (4.20-5.40); White Blood Cell (WBC) Count 7.55 10x3/uL (4.8-10.8)
[2025-04-13 04:43] LABS: Magnesium 1.9 mg/dL (1.6-2.6)
[2025-04-13] MEDS: Magnesium 2 GM/50 ML BAG (IN WATER) ONE (05:42)
[2025-04-14 04:48] LABS: Magnesium 1.8 mg/dL (1.6-2.6)
[2025-04-14] MEDS: Magnesium 2 GM/50 ML(in water) 2 GM in Premix 1 BAG IVPB SCH (08:28)
[2025-04-14] MEDS: AcetaZOLAMIDE ER 500 MG CAP PO SCH (21:22)
[2025-04-15] MEDS: Metoprolol Succinate XL 50 MG ER.TAB PO SCH (07:49)
[2025-04-15] MEDS: Ezetimibe 10 MG TAB PO SCH (07:49)
[2025-04-15] MEDS ORDERED: Aluminum & Magnesium Hydroxide 60 ML, Lidocaine 2% Viscous Solution 30 ML, diphenhydrAM... SSW PRN (10:18)
[2025-04-15] MEDS ORDERED: Nystatin 500,000 UNITS/5 ML UDCUP SSW SCH (10:30)
[2025-04-15 11:31] VITALS: BP 132/72; TEMP 98.2
== END 2025-04-15 14:17 | disposition home or self-care (01) | DRG 291 ==
LOC: ERS 10:26 → ERHOLD 14:00 → IMCU/EMU 19:29 → PCU 04-12 13:37
PROVIDERS: ADMIT Family Medicine; ATTEND Internal Medicine
PROC: 4A133R1 Monitoring of Arterial Saturation, Peripheral, Percutaneous Approach (ICD-10-PCS; principal; 2025-04-08)
PROC: 5A09357 Assistance with Respiratory Ventilation, Less than 24 Consecutive Hours, Continuous Positive Airway Pressure (ICD-10-PCS; 2025-04-09)
DX: I50.33 Acute on chronic diastolic (congestive) heart failure (principal); G93.41 Metabolic encephalopathy; J96.21 Acute and chronic respiratory failure with hypoxia; E87.20 Acidosis, unspecified; J44.1 Chronic obstructive pulmonary disease with (acute) exacerbation; E87.3 Alkalosis; Z79.899 Other long term (current) drug therapy; Z98.890 Other specified postprocedural states; Z98.51 Tubal ligation status; E11.9 Type 2 diabetes mellitus without complications; I48.91 Unspecified atrial fibrillation; Z87.891 Personal history of nicotine dependence; Z88.8 Allergy status to other drugs, medicaments and biological substances; E87.5 Hyperkalemia; Z88.5 Allergy status to narcotic agent; M25.552 Pain in left hip; E88.09 Other disorders of plasma-protein metabolism, not elsewhere classified
CPT/HCPCS: 36415; 36416; 36600; 71045; 80048; 80053; 82805; 83036; 83735; 83880; 84484; 85025; 87636; 90653; 93005; 93306; 94640; 94660; 94760; 96374; 96375; 97139; J0456; J1120; J1650; J1815; J2919; J3475; J7050